=== PATIENT | male | born 1965 | race Caucasian/White ===

== ENCOUNTER 2021-03-13 | Inpatient (IN) | payer MEDICARE, OTHER | END 2021-03-13 17:34 | disposition left against medical advice (07) | DRG 280 | PROVIDERS: ADMIT Hospitalist | PROC: 5A09357 Assistance with Respiratory Ventilation, Less than 24 Consecutive Hours, Continuous Positive Airway Pressure (ICD-10-PCS; principal; 2021-03-13) | PROC: 5A0935A Assistance with Respiratory Ventilation, Less than 24 Consecutive Hours, High Flow/Velocity Cannula (ICD-10-PCS; 2021-03-13) | CPT/HCPCS: 36415; 71045; 80053; 82550; 82553; 83605; 83735; 83880; 84484; 85025; 85610; 85730; 93005; 93306; 94640; 94660; 94760; 99291 ==

== ENCOUNTER 2021-12-06 23:09 | Inpatient (IN) | payer MEDICARE, OTHER ==
[2021-12-06] MEDS ORDERED: ALBUTEROL NEBULIZED 2.5 MG/3 ML INHALATION STA (23:12)
[2021-12-06] MEDS ORDERED: IPRATROPIUM 0.5 MG/2.5 ML NEBU INHALATION STA (23:12)
--- NOTE | 2021-12-06 23:14 | ED ---
Recheck HPI - General Stated Complaint: SOB Time Seen by Provider: 12/06/21 23:10 Source: RN notes reviewed, old records reviewed Mode of arrival: EMS Limitations: no limitations - History of Present Illness Initial Comments: This is a 55-year-old male who presents via today. Patient presents today for evaluation of intubation. Patient was transfer from outside facility for ICU management of respiratory failure and hypercapnic respiratory failure and intubation. Hypoxia. Patient I will provide history history obtained from patient's prior chart transferring physician Complaint: other (Intubated for ICU placement) -: hour(s) Returns Today for: other (Patient has no change from initial evaluation outside facility) Context: planned re-check Associated Symptoms: none Treatments Prior to Arrival: other medications, urinary catheter in place, Given Antibiotics on, Given Pain Meds on - Related Data Home Medications Medication Instructions Recorded Confirmed Albuterol Inhaler [Ventolin Hfa 2 puff INHALATION RT-Q4H PRN 03/13/21 03/13/21 Inhaler] Buprenorphine HCl/Naloxone HCl 1 film SL DAILY 03/13/21 03/13/21 [Suboxone 8 mg-2 mg Sl Film] Cetirizine HCl [Zyrtec] 10 mg PO DAILY 03/13/21 03/13/21 Fluticasone Nasal [place] [Flonase 1 spr EA NOSTRIL DAILY 03/13/21 03/13/21 Nasal [place]] Gabapentin 600 mg PO TID 03/13/21 03/13/21 Ipratropium/Albuterol Sulfate 1 puff INHALATION RT-QID 03/13/21 03/13/21 [Combivent Respimat Inhaler] LORazepam [Ativan] 1 mg PO TID PRN 03/13/21 03/13/21 Lisdexamfetamine Dimesylate 60 mg PO DAILY 03/13/21 03/13/21 [Vyvanse] QUEtiapine [SEROquel] 200 mg PO HS 03/13/21 03/13/21 Tamsulosin [Flomax] 0.4 mg PO DAILY 03/13/21 03/13/21 Vilazodone HCl [Viibryd] 20 mg PO DAILY 03/13/21 03/13/21 cloNIDine HCL [Catapres] 0.1 mg PO TID 06/16/21 06/16/21 lisinopriL 40 mg PO DAILY 03/13/21 03/13/21 Allergies Allergy/AdvReac Type Severity Reaction Status Date / Time No Known Allergies Allergy Verified 12/06/21 23:21 Review of Systems ROS Statement: Those systems with pertinent positive or pertinent negative responses have been documented in the HPI. ROS Other: All systems not noted in ROS Statement are negative. Past Medical History Past Medical History: Coronary Artery Disease (CAD), COPD, Diabetes Mellitus, Hyperlipidemia, Hypertension History of Any Multi-Drug Resistant Organisms: None Reported Past Surgical History: Heart Catheterization With Stent Additional Past Surgical History / Comment(s): 2 BRAIN ANERYSM, SHOULDER Past Anesthesia/Blood Transfusion Reactions: No Reported Reaction Date of Last Stent Placement:: 2014 Past Psychological History: No Psychological Hx Reported Smoking Status: Current every day smoker Past Alcohol Use History: None Reported Past Drug Use History: None Reported - Past Family History Mother Family Medical History: Cancer Father Family Medical History: Diabetes Mellitus General Exam Limitations: physical limitation General appearance: alert, in no apparent distress, anxious, in distress Head exam: Present: atraumatic, normocephalic, normal inspection Eye exam: Present: normal appearance, PERRL, EOMI. Absent: scleral icterus, conjunctival injection, periorbital swelling ENT exam: Present: normal exam, mucous membranes moist Neck exam: Present: normal inspection. Absent: tenderness, meningismus, lymphadenopathy Respiratory exam: Present: normal lung sounds bilaterally. Absent: respiratory distress, wheezes, rales, rhonchi, stridor Cardiovascular Exam: Present: regular rate, normal rhythm, normal heart sounds. Absent: systolic murmur, diastolic murmur, rubs, gallop, clicks GI/Abdominal exam: Present: soft, normal bowel sounds. Absent: distended, ten derness, guarding, rebound, rigid Extremities exam: Present: normal inspection, full ROM, normal capillary refill. Absent: tenderness, pedal edema, joint swelling, calf tenderness Back exam: Present: normal inspection Neurological exam: Present: alert, oriented X3, CN II-XII intact Psychiatric exam: Present: normal affect, normal mood Skin exam: Present: warm, dry, intact, normal color. Absent: rash Course Vital Signs 12/06/21 12/06/21 12/06/21 23:16 23:24 23:31 Temperature 97.3 F L Pulse Rate 99 93 89 Respiratory 22 20 Rate Blood Pressure 167/117 163/93 O2 Sat by Pulse 99 95 Oximetry 12/06/21 12/06/21 23:43 23:46 Temperature Pulse Rate 87 91 Respiratory 22 Rate Blood Pressure 166/105 O2 Sat by Pulse 100 Oximetry - Reevaluation(s) Reevaluation #1: 12/07/21 01:04 Medical record is reviewed 12/07/21 01:04 Transferring paperwork is reviewed Reevaluation #2: 12/07/21 01:04 Patient in no acute distress here in the emergency department although intubated and sedated adequately - Consultations Consultation #1: Spoke with sound physicians who agree to admit the patient Consultation #2: Spoke with ICU attending who accepts patient for ICU admission Medical Decision Making - Medical Decision Making 35 male DF for evaluation presents in acute respiratory failure from outside facility. Patient be admitted to ICU for continued breathing treatment steroids cardiopulmonary support - Lab Data Lab Results 12/07/21 Range/Units 00:39 Sample Site rrad ABG pH 7.41 (7.35-7.45) ABG pCO2 63 H (35-45) mmHg ABG pO2 256 H (83-108) mmHg ABG HCO3 40 H* (21-25) mmol/L ABG Total CO2 42 H (19-24) mmol/L ABG O2 Saturation 100.0 H (94-97) % ABG Base Excess 15.7 mmol/L Justen Test Yes FiO2 100 % - Radiology Data Radiology results: report reviewed (Chest x-ray shows good ET tube placement), image reviewed Disposition Clinical Impression: Acute exacerbation of chronic obstructive pulmonary disease, Hypoxia, Acute respiratory failure Disposition: ADMITTED IP TO THIS [facility] Condition: Serious Is patient prescribed a controlled substance at d/c from ED?: No Referrals: None,Stated [Primary Care Provider] - 1-2 days
[2021-12-06] MEDS ORDERED: PROPOFOL 10 MG/ML 20 ML VIAL IV ONE (23:16)
[2021-12-06] MEDS ORDERED: MIDAZOLAM 1 MG/ML 5 ML VIAL IV STA (23:27)
--- NOTE | 2021-12-06 23:57 | XR ---
EXAMINATION TYPE: XR chest 1V portable DATE OF EXAM: 12/06/2021 COMPARISON: 03/13/2021 HISTORY: Short of breath. Respiratory failure. TECHNIQUE: FINDINGS: Endotracheal tube is approximately 4 cm from the vinita. There is nasogastric tube in the stomach. Th ere is no heart failure nor confluent pneumonic infiltrate. There is no pleural effusion. IMPRESSION: Tubing in good position. No heart failure or pulmonary consolidation.
[2021-12-07] MEDS ORDERED: MIDAZOLAM 1 MG/ML 5 ML VIAL IV STA (00:28)
[2021-12-07 00:40] LABS: ABG Base Excess 15.7 mmol/L; ABG PCO2 63 mmHg (35-45); ABG PH 7.41 (7.35-7.45); ABG PO2 256 mmHg (83-108); ABG TCO2 42 mmol/L (19-24); Allen Test Performed? Yes
[2021-12-07 00:55] LABS: ABG HCO3 40 mmol/L (21-25)
[2021-12-07] MEDS ORDERED: NALOXONE 0.4 MG/ML 1 ML VIAL IV PRN ×2 (01:00→09:15)
[2021-12-07] MEDS ORDERED: MORPHINE SULFATE 4 MG/ML SYRINGE IV PRN (01:00)
[2021-12-07] MEDS: MIDAZOLAM HCL 50 MG in SODIUM CHLORIDE 0.9% 40 ML IV SCH ×2 (01:41→08:48)
[2021-12-07 02:26] LABS: Glucose,Whole Blood 117 mg/dL (75-99)
--- NOTE | 2021-12-07 02:41 | P.HPIM ---
History of Present Illness H&P Date: 12/07/21 Patient is a 55-year-old male with a PMH of COPD and hypertension who was sent in from [facility] where the patient presented earlier today at 4 PM for shortness of breath. The patient was intubated at the time of evaluation and thereby history obtained from the chart. The patient reportedly had endorsed gradually worsening shortness of breath further 2 hours prior to presentation and [facility]. The patient was noted to have a mild fever of 100.6F on presentation with ABG showing significant hypercapnia with pCO2 101. The patient was initially placed on a nonrebreather mask without improvement and was subsequently intubated and was sent to the [facility] emergency room. Laboratory evaluation from [facility] was reviewed with influenza and COVID 19 testing negative, sodium 136, potassium 4.9, chloride 89, CO2 42, BUN 11.5, creatinine 0.65, troponin I 0.02, AST 38, ALT 28, alk phos 98, total bilirubin 1.4, lactate 1.35, WBC count 11.7, hemoglobin 15, and platelets 210. EKG revealed sinus tachycardia at 117 bpm. Review of systems: Unable to perform as patient was intubated Physical examination: General: non toxic, no distress, appears at stated age, obese Derm: no unusual rashes/lesions no unusual ecchymoses, warm, dry Head: atraumatic, normocephalic, symmetric Eyes: EOMI, no lid lag, anicteric sclera, pupils equal round reactive to light ENT: Nose and ears atraumatic Neck: No thyromegaly, no cervical lymphadenopathy, trachea midline, supple Mouth: no lip lesion Cardiovascular: S1S2 reg, no murmur, positive posterior tibial pulse bilateral, no edema, capillary refill less than 2 seconds Lungs: CTA bilateral, no rhonchi, no rales , no accessory muscle use Abdominal: soft, nontender to palpation, no guarding, no appreciable organomegaly, normal bowel sounds Ext: no gross muscle atrophy, no contractures, Neuro: Opens eyes to noxious stimuli Psych: Unable to assess, patient intubated Assessment/plan Acute hypoxic and hypercapnic respiratory failure in setting of COPD exacerbation -Continue Solu-Medrol -DuoNeb's -Pulmonary consult -Ventilator bundle Chronic conditions: Hypertension -Continue with home meds DVT prophylaxis -Lovenox The patient is admitted with an anticipated greater than 2 midnight stay for evaluation of COPD exacerbation CODE STATUS: Full Code Discussed with: Patient Anticipated discharge date: 12/[address]: Home Past Medical History Past Medical History: Coronary Artery Disease (CAD), COPD, Diabetes Mellitus, Hyperlipidemia, Hypertension History of Any Multi-Drug Resistant Organisms: None Reported Past Surgical History: Heart Catheterization With Stent Additional Past Surgical History / Comment(s): 2 BRAIN ANERYSM, SHOULDER Past Anesthesia/Blood Transfusion Reactions: No Reported Reaction Date of Last Stent Placement:: 2014 Past Psychological History: No Psychological Hx Reported Smoking Status: Current every day smoker Past Alcohol Use History: None Reported Past Drug Use History: None Reported - Past Family History Mother Family Medical History: Cancer Father Family Medical History: Diabetes Mellitus Medications and Allergies Home Medications Medication Instructions Recorded Confirmed Type Albuterol Inhaler [Ventolin Hfa 2 puff INHALATION RT-Q4H PRN 03/13/21 03/13/21 History Inhaler] Buprenorphine HCl/Naloxone HCl 1 film SL DAILY 03/13/21 03/13/21 History [Suboxone 8 mg-2 mg Sl Film] Cetirizine HCl [Zyrtec] 10 mg PO DAILY 03/13/21 03/13/21 History Fluticasone Nasal [place] [Flonase 1 spr EA NOSTRIL DAILY 03/13/21 03/13/21 History Nasal [place]] Gabapentin 600 mg PO TID 03/13/21 03/13/21 History Ipratropium/Albuterol Sulfate 1 puff INHALATION RT-QID 03/13/21 03/13/21 History [Combivent Respimat Inhaler] LORazepam [Ativan] 1 mg PO TID PRN 03/13/21 03/13/21 History Lisdexamfetamine Dimesylate 60 mg PO DAILY 03/13/21 03/13/21 History [Vyvanse] QUEtiapine [SEROquel] 200 mg PO HS 03/13/21 03/13/21 History Tamsulosin [Flomax] 0.4 mg PO DAILY 03/13/21 03/13/21 History Vilazodone HCl [Viibryd] 20 mg PO DAILY 03/13/21 03/13/21 History cloNIDine HCL [Catapres] 0.1 mg PO TID 03/13/21 03/13/21 History lisinopriL 40 mg PO DAILY 03/13/21 03/13/21 History Allergies Allergy/AdvReac Type Severity Reaction Status Date / Time No Known Allergies Allergy Verified 12/06/21 23:21 Physical Exam Vitals: Vital Signs Temp Pulse Resp BP Pulse Ox 12/07/21 01:49 98.6 F 103 H 22 182/110 91 L 12/07/21 00:30 108 H 26 H 186/118 92 L 12/06/21 23:46 91 12/06/21 23:43 87 22 166/105 100 12/06/21 23:31 89 12/06/21 23:24 93 20 163/93 95 12/06/21 23:16 97.3 F L 99 22 167/117 99 Intake and Output 12/06/21 12/06/21 12/07/21 14:59 22:59 06:59 Intake Total 72.580 Output Total 500 Balance -427.420 Intake: Intake, IV Titration 72.580 Amount propofoL 1,000 mg In 72.580 Empty Bag 1 bag @ Titrate IV .Q0M [facility] Rx#: [id number] Output: Gastric Drainage 200 Urine 300 Other: Voiding Method Indwelling Catheter Weight 114.3 kg Results Labs: Abnormal Lab Results - Last 24 Hours (Table) 12/07/21 12/07/21 Range/Units 00:39 02:22 ABG pCO2 63 H (35-45) mmHg ABG pO2 256 H (83-108) mmHg ABG HCO3 40 H* (21-25) mmol/L ABG Total CO2 42 H (19-24) mmol/L ABG O2 Saturation 100.0 H (94-97) % POC Glucose (mg/dL) 117 H (75-99) mg/dL
[2021-12-07 05:49] LABS: ABG Oxygen Saturation 94.8 % (94-97); ABG PCO2 49 mmHg (35-45); ABG PH 7.52 (7.35-7.45); ABG PO2 62 mmHg (83-108); ABG TCO2 41 mmol/L (19-24); Allen Test Performed? Yes
[2021-12-07 05:52] LABS: ABG HCO3 40 mmol/L (21-25)
[2021-12-07] MEDS: IPRATROPIUM-ALBUTEROL 3 ML NEB INHALATION SCH ×4 (07:49→20:09)
[2021-12-07 08:13] LABS: HCT 48.8 % (39.0-53.0); HGB 15.2 gm/dL (13.0-17.5); Hypochromasia Marked; MCV 96.6 fL (80.0-100.0); Mean Platelet Volume 8.8; Platelet Count 194 k/uL (150-450); Poikilocytosis Slight; RBC 5.06 m/uL (4.30-5.90); RDW 15.5 % (11.5-15.5); WBC 6.3 k/uL (3.8-10.6)
--- NOTE | 2021-12-07 08:15 | XR ---
EXAMINATION TYPE: XR chest 1V portable DATE OF EXAM: 12/07/2021 COMPARISON: 12/06/2021 HISTORY: Tube placement TECHNIQUE: Single frontal view of the chest is obtained. FINDINGS: There is an ET tube 9 cm above the vinita. There is an NG tube in stomach. There is moderate diffuse interstitial opacity possibly representing mild interstitial edema unchange d compared to previous. There is no pneumothorax or large pleural effusion. Heart size normal. The osseous structures are layla ssly intact. IMPRESSION: ET tube 9 cm above the vinita no change in the interstitial opacity possibly reflecting mild interstitial edema
[2021-12-07 08:21] LABS: African American GFR (CKD) >90 (>60 ml/min/1.73 sqM); Anion Gap 7 mmol/L; Blood Urea Nitrogen 17 mg/dL (9-20); Calcium 8.7 mg/dL (8.4-10.2); Carbon Dioxide 36 mmol/L (22-30); Chloride 92 mmol/L (98-107); Glucose 142 mg/dL (74-99); Non-African American GFR(CKD) >90 (>60 ml/min/1.73 sqM); Potassium 4.2 mmol/L (3.5-5.1); Sodium 135 mmol/L (137-145)
[2021-12-07 08:28] LABS: INR 1.4 (<1.2); Prothrombin Time 14.3 sec (9.0-12.0)
--- NOTE | 2021-12-07 10:43 | P.CNPUL ---
History of Present Illness Consult date: 12/07/21 Requesting physician: Marco Garcia Reason for consult: COPD, hypoxemia (Critical care/mechanical ventilator management) Chief complaint: Acute respiratory failure History of present illness: This is a 55-year-old male patient with a known history of coronary artery disease with previous stent placements, chronic and ongoing tobacco dependence, chronic obstructive pulmonary disease, hypertension, diabetes mellitus, brain aneurysm with repair, polysubstance abuse, chronic pain syndrome, anxiety. He was taken to [facility] for acute hypoxemic respiratory failure was intubated there and subsequently transferred here for further management. He is seen today in consultation in the intensive care unit. He was intubated yesterday 12/06/2021. He is currently on settings of assist control mode with a rate of 24, tidal volume 450, FiO2 50% and a PEEP of 5. Morning blood gases revealed a PaO2 of 62, pCO2 49, pH 7.52. He is sedated on propofol 50 mcg/kg/m. He is on Versed at 1 mg per hour. Normal saline at KVO. Chest x-ray reveals moderate diffuse interstitial opacity opacities recommending mild interstitial edema. No evidence of pneumothorax or large pleural effusions. Endotracheal tube 9 cm above the vinita that has been repositioned. Sputum culture pending. White count 6.3. Hemoglobin 15.2. Sodium 135. Potassium 4.2. Bicarb 36. BUN 1317. Creatinine 0.68. He's been initiated on DuoNeb inhalations, Pulmicort and Perforomist inhalations, IV Solu-Medrol. Review of Systems ROS unobtainable: due to endotracheal tube Past Medical History Past Medical History: Coronary Artery Disease (CAD), COPD, Diabetes Mellitus, Hyperlipidemia, Hypertension History of Any Multi-Drug Resistant Organisms: None Reported Past Surgical History: Heart Catheterization With Stent Additional Past Surgical History / Comment(s): 2 BRAIN ANERYSM, SHOULDER Past Anesthesia/Blood Transfusion Reactions: No Reported Reaction Date of Last Stent Placement:: 2014 Past Psychological History: No Psychological Hx Reported Smoking Status: Current every day smoker Past Alcohol Use History: None Reported Past Drug Use History: None Reported - Past Family History Mother Family Medical History: Cancer Father Family Medical History: Diabetes Mellitus Medications and Allergies Home Medications Medication Instructions Recorded Confirmed Type Albuterol Inhaler [Ventolin Hfa 2 puff INHALATION RT-Q4H PRN 03/13/21 03/13/21 History Inhaler] Buprenorphine HCl/Naloxone HCl 1 film SL DAILY 03/13/21 03/13/21 History [Suboxone 8 mg-2 mg Sl Film] Cetirizine HCl [Zyrtec] 10 mg PO DAILY 03/13/21 03/13/21 History Fluticasone Nasal [place] [Flonase 1 spr EA NOSTRIL DAILY 03/13/21 03/13/21 History Nasal [place]] Gabapentin 600 mg PO TID 03/13/21 03/13/21 History Ipratropium/Albuterol Sulfate 1 puff INHALATION RT-QID 03/13/21 03/13/21 History [Combivent Respimat Inhaler] LORazepam [Ativan] 1 mg PO TID PRN 03/13/21 03/13/21 History Lisdexamfetamine Dimesylate 60 mg PO DAILY 03/13/21 03/13/21 History [Vyvanse] QUEtiapine [SEROquel] 200 mg PO HS 03/13/21 03/13/21 History Tamsulosin [Flomax] 0.4 mg PO DAILY 03/13/21 03/13/21 History Vilazodone HCl [Viibryd] 20 mg PO DAILY 03/13/21 03/13/21 History cloNIDine HCL [Catapres] 0.1 mg PO TID 03/13/21 03/13/21 History lisinopriL 40 mg PO DAILY 03/13/21 03/13/21 History Allergies Allergy/AdvReac Type Severity Reaction Status Date / Time No Known Allergies Allergy Verified 12/06/21 23:21 Physical Exam Vitals: Vital Signs Temp Pulse Resp BP Pulse Ox 12/07/21 09:00 99 24 162/91 90 L 12/07/21 08:30 96 24 162/91 91 L 12/07/21 08:00 98.8 F 97 24 160/94 92 L 12/07/21 07:50 94 12/07/21 07:30 96 24 160/94 89 L 12/07/21 07:00 93 23 90 L 12/07/21 06:30 84 21 158/94 89 L 12/07/21 06:00 92 21 159/93 89 L 12/07/21 05:30 95 17 159/93 90 L 12/07/21 05:00 94 19 155/97 92 L 12/07/21 04:30 99.1 F 98 24 155/97 88 L 12/07/21 04:00 100 24 158/93 88 L 12/07/21 03:40 96 24 158/93 92 L 12/07/21 03:30 93 25 H 91 L 12/07/21 03:20 98 22 92 L 12/07/21 03:10 98 23 92 L 12/07/21 03:00 101 H 25 H 91 L 12/07/21 02:50 99 24 89 L 12/07/21 02:47 101 H 24 156/96 90 L 12/07/21 01:49 98.6 F 103 H 22 182/110 91 L 12/07/21 00:30 108 H 26 H 186/118 92 L 12/06/21 23:46 91 12/06/21 23:43 87 22 166/105 100 12/06/21 23:31 89 12/06/21 23:24 93 20 163/93 95 12/06/21 23:16 97.3 F L 99 22 167/117 99 Intake and Output 12/06/21 12/07/21 12/07/21 22:59 06:59 14:59 Intake Total 158.757 150.6 Output Total 680 130 Balance -521.243 20.6 Intake: IV 40 0.9 NACl 40 Intake, IV Titration 158.757 110.6 Amount Midazolam HCl 50 mg In 1.817 10.6 Sodium Chloride 0.9% 40 ml @ 1 MG/HR 1 mls/hr IV .Q24H [facility] Rx#:[id number] propofoL 1,000 mg In 84.36 100 Empty Bag 1 bag @ 5 MCG/ KG/MIN 3.33 mls/hr IV . Q24H [facility] Rx#:[id number] propofoL 1,000 mg In 72.580 Empty Bag 1 bag @ Titrate IV .Q0M [facility] Rx#: [id number] Output: Gastric Drainage 200 Urine 480 130 Other: Voiding Method Indwelling Catheter Weight 111 kg GENERAL EXAM: Intubated, sedated 55-year-old male patient, comfortable in no apparent distress. HEAD: Normocephalic. EYES: Normal reaction of pupils, equal size. NOSE: Clear with pink turbinates. THROAT: No erythema or exudates. NECK: No masses, no JVD. CHEST: No chest wall deformity. LUNGS: Equal air entry with bilateral wheeze. CVS: S1 and S2 normal with no audible murmur, regular rhythm. ABDOMEN: No hepatosplenomegaly, normal bowel sounds, no guarding or rigidity. SPINE: No scoliosis or deformity SKIN: No rashes CENTRAL NERVOUS SYSTEM: Sedated, tone is normal in all 4 extremities. EXTREMITIES: There is no peripheral edema. No clubbing, no cyanosis. Peripheral pulses are intact. Results - Laboratory Findings CBC and BMP: 12/07/21 07:45 12/07/21 07:45 ABG ABG pH 7.52 (7.35-7.45) H 12/07/21 05:47 ABG pCO2 49 mmHg (35-45) H 12/07/21 05:47 ABG pO2 62 mmHg (83-108) L 12/07/21 05:47 ABG O2 Saturation 94.8 % (94-97) 12/07/21 05:47 PT/INR, D-dimer PT 14.3 sec (9.0-12.0) H 12/07/21 07:45 INR 1.4 (<1.2) H 12/07/21 07:45 Abnormal lab findings: Abnormal Labs 12/07/21 12/07/21 12/07/21 00:39 02: 05:47 PT INR ABG pH 7.52 H ABG pCO2 63 H 49 H ABG pO2 256 H 62 L ABG HCO3 40 H* 40 H* ABG Total CO2 42 H 41 H ABG O2 Saturation 100.0 H Sodium Chloride Carbon Dioxide Glucose POC Glucose (mg/dL) 117 H 12/07/21 12/07/21 07:45 07:45 PT 14.3 H INR 1.4 H ABG pH ABG pCO2 ABG pO2 ABG HCO3 ABG Total CO2 ABG O2 Saturation Sodium 135 L Chloride 92 L Carbon Dioxide 36 H Glucose 142 H POC Glucose (mg/dL) - Diagnostic Findings Chest x-ray: image reviewed Assessment and Plan Assessment: 1 Acute hypoxemic respiratory failure secondary to an acute exacerbation of chronic obstructive pulmonary disease. Intubated at an outside hospital on 12/06/2021. 2 History of chronic obstructive pulmonary disease of greater than 45 year 3 History of chronic and ongoing tobacco dependence 4 Coronary artery disease with previous stent placements 5 Hypertension 6 Hyperlipidemia 7 History of polysubstance abuse 8 Chronic pain syndrome 9 Anxiety. Plan: The patient was seen and evaluated Chest x-ray, ABGs and labs reviewed Plan for daily interruption of sedation and spontaneous breathing trial Plan to extubate the patient later today if tolerated Continue DuoNeb inhalations, Pulmicort and Perforomist inhalations, IV Solu medrol Add NicoDerm patch Resume home medications once extubated We will continue to follow and make further recommendations based on his clinical status I have personally seen and examined the patient, performed the documentation and the assessment and plan as written. Number of minutes spent on the visit: 20.
[2021-12-07] MEDS: CHLORHEXIDINE GLUCONATE 15 ML CUP MUCOUS MEM SCH ×2 (10:48→20:29)
[2021-12-07] MEDS: ENOXAPARIN 40 MG/0.4 ML SYRINGE SQ SCH (10:48)
[2021-12-07 12:22] LABS: Appearance,Urine Clear (Clear); Bilirubin,Urine 1+ (Negative); Blood,Urine Negative (Negative); Color,Urine Yellow; Glucose,Urine (UA) Negative (Negative); Ketones,Urine 2+ (Negative); Leukocyte Esterase,Urine Negative (Negative); Nitrite,Urine Negative (Negative); PH, Urine 8.5 (5.0-8.0); Protein,Urine 1+ (Negative); RBC,Urine 3 /hpf (0-5); WBC,Urine 3 /hpf (0-5)
[2021-12-07] MEDS ORDERED: SODIUM CHLORIDE 0.9% 1,000 ML IV ONE (15:28)
[2021-12-07] MEDS ORDERED: ALBUTEROL NEBULIZED 2.5 MG/3 ML INHALATION PRN (15:44)
[2021-12-07] MEDS: cloNIDine HCL 0.1 MG TAB PO SCH ×2 (17:21→20:29)
[2021-12-07] MEDS: GABAPENTIN 300 MG CAP PO SCH ×2 (17:21→20:29)
[2021-12-07] MEDS: methylPREDNISolone SOD SUCCI 125 MG/2 ML VIAL IV SCH (17:21)
[2021-12-07] MEDS ORDERED: NON FORMULARY DRUG (Budesonide/Glycopyr/Formoterol [Breztri Aerosphere Inhaler] 10.7 GM Gm INHALATION SCH (20:00)
[2021-12-07] MEDS: FORMOTEROL FUMARATE 20 MCG/2 ML NEBU INHALATION SCH (20:09)
[2021-12-07] MEDS: BUDESONIDE 1 MG/2 ML NEBU INHALATION SCH (20:09)
[2021-12-07] MEDS: Buprenorphine Hcl/Naloxone Hcl [Suboxone 8 Mg-2 Mg Sl Film] 1 EACH Fil SUBLINGUAL SCH (20:28)
[2021-12-07] MEDS: QUEtiapine 200 MG TAB PO SCH (20:29)
[2021-12-08] MEDS: MIDAZOLAM HCL 50 MG in SODIUM CHLORIDE 0.9% 40 ML IV SCH (03:28)
[2021-12-08] MEDS: methylPREDNISolone SOD SUCCI 125 MG/2 ML VIAL IV SCH ×4 (03:32→23:45)
--- NOTE | 2021-12-08 06:43 | XR ---
EXAMINATION TYPE: XR chest 1V portable DATE OF EXAM: 12/08/2021 COMPARISON: 12/07/2021 HISTORY: Shortness of breath. TECHNIQUE: Single frontal view of the chest is obtained. FINDINGS: There has been interval removal of the ET tube and NG tube. There has been a significant r eduction in the pulmonary vascular congestion and interstitial edema. There is no pneumothorax or lar ge pleural effusion. The heart is slightly prominent in size. IMPRESSION: ET tube and NG tube removed. No pneumothorax. Interval decrease in the pulmonary vascula r congestion and interstitial edema.
[2021-12-08 06:44] LABS: ALT 19 U/L (4-49); AST 21 U/L (17-59); African American GFR (CKD) >90 (>60 ml/min/1.73 sqM); Albumin 3.2 g/dL (3.5-5.0); Alkaline Phosphatase 70 U/L (38-126); Anion Gap 1 mmol/L; Blood Urea Nitrogen 19 mg/dL (9-20); Calcium 8.5 mg/dL (8.4-10.2); Carbon Dioxide 37 mmol/L (22-30); Chloride 97 mmol/L (98-107); Glucose 167 mg/dL (74-99); Non-African American GFR(CKD) >90 (>60 ml/min/1.73 sqM); Phosphorus 3.3 mg/dL (2.5-4.5); Potassium 4.6 mmol/L (3.5-5.1); Sodium 135 mmol/L (137-145); Total Bilirubin 1.2 mg/dL (0.2-1.3)
[2021-12-08 06:45] LABS: Basophils % (A) 0 %; Eosinophils % (A) 0 %; HCT 49.3 % (39.0-53.0); HGB 14.6 gm/dL (13.0-17.5); Hypochromasia Marked; Lymphocytes # (A) 0.3 k/uL (1.0-4.8); Lymphocytes % (A) 5 %; MCH 28.6 pg (25.0-35.0); MCHC 29.7 g/dL (31.0-37.0); MCV 96.5 fL (80.0-100.0); Mean Platelet Volume 8.4; Monocytes # (A) 0.2 k/uL (0-1.0); Monocytes % (A) 3 %; Neutrophils # (A) 5.3 k/uL (1.3-7.7); Neutrophils % (A) 91 %; Platelet Count 198 k/uL (150-450); Poikilocytosis Slight; RBC 5.11 m/uL (4.30-5.90); RDW 15.7 % (11.5-15.5); WBC 5.8 k/uL (3.8-10.6)
[2021-12-08] MEDS: Buprenorphine Hcl/Naloxone Hcl [Suboxone 8 Mg-2 Mg Sl Film] 1 EACH Fil SUBLINGUAL SCH ×2 (07:38→22:05)
[2021-12-08] MEDS: BUDESONIDE 1 MG/2 ML NEBU INHALATION SCH ×2 (07:39→19:39)
[2021-12-08] MEDS: FORMOTEROL FUMARATE 20 MCG/2 ML NEBU INHALATION SCH ×2 (07:39→19:39)
[2021-12-08] MEDS: IPRATROPIUM-ALBUTEROL 3 ML NEB INHALATION SCH ×4 (07:39→19:39)
[2021-12-08] MEDS: GABAPENTIN 300 MG CAP PO SCH ×3 (08:14→21:04)
[2021-12-08] MEDS: ENOXAPARIN 40 MG/0.4 ML SYRINGE SQ SCH (08:14)
[2021-12-08] MEDS: lisinopriL 20 MG TAB PO SCH (08:14)
[2021-12-08] MEDS: cloNIDine HCL 0.1 MG TAB PO SCH ×3 (08:14→21:04)
[2021-12-08] MEDS: FUROSEMIDE 20 MG TAB PO SCH (08:14)
[2021-12-08] MEDS: TAMSULOSIN 0.4 MG CAP.ER.24H PO SCH (08:14)
[2021-12-08] MEDS: CHLORHEXIDINE GLUCONATE 15 ML CUP MUCOUS MEM SCH ×2 (08:15→21:04)
--- NOTE | 2021-12-08 09:26 | P.PN ---
Subjective Progress Note Date: 12/08/21 This is a 55-year-old male patient with a known history of coronary artery disease with previous stent placements, chronic and ongoing tobacco dependence, chronic obstructive pulmonary disease, hypertension, diabetes mellitus, brain aneurysm with repair, polysubstance abuse, chronic pain syndrome, anxiety. He was taken to [facility] for acute hypoxemic respiratory failure was intubated there and subsequently transferred here for further management. He is seen today in consultation in the intensive care unit. He was intubated yesterday 12/06/2021. He is currently on settings of assist control mode with a rate of 24, tidal volume 450, FiO2 50% and a PEEP of 5. Morning blood gases revealed a PaO2 of 62, pCO2 49, pH 7.52. He is sedated on propofol 50 mcg/kg/m. He is on Versed at 1 mg per hour. Normal saline at KVO. Chest x-ray reveals moderate diffuse interstitial opacity opacities recommending mild interstitial edema. No evidence of pneumothorax or large pleural effusions. Endotracheal tube 9 cm above the vinita that has been repositioned. Sputum culture pending. White count 6.3. Hemoglobin 15.2. Sodium 135. Potassium 4.2. Bicarb 36. BUN 1317. Creatinine 0.68. He's been initiated on DuoNeb inhalations, Pulmicort and Perforomist inhalations, IV Solu-Medrol. The patient is seen today 12/08/2021 in follow-up in the intensive care unit. He is successfully extubated yesterday. He is currently awake and alert in no acute distress. Maintaining good O2 saturations in the 90s on 5 L high flow nasal cannula. His normal saline and 20 ML's per hour. His x-ray shows decreased pulmonary vascular congestion and interstitial edema. No pneumothorax. Sputum culture pending. White count 5.8. Hemoglobin 14.6. Platelet count 198. Sodium 135. Potassium 4.6. Bicarb 37. BUN 19. Creatinine 0.73. He remains on DuoNeb inhalations, Pulmicort and Perforomist in halations, IV Solu-Medrol. Oral diuretics. Currently in a -197 ml balance. Objective - Vital Signs Vital signs: Vital Signs Temp 100 F H 12/08/21 08:00 Pulse 93 12/08/21 09:00 Resp 18 12/08/21 09:00 BP 144/85 12/08/21 09:00 Pulse Ox 92 L 12/08/21 09:00 Intake & Output 12/07/21 12/08/21 12/08/21 17:59 06:59 18:59 Intake Total 40 Output Total 170 Balance -130 Weight Intake: IV 40 0.9 NACl 40 NACL bolus Intake, IV Titration Amount Midazolam HCl 50 mg In Sodium Chloride 0.9% 40 ml @ 1 MG/HR 1 mls/hr IV .Q24H [facility] Rx#:[id number] propofoL 1,000 mg In Empty Bag 1 bag @ 5 MCG/ KG/MIN 3.33 mls/hr IV . Q24H [facility] Rx#:[id number] Output: Urine 170 Other: Voiding Method - Exam GENERAL EXAM: Alert, 55-year-old male patient, on 5 L nasal cannula, comfortable in no apparent distress. HEAD: Normocephalic. EYES: Normal reaction of pupils, equal size. NOSE: Clear with pink turbinates. THROAT: No erythema or exudates. NECK: No masses, no JVD. CHEST: No chest wall deformity. LUNGS: Equal air entry with no crackles, wheeze, rhonchi or dullness. CVS: S1 and S2 normal with no audible murmur, regular rhythm. ABDOMEN: No hepatosplenomegaly, normal bowel sounds, no guarding or rigidity. SPINE: No scoliosis or deformity SKIN: No rashes CENTRAL NERVOUS SYSTEM: No focal deficits, tone is normal in all 4 extremities. EXTREMITIES: There is no peripheral edema. No clubbing, no cyanosis. Peripheral pulses are intact. - Labs CBC & Chem 7: 12/08/21 05:57 12/08/21 05:57 Labs: Abnormal Lab Results - Last 24 Hours (Table) 12/07/21 12/07/21 12/07/21 Range/Units 07:45 07:45 11:30 MCHC (31.0-37.0) g/dL RDW (11.5-15.5) % Lymphocytes # (1.0-4.8) k/uL PT 14.3 H (9.0-12.0) sec INR 1.4 H (<1.2) Sodium 135 L (137-145) mmol/L Chloride 92 L (98-107) mmol/L Carbon Dioxide 36 H (22-30) mmol/L Glucose 142 H (74-99) mg/dL Total Protein (6.3-8.2) g/dL Albumin (3.5-5.0) g/dL Urine pH 8.5 H (5.0-8.0) Urine Protein 1+ H (Negative) Urine Ketones 2+ H (Negative) Urine Bilirubin 1+ H (Negative) 12/08/21 12/08/21 Range/Units 05:57 05:57 MCHC 29.7 L (31.0-37.0) g/dL RDW 15.7 H (11.5-15.5) % Lymphocytes # 0.3 L (1.0-4.8) k/uL PT (9.0-12.0) sec INR (<1.2) Sodium 135 L (137-145) mmol/L Chloride 97 L (98-107) mmol/L Carbon Dioxide 37 H (22-30) mmol/L Glucose 167 H (74-99) mg/dL Total Protein 6.0 L (6.3-8.2) g/dL Albumin 3.2 L (3.5-5.0) g/dL Urine pH (5.0-8.0) Urine Protein (Negative) Urine Ketones (Negative) Urine Bilirubin (Negative) Microbiology - Last 24 Hours (Table) 12/06/21 23:49 Gram Stain - Preliminary Sputum Sputum Culture - Preliminary Assessment and Plan Assessment: 1 Acute hypoxemic respiratory failure secondary to an acute exacerbation of chronic obstructive pulmonary disease. Intubated at an outside hospital on 12/06/2021. Extubated 12/07/2021. On 5 L nasal cannula. 2 History of chronic obstructive pulmonary disease of greater than 45 year 3 History of chronic and ongoing tobacco dependence 4 Coronary artery disease with previous stent placements 5 Hypertension 6 Hyperlipidemia 7 History of polysubstance abuse 8 Chronic pain syndrome 9 Anxiety Plan: The patient was seen and evaluated Chest x-ray, labs reviewed Current plan 5 L nasal cannula Continue DuoNeb inhalations, Pulmicort and Perforomist inhalations, IV Solu medrol Add NicoDerm patch Transfer out of the ICU today We will continue to follow I have personally seen and examined the patient, performed the documentation and the assessment and plan as written. Number of minutes spent on the visit: 10.
[2021-12-08] MEDS: NICOTINE 14MG/24HR PATCH TRANSDERM SCH (10:20)
[2021-12-08] MEDS: NALOXONE HCL SUBLINGUAL SCH (12:24)
[2021-12-08] MEDS: BUPRENORPHINE HCL SUBLINGUAL SCH (12:24)
--- NOTE | 2021-12-08 14:58 | P.PN ---
Subjective Progress Note Date: 12/08/21 This is a 55-year-old male patient with a known history of coronary artery disease with previous stent placements, chronic and ongoing tobacco dependence, chronic obstructive pulmonary disease, hypertension, diabetes mellitus, brain aneurysm with repair, polysubstance abuse, chronic pain syndrome, anxiety. He was taken to [facility] for acute hypoxemic respiratory failure was intubated there and subsequently transferred here for further management. He is seen today in consultation in the intensive care unit. He was intubated yesterday 12/06/2021. He is currently on settings of assist control mode with a rate of 24, tidal volume 450, FiO2 50% and a PEEP of 5. Morning blood gases revealed a PaO2 of 62, pCO2 49, pH 7.52. He is sedated on propofol 50 mcg/kg/m. He is on Versed at 1 mg per hour. Normal saline at KVO. Chest x-ray reveals moderate diffuse interstitial opacity opacities recommending mild interstitial edema. No evidence of pneumothorax or large pleural effusions. Endotracheal tube 9 cm above the vinita that has been repositioned. Sputum culture pending. White count 6.3. Hemoglobin 15.2. Sodium 135. Potassium 4.2. Bicarb 36. BUN 1317. Creatinine 0.68. He's been initiated on DuoNeb inhalations, Pulmicort and Perforomist inhalations, IV Solu-Medrol. Interval history: 12/08 patient was examined at the bedside. He was extubated yesterday. He was transferred out of the ICU this morning. Patient reporting chest pain when taking a deep breath when he was asked about the duration of his chest he said he had a year and half. Otherwise no acute reported changes overnight Objective - Vital Signs Vital signs: Vital Signs Temp 98.2 F 12/08/21 12:32 Pulse 74 12/08/21 12:32 Resp 24 12/08/21 11:00 BP 125/46 12/08/21 12:32 Pulse Ox 87 L 12/08/21 12:32 Intake & Output 12/07/21 12/08/21 12/08/21 17:59 06:59 18:59 Intake Total 40 Output Total 570 Balance -530 Weight Intake: IV 40 0.9 NACl 40 NACL bolus Intake, IV Titration Amount Midazolam HCl 50 mg In Sodium Chloride 0.9% 40 ml @ 1 MG/HR 1 mls/hr IV .Q24H [facility] Rx#:[id number] propofoL 1,000 mg In Empty Bag 1 bag @ 5 MCG/ KG/MIN 3.33 mls/hr IV . Q24H [facility] Rx#:[id number] Output: Urine 570 Other: Voiding Method Indwelling Catheter - Exam GENERAL EXAM: comfortable in no apparent distress. HEAD: Normocephalic. EYES: Normal reaction of pupils, equal size. NOSE: Clear with pink turbinates. THROAT: No erythema or exudates. NECK: No masses, no JVD. CHEST: No chest wall deformity. LUNGS: Bilateral wheezes with diminished air entry bilaterally CVS: S1 and S2 normal with no audible murmur, regular rhythm. ABDOMEN: No hepatosplenomegaly, normal bowel sounds, no guarding or rigidity. SPINE: No scoliosis or deformity SKIN: No rashes CENTRAL NERVOUS SYSTEM: No focal deficits, tone is normal in all 4 extremities. EXTREMITIES: There is no peripheral edema. No clubbing, no cyanosis. Peripheral pulses are intact. - Labs CBC & Chem 7: 12/08/21 05:57 12/08/21 05:57 Labs: Abnormal Lab Results - Last 24 Hours (Table) 12/08/21 12/08/21 Range/Units 05:57 05:57 MCHC 29.7 L (31.0-37.0) g/dL RDW 15.7 H (11.5-15.5) % Lymphocytes # 0.3 L (1.0-4.8) k/uL Sodium 135 L (137-145) mmol/L Chloride 97 L (98-107) mmol/L Carbon Dioxide 37 H (22-30) mmol/L Glucose 167 H (74-99) mg/dL Total Protein 6.0 L (6.3-8.2) g/dL Albumin 3.2 L (3.5-5.0) g/dL Microbiology - Last 24 Hours (Table) 12/06/21 23:49 Gram Stain - Preliminary Sputum Sputum Culture - Preliminary Assessment and Plan Assessment: Assessment and plan: #Acute hypoxemic respiratory failure -secondary to an acute exacerbation of chronic obstructive pulmonary disease. -Intubated at an outside hospital on 12/06/2021. Extubated 12/07/2021. -On 5 L nasal cannula. -Continue DuoNeb inhalations, Pulmicort and Perforomist inhalations, IV Solu medrol #Ongoing tobacco abuse -patient was counseled regarding smoking cessation -Nicotine patch #Acute CHF exacerbation -Unknown ejection fraction -Check 2-D echo -Resume diuresis with Lasix -Start small dose beta blockers since patient is still wheezing -Resume FLORENTIN inhibitor #Coronary artery disease with previous stent placements -Patient complaining of pleuritic-type chest pain, CTA with a chest ordered -2-D echo ordered since patient having pulmonary venous condition chest x-ray -Trend troponin -Start beta jose, aspirin and high-dose statins -Cardiology consulted #Hypertension -Resume clonidine -Resume FLORENTIN inhibitor #Hyperlipidemia #History of polysubstance abuse #Chronic pain syndrome -On Suboxone -Resume gabapentin #Bipolar disorder -Resume all medications #BPH -Resume Flomax #DVT prophylaxis with Lovenox
[2021-12-08] MEDS: ASPIRIN 81 MG PO SCH (15:55)
[2021-12-08] MEDS: ATORVASTATIN 40 MG TAB PO SCH ×2 (15:55→15:57)
[2021-12-08 17:34] LABS: T4, Free (Free Thyroxine) 1.19 ng/dL (0.78-2.19)
[2021-12-08] MEDS ORDERED: HEPARIN SODIUM 1,000 UN/ML (10ML VL) IV ONE (18:10)
[2021-12-08] MEDS ORDERED: HEPARIN SODIUM 1,000 UN/ML (10ML VL) IV PRN (18:10)
[2021-12-08 18:39] LABS: Basophils % (A) 0 %; Eosinophils % (A) 0 %; HGB 14.4 gm/dL (13.0-17.5); Hypochromasia Marked; Lymphocytes # (A) 0.2 k/uL (1.0-4.8); Lymphocytes % (A) 5 %; MCH 30.4 pg (25.0-35.0); MCHC 31.3 g/dL (31.0-37.0); MCV 97.3 fL (80.0-100.0); Monocytes # (A) 0.3 k/uL (0-1.0); Monocytes % (A) 5 %; Neutrophils # (A) 4.4 k/uL (1.3-7.7); Neutrophils % (A) 89 %; Platelet Count 195 k/uL (150-450); Poikilocytosis Slight; RBC 4.74 m/uL (4.30-5.90); RDW 15.6 % (11.5-15.5)
[2021-12-08 18:50] LABS: INR 1.1 (<1.2); Partial Thromboplastin Time 25.3 sec (22.0-30.0); Prothrombin Time 11.9 sec (9.0-12.0)
--- NOTE | 2021-12-08 20:00 | CONS ---
CONSULTATION HISTORY OF PRESENT ILLNESS: This is a 55-year-old gentleman with history of COPD, coronary artery disease, status post prior angioplasty, who presented to hospital complaining of progressively worsening shortness of breath about 2 hours duration. He also had mild fever. His EKG did not reveal acute ischemic changes and cardiac enzymes were negative. The patient complained of an episode of chest discomfort for which Cardiology has been consulted. His chest discomfort is sharp, precordial, mild intensity, and atypical. PAST MEDICAL HISTORY: Significant for COPD, and hypertension. MEDICATIONS: At home are as charted and include: Catapres 0.1 t.i.d., lisinopril 40 daily, Lasix 20 daily. ALLERGIES: No known drug allergies. FAMILY HISTORY: Negative for premature coronary artery disease. SOCIAL HISTORY: Significant for smoking. No history of EtOH abuse or drug abuse. REVIEW OF SYSTEMS: review of systems has been performed. Pertinent as documented. PHYSICAL EXAMINATION: On exam comfortable at rest. Vital signs are stable. CHEST exam reveals diminished air entry at the bases. I do not hear any crackles or rhonchi. HEART exam reveals first and second heart sounds. No gallop. No murmur. ABDOMEN is soft. Exam of EXTREMITIES did not reveal any edema. Peripheral pulses are felt. LAB: Show a hemoglobin of 14.6, platelet count is 198, potassium is 4.6, creatinine is 0.7. ASSESSMENT: 1. Atypical chest pain. 2. Chronic obstructive pulmonary disease exacerbation. 3. History of coronary artery disease status post angioplasty. PLAN: I will obtain troponins to rule out myocardial infarction. Treat the patient with aspirin, Zestril, Lopressor. Obtain a 2D echo tomorrow morning. MMODL / IJN: [id number] /
[2021-12-08] MEDS: HEPARIN SOD,PORK IN 0.45% NACL 25,000 UNIT in 0.45% NACL 1 250ML.BAG IV SCH (20:46)
[2021-12-08] MEDS: QUEtiapine 200 MG TAB PO SCH (21:03)
[2021-12-08] MEDS: METOPROLOL TARTRATE 12.5 MG TAB PO SCH (21:04)
[2021-12-08 22:45] LABS: Chol/HDL Ratio 6.28 Ratio; LDL Cholesterol,Calculated 103.2 mg/dL (0.0-131.0)
[2021-12-09 03:45] LABS: Basophils % (A) 0 %; Eosinophils % (A) 1 %; HCT 47.1 % (39.0-53.0); HGB 14.3 gm/dL (13.0-17.5); Hypochromasia Marked; Lymphocytes # (A) 0.3 k/uL (1.0-4.8); Lymphocytes % (A) 7 %; MCH 29.2 pg (25.0-35.0); MCHC 30.3 g/dL (31.0-37.0); MCV 96.1 fL (80.0-100.0); Mean Platelet Volume 8.3; Monocytes # (A) 0.2 k/uL (0-1.0); Monocytes % (A) 5 %; Neutrophils # (A) 3.8 k/uL (1.3-7.7); Neutrophils % (A) 86 %; Platelet Count 162 k/uL (150-450); Poikilocytosis Slight; RDW 15.3 % (11.5-15.5); WBC 4.4 k/uL (3.8-10.6)
[2021-12-09 03:56] LABS: African American GFR (CKD) >90 (>60 ml/min/1.73 sqM); Anion Gap 3 mmol/L; Blood Urea Nitrogen 20 mg/dL (9-20); Calcium 8.5 mg/dL (8.4-10.2); Carbon Dioxide 34 mmol/L (22-30); Chloride 98 mmol/L (98-107); Glucose 161 mg/dL (74-99); Non-African American GFR(CKD) >90 (>60 ml/min/1.73 sqM); Potassium 4.4 mmol/L (3.5-5.1); Sodium 135 mmol/L (137-145)
[2021-12-09 04:15] LABS: INR 1.1 (<1.2); Partial Thromboplastin Time 25.5 sec (22.0-30.0); Prothrombin Time 11.9 sec (9.0-12.0)
[2021-12-09] MEDS: methylPREDNISolone SOD SUCCI 125 MG/2 ML VIAL IV SCH ×2 (08:31→16:30)
[2021-12-09] MEDS: NICOTINE 14MG/24HR PATCH TRANSDERM SCH (08:31)
[2021-12-09] MEDS: lisinopriL 20 MG TAB PO SCH (08:32)
[2021-12-09] MEDS: ATORVASTATIN 40 MG TAB PO SCH (08:32)
[2021-12-09] MEDS: ASPIRIN 81 MG PO SCH (08:32)
[2021-12-09] MEDS: METOPROLOL TARTRATE 12.5 MG TAB PO SCH ×2 (08:32→21:28)
[2021-12-09] MEDS: FUROSEMIDE 20 MG TAB PO SCH (08:32)
[2021-12-09] MEDS: cloNIDine HCL 0.1 MG TAB PO SCH ×3 (08:32→21:28)
[2021-12-09] MEDS: GABAPENTIN 300 MG CAP PO SCH ×3 (08:32→21:28)
[2021-12-09] MEDS: TAMSULOSIN 0.4 MG CAP.ER.24H PO SCH (08:32)
[2021-12-09] MEDS: CHLORHEXIDINE GLUCONATE 15 ML CUP MUCOUS MEM SCH ×3 (08:33→21:28)
--- NOTE | 2021-12-09 09:08 | P.PN ---
Subjective Progress Note Date: 12/09/21 Principal diagnosis: The patient is a pleasant 55-year-old gentleman with a smoking and COPD as well as CAD and prior stenting who presented to the hospital with shortness of breath and was consulted to see the patient for chest discomfort. The patient was seen this morning. He remains slightly symptomatic in terms of shortness of breath as well as chest discomfort. Luis Alberto enzymes came in to be elevated. The EKG showed T-wave inversion in V1/V2/V3 concerning for anterior i schemia/LAD disease. 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 I am concerned about severe CAD I advised the patient to undergo coronary angiogram this morning. Objective - Vital Signs Vital signs: Vital Signs Temp 97.5 F L 12/09/21 08:00 Pulse 71 12/09/21 08:00 Resp 16 12/09/21 08:00 BP 135/81 12/09/21 08:00 Pulse Ox 86 L 12/09/21 08:00 Intake & Output 12/08/21 12/09/21 12/09/21 18:59 06:59 18:59 Intake Total 40 335.833 Output Total 570 Balance -530 335.833 Intake: IV 40 20 0.9 NACl 40 Invasive Line 1 10 Invasive Line 2 10 Intake, IV Titration 75.833 Amount Heparin Sod,Pork in 0.45% 75.833 NaCl 25,000 unit In 0.45 % NaCl 1 250ml.bag @ 9.05 UNITS/KG/HR 10 mls/hr IV .Q24H [facility] Rx#:[id number] Oral 240 Output: Urine 570 Other: Voiding Method Indwelling Catheter Toilet Urinal # Voids 1 1 - Constitutional General appearance: Present: no acute distress - Respiratory Respiratory: bilateral: CTA - Cardiovascular Rhythm: regular Heart sounds: normal: S1, S2 - Labs CBC & Chem 7: 12/09/21 03:22 12/09/21 03:22 Labs: Abnormal Lab Results - Last 24 Hours (Table) 12/08/21 12/08/21 12/08/21 Range/Units 15:30 15:30 15:30 MCHC (31.0-37.0) g/dL RDW (11.5-15.5) % Lymphocytes # (1.0-4.8) k/uL Sodium (137-145) mmol/L Carbon Dioxide (22-30) mmol/L Glucose (74-99) mg/dL Troponin I 0.095 H* (0.000-0.034) ng/mL HDL Cholesterol 25.00 L (40.00-60.00) mg/dL TSH 0.178 L (0.465-4.680) mIU/L 12/08/21 12/08/21 12/09/21 Range/Units 18:29 21:15 03:22 MCHC 30.3 L (31.0-37.0) g/dL RDW 15.6 H (11.5-15.5) % Lymphocytes # 0.2 L 0.3 L (1.0-4.8) k/uL Sodium (137-145) mmol/L Carbon Dioxide (22-30) mmol/L Glucose (74-99) mg/dL Troponin I 0.078 H* (0.000-0.034) ng/mL HDL Cholesterol (40.00-60.00) mg/dL TSH (0.465-4.680) mIU/L 12/09/21 Range/Units 03:22 MCHC (31.0-37.0) g/dL RDW (11.5-15.5) % Lymphocytes # (1.0-4.8) k/uL Sodium 135 L (137-145) mmol/L Carbon Dioxide 34 H (22-30) mmol/L Glucose 161 H (74-99) mg/dL Troponin I (0.000-0.034) ng/mL HDL Cholesterol (40.00-60.00) mg/dL TSH (0.465-4.680) mIU/L Microbiology - Last 24 Hours (Table) 12/06/21 23:49 Gram Stain - Preliminary Sputum Sputum Culture - Preliminary Assessment and Plan Assessment: Assessment #1 acute coronary syndrome/acute non-ST deviation myocardial infarction #2 coronary artery disease and prior revascularization #3 COPD #4 multiple comorbid conditions Plan #1 proceed with coronary angiogram #2 follow-up on the echo. The patient does have pansystolic murmur at the left upper sternal border #3 follow-up with the patient
[2021-12-09] MEDS ORDERED: LIDOCAINE 1% INJ 10MG/ML (20 ML MDV) ONE (10:13)
[2021-12-09] MEDS ORDERED: VERAPAMIL 2.5 MG/ML 2 ML AMP ONE (10:13)
[2021-12-09] MEDS ORDERED: fentaNYL (PF) 50 MCG/ML 2 ML AMP ONE (10:40)
[2021-12-09] MEDS ORDERED: HEPARIN SODIUM 1,000 UN/ML (10ML VL) ONE (10:40)
[2021-12-09] MEDS ORDERED: MIDAZOLAM 2 MG/2 ML VIAL IV ONE (10:42)
[2021-12-09] MEDS ORDERED: fentaNYL (PF) 50 MCG/ML 2 ML AMP IV ONE (10:42)
[2021-12-09] MEDS ORDERED: LIDOCAINE 1% INJ 10MG/ML (20 ML MDV) SQ ONE (10:45)
[2021-12-09] MEDS ORDERED: IV FLUID CONTINUATION 950 ML IV ONE (10:47)
[2021-12-09] MEDS ORDERED: VERAPAMIL SYRINGE (5 MG/10 ML) INTRAARTER ONE (10:48)
[2021-12-09] MEDS ORDERED: HEPARIN SODIUM 1,000 UN/ML (10ML VL) IV ONE (10:51)
[2021-12-09] MEDS: IPRATROPIUM-ALBUTEROL 3 ML NEB INHALATION SCH ×4 (10:53→20:34)
[2021-12-09] MEDS: FORMOTEROL FUMARATE 20 MCG/2 ML NEBU INHALATION SCH ×2 (10:53→20:34)
[2021-12-09] MEDS: BUDESONIDE 1 MG/2 ML NEBU INHALATION SCH ×2 (10:53→20:34)
[2021-12-09] MEDS ORDERED: IOPAMIDOL-370 125ML BTL INJ ONE (11:05)
--- NOTE | 2021-12-09 11:18 | P.CARDCATH ---
Date of Procedure: 12/09/21 Preoperative Diagnosis: Chest pain, positive troponin, history of coronary stent placement Postoperative Diagnosis: Stable coronary artery disease with critical lesion involving the ostium of the diagonal Procedure(s) Performed: Left heart catheterization without left ventriculography Description of Procedure: HISTORY: This is a 55-year-old gentleman with history of ischemic heart disease with previous stent placement done in the city of [place], comes here with complaints of chest pain and shortness of breath. His troponins are borderline elevated. Patient is advised to have a cardiac catheterization for definitive diagnosis. Patient was evaluated by Dr. Stern and also by Dr. Koroma who requested cardiac cath. CONSENT:I have discussed the risks, benefits and alternative therapies for the above-mentioned procedure and for both sedation/analgesia as well as necessary blood product administration, if indicated, as they pertain to this patient. The patient has indicated understanding and acceptance of the risks and procedures discussed. PROCEDURE: Patient was brought to the lab in a fasting state. Patient was given some IV sedation. The right wrist is infiltrated with lidocaine and right radial artery was entered using Seldinger technique. A 6-Divehi catheter was left in place and selective coronary arteriography was performed. Patient tolerated the procedure well. TR band was applied for hemostasis. No immediate complications were noted and patient was transferred to [facility] in a stable condition Conscious Sedation: Versed 2mg Fentanyl 50 g Duration 15minutes HEMODYNAMICS: The aortic pressure is about 130/70. Left ventricular end- diastolic pressure is 15-20. There was no gradient across the aortic valve SELECTIVE CORONARY ARTERIOGRAPHY: LEFT MAIN: Normal length and free of occlusive disease THE LEFT ANTERIOR DESCENDING CORONARY ARTERY:. This is a good caliber vessel giving rise to small to moderate caliber first diagonal branch and a small second diagonal branch. Patent stent in the LAD. The ostium of the second diagonal branch has a critical 90 to 95% stenosis THE LEFT CIRCUMFLEX AND IS CORONARY ARTERY: This is a fair caliber vessel giving rise good-sized OM branch. The circumflex, artery has mild diffuse disease without any critical focal lesions THE RIGHT CORONARY ARTERY:. This is a fair caliber vessel. Given a to small PDA and PLV branches. There are stents in the proximal and midportion with mild diffuse disease without any critical lesions LEFT VENTRICULOGRAPHY: Not performed FINAL IMPRESSION:. Patent stents in the LAD and the right coronary artery. Mild diffuse disease involving all 3 vessels without any critical lesions except ostium of the second diagonal, which has about 90% stenosis PLAN:. Films reviewed with intervention is, Dr. Koroma recommended maximum medical therapy. Because of the location of the lesion and size of the diagonal PROGNOSIS: Fair
[2021-12-09 12:08] LABS: Glucose,Whole Blood 143 mg/dL (75-99)
[2021-12-09] MEDS: Buprenorphine Hcl/Naloxone Hcl [Suboxone 8 Mg-2 Mg Sl Film] 1 EACH Fil SUBLINGUAL SCH ×2 (13:34→21:14)
[2021-12-09] MEDS: BUPRENORPHINE HCL SUBLINGUAL SCH (13:35)
[2021-12-09] MEDS: NALOXONE HCL SUBLINGUAL SCH (13:35)
--- NOTE | 2021-12-09 15:26 | P.PN ---
Subjective Progress Note Date: 12/09/21 This is a 55-year-old male patient with a known history of coronary artery disease with previous stent placements, chronic and ongoing tobacco dependence, chronic obstructive pulmonary disease, hypertension, diabetes mellitus, brain aneurysm with repair, polysubstance abuse, chronic pain syndrome, anxiety. He was taken to [facility] for acute hypoxemic respiratory failure was intubated there and subsequently transferred here for further management. He is seen today in consultation in the intensive care unit. He was intubated yesterday 12/06/2021. He is currently on settings of assist control mode with a rate of 24, tidal volume 450, FiO2 50% and a PEEP of 5. Morning blood gases revealed a PaO2 of 62, pCO2 49, pH 7.52. He is sedated on propofol 50 mcg/kg/m. He is on Versed at 1 mg per hour. Normal saline at KVO. Chest x-ray reveals moderate diffuse interstitial opacity opacities recommending mild interstitial edema. No evidence of pneumothorax or large pleural effusions. Endotracheal tube 9 cm above the [place] that has been repositioned. Sputum culture pending. White count 6.3. Hemoglobin 15.2. Sodium 135. Potassium 4.2. Bicarb 36. BUN 1317. Creatinine 0.68. He's been initiated on DuoNeb inhalations, Pulmicort and Perforomist inhalations, IV Solu-Medrol. The patient is seen today 12/08/2021 in follow-up in the intensive care unit. He is successfully extubated yesterday. He is currently awake and alert in no acute distress. Maintaining good O2 saturations in the 90s on 5 L high flow nasal cannula. His normal saline and 20 ML's per hour. His x-ray shows decreased pulmonary vascular congestion and interstitial edema. No pneumothorax. Sputum culture pending. White count 5.8. Hemoglobin 14.6. Platelet count 198. Sodium 135. Potassium 4.6. Bicarb 37. BUN 19. Creatinine 0.73. He remains on DuoNeb inhalations, Pulmicort and Perforomist i nhalations, IV Solu-Medrol. Oral diuretics. Currently in a -197 ml balance. On 12/09/2021, the patient is still having some shortness of breath and chest discomfort. The patient has recovered some acute COPD exacerbation respiratory failure the patient was extubated and the patient is being considered for cardiac catheterization. The patient is known to have CAD and previous history of coronary stenting and EKG showed abnormalities with T-wave inversion along the anterior leads concerning of an anterior wall ischemia. Based on that, cardiac wind turbine sheet metal worker advised cardiac catheterization. Noted the patient had a white cell count of 4.4 with hemoglobin 14.3 and a platelet of 162. BUN with a 20 with a creatinine of 0.6. The cardiac catheterization was completed and the patient was found to have a patent stent in the LAD and RCA. There was mild diffuse disease involving 3 vessels without any critical lesions except ostium of the second diagonal which involved a 90% stenosis. This was reviewed by interventional radiology and the recommendation was maximal medical treatment. For now, the patient remains on DuoNeb nebulized treatments around the clock. The patient is also receiving Pulmicort Respules and he remains on IV Solu Medrol 60 mg every 8 hours. He is on a nicotine patch. Lasix and a dose of 20 mg by mouth once a day. He is on oral aspirin 81 mg by mouth daily. He is on IV heparin per protocol. He is also on metoprolol 12.5 mg by mouth twice a day. Objective - Vital Signs Vital signs: Vital Signs Temp 97.5 F L 12/09/21 08:00 Pulse 71 12/09/21 08:00 Resp 16 12/09/21 08:00 BP 135/81 12/09/21 08:00 Pulse Ox 86 L 12/09/21 08:00 Intake & Output 12/08/21 12/09/21 12/09/21 18:59 06:59 18:59 Intake Total 40 335.833 50 Output Total 570 Balance -530 335.833 50 Intake: IV 40 20 50 0.9 NACl 40 Invasive Line 1 10 Invasive Line 2 10 Intake, IV Titration 75.833 Amount Heparin Sod,Pork in 0.45% 75.833 NaCl 25,000 unit In 0.45 % NaCl 1 250ml.bag @ 9.05 UNITS/KG/HR 10 mls/hr IV .Q24H [facility] Rx#:[id number] Oral 240 Output: Urine 570 Other: Voiding Method Indwelling Catheter Toilet Toilet Urinal Urinal # Voids 1 1 - Exam GENERAL EXAM: Alert, 55-year-old male patient, on 5 L nasal cannula, comfortable in no apparent distress. HEAD: Normocephalic. EYES: Normal reaction of pupils, equal size. NOSE: Clear with pink turbinates. THROAT: No erythema or exudates. NECK: No masses, no JVD. CHEST: No chest wall deformity. LUNGS: Equal air entry with no crackles, wheeze, rhonchi or dullness. CVS: S1 and S2 normal with no audible murmur, regular rhythm. ABDOMEN: No hepatosplenomegaly, normal bowel sounds, no guarding or rigidity. SPINE: No scoliosis or deformity SKIN: No rashes CENTRAL NERVOUS SYSTEM: No focal deficits, tone is normal in all 4 extremities. EXTREMITIES: There is no peripheral edema. No clubbing, no cyanosis. Peripheral pulses are intact. - Labs CBC & Chem 7: 12/09/21 03:12/09/21 03: Labs: Abnormal Lab Results - Last 24 Hours (Table) 12/08/21 12/08/21 12/08/21 Range/Units 15:30 15:30 15:30 MCHC (31.0-37.0) g/dL RDW (11.5-15.5) % Lymphocytes # (1.0-4.8) k/uL Sodium (137-145) mmol/L Carbon Dioxide (22-30) mmol/L Glucose (74-99) mg/dL Troponin I 0.095 H* (0.000-0.034) ng/mL HDL Cholesterol 25.00 L (40.00-60.00) mg/dL TSH 0.178 L (0.465-4.680) mIU/L 12/08/21 12/08/21 12/09/21 Range/Units 18:29 21:15 03:22 MCHC 30.3 L (31.0-37.0) g/dL RDW 15.6 H (11.5-15.5) % Lymphocytes # 0.2 L 0.3 L (1.0-4.8) k/uL Sodium (137-145) mmol/L Carbon Dioxide (22-30) mmol/L Glucose (74-99) mg/dL Troponin I 0.078 H* (0.000-0.034) ng/mL HDL Cholesterol (40.00-60.00) mg/dL TSH (0.465-4.680) mIU/L 12/09/21 Range/Units 03:22 MCHC (31.0-37.0) g/dL RDW (11.5-15.5) % Lymphocytes # (1.0-4.8) k/uL Sodium 135 L (137-145) mmol/L Carbon Dioxide 34 H (22-30) mmol/L Glucose 161 H (74-99) mg/dL Troponin I (0.000-0.034) ng/mL HDL Cholesterol (40.00-60.00) mg/dL TSH (0.465-4.680) mIU/L Microbiology - Last 24 Hours (Table) 12/06/21 23:49 Gram Stain - Final Sputum Sputum Culture - Final Assessment and Plan Plan: 1 Acute hypoxemic respiratory failure secondary to an acute exacerbation of chronic obstructive pulmonary disease. Intubated at an outside hospital on 12/06/2021. The patient is currently extubated the patient is currently between 5 and 6 L about 2 by nasal cannula being treated for an acute COPD exacerbation. 2 History of chronic obstructive pulmonary disease of greater than 45 year 3 History of chronic and ongoing tobacco dependence 4 Coronary artery disease with previous stent placements the patient underwent a cardiac catheterization the patient was found to have patent stent with a LAD and RCA and the patient had some mild diffuse disease and a 90% diagonal lesion that was not amenable for any intervention 5 Hypertension 6 Hyperlipidemia 7 History of polysubstance abuse 8 Chronic pain syndrome 9 Anxiety. Plan: We'll continue bronchodilators Continue steroids and to start tapering as of tomorrow Wean down FiO2 to maintain saturation above 90% Cardiac medication per cardiology Nicotine patch We'll continue to follow
--- NOTE | 2021-12-09 16:20 | P.PN ---
Subjective Progress Note Date: 12/09/21 This is a 55-year-old male patient with a known history of coronary artery disease with previous stent placements, chronic and ongoing tobacco dependence, chronic obstructive pulmonary disease, hypertension, diabetes mellitus, brain aneurysm with repair, polysubstance abuse, chronic pain syndrome, anxiety. He was taken to [facility] for acute hypoxemic respiratory failure was intubated there and subsequently transferred here for further management. He is seen today in consultation in the intensive care unit. He was intubated yesterday 12/06/2021. He is currently on settings of assist control mode with a rate of 24, tidal volume 450, FiO2 50% and a PEEP of 5. Morning blood gases revealed a PaO2 of 62, pCO2 49, pH 7.52. He is sedated on propofol 50 mcg/kg/m. He is on Versed at 1 mg per hour. Normal saline at KVO. Chest x-ray reveals moderate diffuse interstitial opacity opacities recommending mild interstitial edema. No evidence of pneumothorax or large pleural effusions. Endotracheal tube 9 cm above the [place] that has been repositioned. Sputum culture pending. White count 6.3. Hemoglobin 15.2. Sodium 135. Potassium 4.2. Bicarb 36. BUN 1317. Creatinine 0.68. He's been initiated on DuoNeb inhalations, Pulmicort and Perforomist inhalations, IV Solu-Medrol. Interval history: 12/08 patient was examined at the bedside. He was extubated yesterday. He was transferred out of the ICU this morning. Patient reporting chest pain when taking a deep breath when he was asked about the duration of his chest he said he had a year and half. Otherwise no acute reported changes overnight 12/09 patient was seen and examined at the bedside. His troponin was positive yesterday cardiology decided to take the patient to the lab scientist. Status post left heart cath which showed stents in the LAD and the right coronary artery. Mild diffuse disease involving all 3 vessels without any critical lesions except ostium of the second diagonal, which has about 90% stenosis. Cardiology recommended medical therapy Objective - Vital Signs Vital signs: Vital Signs Temp 97.5 F L 12/09/21 08:00 Pulse 68 12/09/21 15:30 Resp 16 12/09/21 14:00 BP 140/64 12/09/21 14:45 Pulse Ox 92 L 12/09/21 15:24 Intake & Output 12/08/21 12/09/21 12/09/21 18:59 06:59 18:59 Intake Total 40 335.833 850 Output Total 570 Balance -530 335.833 850 Intake: IV 40 20 850 0.9 NACl 40 800 Invasive Line 1 10 Invasive Line 2 10 Intake, IV Titration 75.833 Amount Heparin Sod,Pork in 0.45% 75.833 NaCl 25,000 unit In 0.45 % NaCl 1 250ml.bag @ 9.05 UNITS/KG/HR 10 mls/hr IV .Q24H [facility] Rx#:[id number] Oral 240 Output: Urine 570 Other: Voiding Method Indwelling Catheter Toilet Toilet Urinal Urinal # Voids 1 1 - Exam GENERAL EXAM: comfortable in no apparent distress. HEAD: Normocephalic. EYES: Normal reaction of pupils, equal size. NOSE: Clear with pink turbinates. THROAT: No erythema or exudates. NECK: No masses, no JVD. CHEST: No chest wall deformity. LUNGS: Bilateral wheezes with diminished air entry bilaterally CVS: S1 and S2 normal with no audible murmur, regular rhythm. ABDOMEN: No hepatosplenomegaly, normal bowel sounds, no guarding or rigidity. SPINE: No scoliosis or deformity SKIN: No rashes CENTRAL NERVOUS SYSTEM: No focal deficits, tone is normal in all 4 extremities. EXTREMITIES: There is no peripheral edema. No clubbing, no cyanosis. Peripheral pulses are intact. - Labs CBC & Chem 7: 12/09/21 03:22 12/09/21 03:22 Labs: Abnormal Lab Results - Last 24 Hours (Table) 12/08/21 12/08/21 12/08/21 Range/Units 15:30 15:30 15:30 MCHC (31.0-37.0) g/dL RDW (11.5-15.5) % Lymphocytes # (1.0-4.8) k/uL Sodium (137-145) mmol/L Carbon Dioxide (22-30) mmol/L Glucose (74-99) mg/dL POC Glucose (mg/dL) (75-99) mg/dL Troponin I 0.095 H* (0.000-0.034) ng/mL HDL Cholesterol 25.00 L (40.00-60.00) mg/dL TSH 0.178 L (0.465-4.680) mIU/L 12/08/21 12/08/21 12/09/21 Range/Units 18:29 21:15 03:22 MCHC 30.3 L (31.0-37.0) g/dL RDW 15.6 H (11.5-15.5) % Lymphocytes # 0.2 L 0.3 L (1.0-4.8) k/uL Sodium (137-145) mmol/L Carbon Dioxide (22-30) mmol/L Glucose (74-99) mg/dL POC Glucose (mg/dL) (75-99) mg/dL Troponin I 0.078 H* (0.000-0.034) ng/mL HDL Cholesterol (40.00-60.00) mg/dL TSH (0.465-4.680) mIU/L 12/09/21 12/09/21 Range/Units 03:22 12:06 MCHC (31.0-37.0) g/dL RDW (11.5-15.5) % Lymphocytes # (1.0-4.8) k/uL Sodium 135 L (137-145) mmol/L Carbon Dioxide 34 H (22-30) mmol/L Glucose 161 H (74-99) mg/dL POC Glucose (mg/dL) 143 H (75-99) mg/dL Troponin I (0.000-0.034) ng/mL HDL Cholesterol (40.00-60.00) mg/dL TSH (0.465-4.680) mIU/L Microbiology - Last 24 Hours (Table) 12/06/21 23:49 Gram Stain - Final Sputum Sputum Culture - Final Assessment and Plan Assessment: Assessment and plan: #Acute hypoxemic respiratory failure -secondary to an acute exacerbation of chronic obstructive pulmonary disease. -Intubated at an outside hospital on 12/06/2021. -Extubated 12/07/2021. -On 6 L nasal cannula. -Continue DuoNeb inhalations, Pulmicort and Perforomist inhalations, IV Solu medrol #Ongoing tobacco abuse -patient was counseled regarding smoking cessation -Nicotine patch #Acute CHF exacerbation -Unknown ejection fraction -Check 2-D echo -Resume diuresis with Lasix -Start small dose beta blockers since patient is still wheezing -Resume FLORENTIN inhibitor #Coronary artery disease with previous stent placements -Status post left heart cath : Patent stents in the LAD and the right coronary artery. Mild diffuse disease involving all 3 vessels without any critical lesions except ostium of the second diagonal, which has about 90% stenosis -Cardiology recommended to maximize his medical therapy -2-D echo ordered since patient having pulmonary venous condition chest x-ray -Resume beta jose, aspirin and high-dose statins -Cardiology consulted #Hypertension -Resume clonidine -Resume FLORENTIN inhibitor #Hyperlipidemia. #History of polysubstance abuse #Chronic pain syndrome. -On Suboxone -Resume gabapentin #Bipolar disorder -Resume all medications #BPH -Resume Flomax #DVT prophylaxis with Lovenox
[2021-12-09 17:16] LABS: Glucose,Whole Blood 152 mg/dL (75-99)
[2021-12-09] MEDS: HEPARIN SOD,PORK IN 0.45% NACL 25,000 UNIT in 0.45% NACL 1 250ML.BAG IV SCH (19:33)
[2021-12-09 20:07] LABS: Glucose,Whole Blood 199 mg/dL (75-99)
[2021-12-09] MEDS: QUEtiapine 200 MG TAB PO SCH (21:28)
[2021-12-09] MEDS: INSULIN ASPART (NovoLOG) 100 UNIT/ML VIAL SQ SCH (21:29)
[2021-12-10 06:06] LABS: Glucose,Whole Blood 135 mg/dL (75-99)
[2021-12-10] MEDS: INSULIN ASPART (NovoLOG) 100 UNIT/ML VIAL SQ SCH ×4 (06:32→20:13)
[2021-12-10] MEDS: FORMOTEROL FUMARATE 20 MCG/2 ML NEBU INHALATION SCH ×2 (08:57→20:42)
[2021-12-10] MEDS: BUDESONIDE 1 MG/2 ML NEBU INHALATION SCH ×2 (08:57→20:42)
[2021-12-10] MEDS: IPRATROPIUM-ALBUTEROL 3 ML NEB INHALATION SCH ×4 (08:57→20:42)
[2021-12-10] MEDS: Buprenorphine Hcl/Naloxone Hcl [Suboxone 8 Mg-2 Mg Sl Film] 1 EACH Fil SUBLINGUAL SCH ×2 (10:03→20:13)
[2021-12-10] MEDS: cloNIDine HCL 0.1 MG TAB PO SCH ×3 (10:10→21:13)
[2021-12-10] MEDS: methylPREDNISolone SOD SUCCI 125 MG/2 ML VIAL IV SCH ×3 (10:11→16:41)
[2021-12-10] MEDS: TAMSULOSIN 0.4 MG CAP.ER.24H PO SCH (10:11)
[2021-12-10] MEDS: GABAPENTIN 300 MG CAP PO SCH ×3 (10:11→21:13)
[2021-12-10] MEDS: FUROSEMIDE 20 MG TAB PO SCH (10:11)
[2021-12-10] MEDS: lisinopriL 20 MG TAB PO SCH (10:11)
[2021-12-10] MEDS: METOPROLOL TARTRATE 12.5 MG TAB PO SCH ×2 (10:11→21:13)
[2021-12-10] MEDS: ATORVASTATIN 40 MG TAB PO SCH (10:11)
[2021-12-10] MEDS: ASPIRIN 81 MG PO SCH (10:11)
[2021-12-10] MEDS: CHLORHEXIDINE GLUCONATE 15 ML CUP MUCOUS MEM SCH ×2 (10:12→20:13)
[2021-12-10] MEDS: NICOTINE 14MG/24HR PATCH TRANSDERM SCH (10:19)
[2021-12-10 11:30] LABS: African American GFR (CKD) >90 (>60 ml/min/1.73 sqM); Anion Gap 5 mmol/L; Blood Urea Nitrogen 27 mg/dL (9-20); Calcium 8.4 mg/dL (8.4-10.2); Carbon Dioxide 34 mmol/L (22-30); Chloride 99 mmol/L (98-107); Glucose 201 mg/dL (74-99); Non-African American GFR(CKD) >90 (>60 ml/min/1.73 sqM); Potassium 4.5 mmol/L (3.5-5.1); Sodium 138 mmol/L (137-145)
[2021-12-10 11:43] LABS: Glucose,Whole Blood 154 mg/dL (75-99)
[2021-12-10] MEDS: FUROSEMIDE 10 MG/ML 4 ML VIAL IV SCH (12:15)
[2021-12-10] MEDS: ISOSORBIDE MONONITRATE ER 30 MG TAB.ER.24H PO SCH (12:15)
--- NOTE | 2021-12-10 13:32 | P.PN ---
Subjective Progress Note Date: 12/10/21 This is a 55-year-old male patient with a known history of coronary artery disease with previous stent placements, chronic and ongoing tobacco dependence, chronic obstructive pulmonary disease, hypertension, diabetes mellitus, brain aneurysm with repair, polysubstance abuse, chronic pain syndrome, anxiety. He was taken to [facility] for acute hypoxemic respiratory failure was intubated there and subsequently transferred here for further management. He is seen today in consultation in the intensive care unit. He was intubated yesterday 12/06/2021. He is currently on settings of assist control mode with a rate of 24, tidal volume 450, FiO2 50% and a PEEP of 5. Morning blood gases revealed a PaO2 of 62, pCO2 49, pH 7.52. He is sedated on propofol 50 mcg/kg/m. He is on Versed at 1 mg per hour. Normal saline at KVO. Chest x-ray reveals moderate diffuse interstitial opacity opacities recommending mild interstitial edema. No evidence of pneumothorax or large pleural effusions. Endotracheal tube 9 cm above the [place] that has been repositioned. Sputum culture pending. White count 6.3. Hemoglobin 15.2. Sodium 135. Potassium 4.2. Bicarb 36. BUN 1317. Creatinine 0.68. He's been initiated on DuoNeb inhalations, Pulmicort and Perforomist inhalations, IV Solu-Medrol. The patient is seen today 12/08/2021 in follow-up in the intensive care unit. He is successfully extubated yesterday. He is currently awake and alert in no acute distress. Maintaining good O2 saturations in the 90s on 5 L high flow nasal cannula. His normal saline and 20 ML's per hour. His x-ray shows decreased pulmonary vascular congestion and interstitial edema. No pneumothorax. Sputum culture pending. White count 5.8. Hemoglobin 14.6. Platelet count 198. Sodium 135. Potassium 4.6. Bicarb 37. BUN 19. Creatinine 0.73. He remains on DuoNeb inhalations, Pulmicort and Perforomist i nhalations, IV Solu-Medrol. Oral diuretics. Currently in a -197 ml balance. On 12/09/2021, the patient is still having some shortness of breath and chest discomfort. The patient has recovered some acute COPD exacerbation respiratory failure the patient was extubated and the patient is being considered for cardiac catheterization. The patient is known to have CAD and previous history of coronary stenting and EKG showed abnormalities with T-wave inversion along the anterior leads concerning of an anterior wall ischemia. Based on that, cardiac saddle and harness maker advised cardiac catheterization. Noted the patient had a white cell count of 4.4 with hemoglobin 14.3 and a platelet of 162. BUN with a 20 with a creatinine of 0.6. The cardiac catheterization was completed and the patient was found to have a patent stent in the LAD and RCA. There was mild diffuse disease involving 3 vessels without any critical lesions except ostium of the second diagonal which involved a 90% stenosis. This was reviewed by interventional radiology and the recommendation was maximal medical treatment. For now, the patient remains on DuoNeb nebulized treatments around the clock. The patient is also receiving Pulmicort Respules and he remains on IV Solu Medrol 60 mg every 8 hours. He is on a nicotine patch. Lasix and a dose of 20 mg by mouth once a day. He is on oral aspirin 81 mg by mouth daily. He is on IV heparin per protocol. He is also on metoprolol 12.5 mg by mouth twice a day. 12/10/2021, I'm seeing the patient for a follow-up. The patient has no chest pain. The patient is still bronchus spastic and wheezy regarding his underlying COPD exacerbation. He remains on IV Solu-Medrol. He is also receiving DuoNeb nebulized treatments around the clock. Nopalpitations. No cardiac a rrhythmias.no other complaints otherwise for now.other new complaints otherwise for now. The renal function is stable at creatinine of 0.7. Patient's sodium level is at 138 with a potassium level of 4.5. Cardiac catheterization was completed yesterday and the results were noted. Objective - Vital Signs Vital signs: Vital Signs Temp 97.9 F 12/10/21 04:00 Pulse 63 12/10/21 12:12 Resp 18 12/10/21 12:12 BP 160/87 12/10/21 12:12 Pulse Ox 96 12/10/21 12:12 Intake & Output 12/09/21 12/10/21 12/10/21 18:59 06:59 18:59 Intake Total 850 20 10 Balance 850 20 10 Intake: IV 850 20 10 0.9 NACl 800 Invasive Line 2 20 10 Other: Voiding Method Toilet Toilet Toilet Urinal Urinal Urinal # Voids 1 - Exam GENERAL EXAM: Alert, 55-year-old male patient, on 5 L nasal cannula, comfortable in no apparent distress. HEAD: Normocephalic. EYES: Normal reaction of pupils, equal size. NOSE: Clear with pink turbinates. THROAT: No erythema or exudates. NECK: No masses, no JVD. CHEST: No chest wall deformity. LUNGS: Equal air entry with no crackles, wheeze, rhonchi or dullness. CVS: S1 and S2 normal with no audible murmur, regular rhythm. ABDOMEN: No hepatosplenomegaly, normal bowel sounds, no guarding or rigidity. SPINE: No scoliosis or deformity SKIN: No rashes CENTRAL NERVOUS SYSTEM: No focal deficits, tone is normal in all 4 extremities. EXTREMITIES: There is no peripheral edema. No clubbing, no cyanosis. Peripheral pulses are intact. - Labs CBC & Chem 7: 12/09/21 03:12/10/21 11:01 Labs: Abnormal Lab Results - Last 24 Hours (Table) 12/09/21 12/09/21 12/10/21 Range/Units 17:06 20:05 06:05 Carbon Dioxide (22-30) mmol/L BUN (9-20) mg/dL Glucose (74-99) mg/dL POC Glucose (mg/dL) 152 H 199 H 135 H (75-99) mg/dL 12/10/21 12/10/21 Range/Units 11:01 11:42 Carbon Dioxide 34 H (22-30) mmol/L BUN 27 H (9-20) mg/dL Glucose 201 H (74-99) mg/dL POC Glucose (mg/dL) 154 H (75-99) mg/dL Microbiology - Last 24 Hours (Table) 12/06/21 23:49 Gram Stain - Final Sputum Sputum Culture - Final Assessment and Plan Plan: 1 Acute hypoxemic respiratory failure secondary to an acute exacerbation of chronic obstructive pulmonary disease. Intubated at an outside hospital on 12/06/2021. The patient is currently extubated the patient remains on oxygen at 5 L O2 nasal cannula. Remains bronchospastic and wheezy despite some limited improvement over the past 24-48 hours. Cardiac catheterization was completed, it showed nonocclusive disease. 2 History of chronic obstructive pulmonary disease of greater than 45 year 3 History of chronic and ongoing tobacco dependence 4 Coronary artery disease with previous stent placements the patient underwent a cardiac catheterization the patient was found to have patent stent with a LAD and RCA and the patient had some mild diffuse disease and a 90% diagonal lesion that was not amenable for any intervention 5 Hypertension 6 Hyperlipidemia 7 History of polysubstance abuse 8 Chronic pain syndrome 9 Anxiety. Plan: We'll continue bronchodilators Continue steroids andwe'll keep the patient IV Solu Medrol for another 24 hours Wean down FiO2 to maintain saturation above 90% Cardiac medication per cardiology Nicotine patch We'll continue to follow
--- NOTE | 2021-12-10 14:31 | P.PN ---
Subjective This is a pleasant 55-year-old male past medical history significant for coronary artery disease s/p prior PIC LAD and RCA, COPD, diabetes mellitus, hypertension, dyslipidemia, history of brain aneurysm and chronic nicotine dependence. He follows in the office with Dr. Sheikh. Patient presents to the hospital shortness of breath and cardiology was consulted for chest discomfort. Patient underwent cardiac catheterization with Dr. hSeikh on 12/09/2021 which revealed patent stents in the LAD and the right coronary artery. Mild diffuse disease involving all 3 vessels without any critical lesions except ostium of the second diagonal, which has about 90% stenosis. Films reviewed with intervention is, Dr. Koroma recommended maximum medical therapy. Patient seen and examined at bedside, no acute distress. He denies any further chest discomfort. He denies any shortness of breath. Patient is hemodynamically stable. Bilateral lower extremity edema present. GENERAL: Well-appearing, well-nourished and in no acute distress. NECK: Supple without JVD or thyromegaly. LUNGS: Breath sounds bilateral wheezing mild noted to auscultation bilaterally. Respiration equal and unlabored. No wheezes, rales or rhonchi. HEART: Regular rate and rhythm without murmurs, rubs or gallops. S1 and S2 heard. EXTREMITIES: Normal range of motion, 1+ bilateral lower extremity edema. No clubbing or cyanosis. Peripheral pulses intact. SKIN right radial cath site clean dry intact 2+ pulses no hematoma ASSESSMENT Acute coronary syndrome/acute non-ST deviation myocardial infarction s/p cardiac cath 12/09/2021 Coronary artery disease s/p prior PIC LAD and RCA COPD Type 2 diabetes mellitus Hypertension Dyslipidemia History of brain aneurysm Chronic nicotine dependence PLAN 2D echo pending Add Imdur Start IV Lasix 40 mg daily Continue lisinopril and beta jose Continue aspirin, statin, clonidine Monitor I/Os, renal function and electrolytes Hopefully discharge in 24 hours Further recommendations based on clinical course Nurse Practitioner note has been reviewed, I agree with a documented findings and plan of care. Patient was seen and examined. Objective - Vital Signs Vital signs: Vital Signs Temp 97.9 F 12/10/21 04:00 Pulse 63 12/10/21 12:12 Resp 18 12/10/21 12:12 BP 160/87 12/10/21 12:12 Pulse Ox 96 12/10/21 12:12 Intake & Output 12/09/21 12/10/21 12/10/21 18:59 06:59 18:59 Intake Total 850 20 10 Balance 850 20 10 Intake: IV 850 20 10 0.9 NACl 800 Invasive Line 2 20 10 Other: Voiding Method Toilet Toilet Toilet Urinal Urinal Urinal # Voids 1 - Labs CBC & Chem 7: 12/09/21 03:22 12/10/21 11:01 Labs: Abnormal Lab Results - Last 24 Hours (Table) 12/09/21 12/09/21 12/10/21 Range/Units 17:06 20:05 06:05 Carbon Dioxide (22-30) mmol/L BUN (9-20) mg/dL Glucose (74-99) mg/dL POC Glucose (mg/dL) 152 H 199 H 135 H (75-99) mg/dL 12/10/21 12/10/21 Range/Units 11:01 11:42 Carbon Dioxide 34 H (22-30) mmol/L BUN 27 H (9-20) mg/dL Glucose 201 H (74-99) mg/dL POC Glucose (mg/dL) 154 H (75-99) mg/dL
[2021-12-10] MEDS: NALOXONE HCL SUBLINGUAL SCH (15:34)
[2021-12-10] MEDS: BUPRENORPHINE HCL SUBLINGUAL SCH (15:34)
[2021-12-10] MEDS: LORazepam 1 MG TAB PO PRN (16:40)
--- NOTE | 2021-12-10 16:46 | P.PN ---
Subjective Progress Note Date: 12/10/21 Pt doing better today, down to 4L O2. Says exercise tolerance has improved as well. Able to ambulate to the window at the end of hallway and back Gen: awake, alert HEENT: normocephalic, atraumatic, good hearing acuity, moist mucous membranes Resp: good air exchange, breathing comfortably with no accessory muscle use CVS: good distal perfusion x 4, GI: soft, NTTP, ND : no SPT, no CVAT, terrell catheter not present MSK: no pitting edema, no clubbing Neuro: non-focal, moving all extremities Psych: cooperative, euthymic mood Assessment/plan: #Acute hypoxemic respiratory failure #Acute exacerbation of chronic obstructive pulmonary disease. -Intubated at an outside hospital on 12/06/2021. -Extubated 12/07/2021. -On 4 L nasal cannula. -Continue DuoNeb inhalations, Pulmicort and Perforomist inhalations, IV Solu medrol #Ongoing tobacco abuse -patient was counseled regarding smoking cessation -Nicotine patch #Acute CHF exacerbation -Unknown ejection fraction -Check 2-D echo, pending read -Resume diuresis with Lasix -Start small dose beta blockers since patient is still wheezing -Resume FLORENTIN inhibitor #Coronary artery disease with previous stent placements #NSTEMI -Status post left heart cath : Patent stents in the LAD and the right coronary artery. Mild diffuse disease involving all 3 vessels without any critical lesions except ostium of the second diagonal, which has about 90% stenosis -Cardiology recommended to maximize his medical therapy -2-D echo ordered since patient having pulmonary venous condition chest x-ray -Resume beta jose, aspirin and high-dose statins -Cardiology consulted #Hypertension -Resume clonidine -Resume FLORENTIN inhibitor #Hyperlipidemia. -statin #History of polysubstance abuse #Chronic pain syndrome. -On Suboxone -Resume gabapentin #Bipolar disorder -Resume all medications #BPH -Resume Flomax #DVT prophylaxis with Lovenox Objective - Vital Signs Vital signs: Vital Signs Temp 97.9 F 12/10/21 04:00 Pulse 67 12/10/21 16:38 Resp 18 12/10/21 16:38 BP 143/70 12/10/21 16:38 Pulse Ox 98 12/10/21 16:38 Intake & Output 0312/10/21 12/10/21 18:59 06:59 18:59 Intake Total 850 20 430 Balance 850 20 430 Intake: IV 850 20 10 0.9 NACl 800 Invasive Line 2 20 10 Oral 420 Other: Voiding Method Toilet Toilet Toilet Urinal Urinal Urinal # Voids 1 - Labs CBC & Chem 7: 12/09/21 03:22 12/10/21 11:01 Labs: Abnormal Lab Results - Last 24 Hours (Table) 12/09/21 12/09/21 12/10/21 Range/Units 17:06 20:05 06:05 Carbon Dioxide (22-30) mmol/L BUN (9-20) mg/dL Glucose (74-99) mg/dL POC Glucose (mg/dL) 152 H 199 H 135 H (75-99) mg/dL 12/10/21 12/10/21 Range/Units 11:01 11:42 Carbon Dioxide 34 H (22-30) mmol/L BUN 27 H (9-20) mg/dL Glucose 201 H (74-99) mg/dL POC Glucose (mg/dL) 154 H (75-99) mg/dL
[2021-12-10 16:49] LABS: Glucose,Whole Blood 180 mg/dL (75-99)
[2021-12-10 20:07] LABS: Glucose,Whole Blood 98 mg/dL (75-99)
[2021-12-10] MEDS: QUEtiapine 200 MG TAB PO SCH (21:13)
[2021-12-11] MEDS: methylPREDNISolone SOD SUCCI 125 MG/2 ML VIAL IV SCH ×2 (01:19→08:52)
[2021-12-11 06:09] LABS: Glucose,Whole Blood 127 mg/dL (75-99)
[2021-12-11] MEDS: INSULIN ASPART (NovoLOG) 100 UNIT/ML VIAL SQ SCH ×2 (06:37→12:37)
[2021-12-11] MEDS: LORazepam 1 MG TAB PO PRN ×2 (06:38→13:10)
[2021-12-11 07:09] VITALS: RESP 18
[2021-12-11 08:21] LABS: African American GFR (CKD) >90 (>60 ml/min/1.73 sqM); Anion Gap 3 mmol/L; Blood Urea Nitrogen 26 mg/dL (9-20); Calcium 8.2 mg/dL (8.4-10.2); Carbon Dioxide 36 mmol/L (22-30); Chloride 96 mmol/L (98-107); Glucose 128 mg/dL (74-99); Non-African American GFR(CKD) >90 (>60 ml/min/1.73 sqM); Potassium 4.3 mmol/L (3.5-5.1); Sodium 135 mmol/L (137-145)
--- NOTE | 2021-12-11 08:22 | ECHOF ---
Referral Reason:CHF MEASUREMENTS -------- HEIGHT: 182.9 cm WEIGHT: 110.2 kg BP: IVSd: 1.4 cm (0.6 - 1.1) LVIDd: 4.4 cm (3.9 - 5.3) LVPWd: 1.5 cm (0.6 - 1.1) EDV(Teich): 86 ml IVSs: 2.3 cm LVIDs: 1.4 cm LVPWs: 2.0 cm %IVS Thck: 66 % ESV(Teich): 5 ml EF(Teich): 95 % %FS: 69 % SV(Teich): 81 ml RVIDd: 4.1 cm (< 3.3) Ao Diam: 3.2 cm (2.0 - 3.7) LA Diam: 4.3 cm (2.7 - 3.8) AV Cusp: 2.1 cm (1.5 - 2.6) EPSS: 1.0 cm MV E Noel: 1.07 m/s MV DecT: 205 ms MV Dec [place]: 5.2 m/s MV A Noel: 1.00 m/s MV E/A Ratio: 1.07 MV PHT: 59 ms MR Vmax: 1.29 m/s MR maxP.68 mmHg LVOT Vmax: 1.17 m/s LVOT maxP.45 mmHg AV Vmax: 1.56 m/s AV maxP.73 mmHg TR Vmax: 1.58 m/s TR maxP.95 mmHg RAP: 5.00 mmHg RVSP: 14.95 mmHg MV EF SLOPE: 155.52 mm/s (70 - 150) MV EXCURSION: 14.32 mm (> 18.000) FINDINGS -------- This was a technically difficult study with suboptimal views. The left ventricular size is normal. There is moderate concentric left ventricular hypertrophy. O verall left ventricular systolic function is normal with, an EF between 55 - 60 %. The right ventricle is severely enlarged. The left atrial size is normal. The right atrium was not well visualized. Lumason used The aortic valve was not well visualized. The mitral valve leaflets are mildly thickened. Mild mitral regurgitation is present. The tricuspid valve appears structurally normal. Mild tricuspid regurgitation present. Right vent ricular systolic pressure is normal at < 35 mmHg. The pulmonic valve was not well visualized. The aortic root size is normal. IVC Not well visulized. There is no pericardial effusion. CONCLUSIONS -------- 1. The left ventricular size is normal. 2. There is moderate concentric left ventricular hypertrophy. 3. Overall left ventricular systolic function is normal with, an EF between 55 - 60 %. 4. The right ventricle is severely enlarged. 5. The mitral valve leaflets are mildly thickened. 6. Mild mitral regurgitation is present. 7. Mild tricuspid regurgitation present. 8. There is no pericardial effusion. SPOT CHECKER: Lourdes Mao RDCS
[2021-12-11] MEDS: FORMOTEROL FUMARATE 20 MCG/2 ML NEBU INHALATION SCH (08:36)
[2021-12-11] MEDS: BUDESONIDE 1 MG/2 ML NEBU INHALATION SCH (08:37)
[2021-12-11] MEDS: IPRATROPIUM-ALBUTEROL 3 ML NEB INHALATION SCH ×3 (08:37→16:27)
[2021-12-11] MEDS: ASPIRIN 81 MG PO SCH (08:54)
[2021-12-11] MEDS: ATORVASTATIN 40 MG TAB PO SCH (08:54)
[2021-12-11] MEDS: FUROSEMIDE 10 MG/ML 4 ML VIAL IV SCH (08:55)
[2021-12-11] MEDS: cloNIDine HCL 0.1 MG TAB PO SCH (08:55)
[2021-12-11] MEDS: ISOSORBIDE MONONITRATE ER 30 MG TAB.ER.24H PO SCH (08:56)
[2021-12-11] MEDS: lisinopriL 20 MG TAB PO SCH (08:56)
[2021-12-11] MEDS: METOPROLOL TARTRATE 12.5 MG TAB PO SCH (08:56)
[2021-12-11] MEDS: NICOTINE 14MG/24HR PATCH TRANSDERM SCH (08:56)
[2021-12-11] MEDS: GABAPENTIN 300 MG CAP PO SCH (08:56)
[2021-12-11] MEDS: TAMSULOSIN 0.4 MG CAP.ER.24H PO SCH (08:57)
[2021-12-11] MEDS: Buprenorphine Hcl/Naloxone Hcl [Suboxone 8 Mg-2 Mg Sl Film] 1 EACH Fil SUBLINGUAL SCH (10:35)
[2021-12-11] MEDS: CHLORHEXIDINE GLUCONATE 15 ML CUP MUCOUS MEM SCH (10:35)
[2021-12-11 11:09] VITALS: BP 123/72; PULSE 66; TEMP 97.7
[2021-12-11 11:38] LABS: Glucose,Whole Blood 125 mg/dL (75-99)
--- NOTE | 2021-12-11 11:47 | P.PN ---
Subjective Progress Note Date: 12/11/21 This is a 55-year-old male patient with a known history of coronary artery disease with previous stent placements, chronic and ongoing tobacco dependence, chronic obstructive pulmonary disease, hypertension, diabetes mellitus, brain aneurysm with repair, polysubstance abuse, chronic pain syndrome, anxiety. He was taken to [facility] for acute hypoxemic respiratory failure was intubated there and subsequently transferred here for further management. He is seen today in consultation in the intensive care unit. He was intubated yesterday 12/06/2021. He is currently on settings of assist control mode with a rate of 24, tidal volume 450, FiO2 50% and a PEEP of 5. Morning blood gases revealed a PaO2 of 62, pCO2 49, pH 7.52. He is sedated on propofol 50 mcg/kg/m. He is on Versed at 1 mg per hour. Normal saline at KVO. Chest x-ray reveals moderate diffuse interstitial opacity opacities recommending mild interstitial edema. No evidence of pneumothorax or large pleural effusions. Endotracheal tube 9 cm above the vinit[place] that has been repositioned. Sputum culture pending. White count 6.3. Hemoglobin 15.2. Sodium 135. Potassium 4.2. Bicarb 36. BUN 1317. Creatinine 0.68. He's been initiated on DuoNeb inhalations, Pulmicort and Perforomist inhalations, IV Solu-Medrol. The patient is seen today 12/08/2021 in follow-up in the intensive care unit. He is successfully extubated yesterday. He is currently awake and alert in no acute distress. Maintaining good O2 saturations in the 90s on 5 L high flow nasal cannula. His normal saline and 20 ML's per hour. His x-ray shows decreased pulmonary vascular congestion and interstitial edema. No pneumothorax. Sputum culture pending. White count 5.8. Hemoglobin 14.6. Platelet count 198. Sodium 135. Potassium 4.6. Bicarb 37. BUN 19. Creatinine 0.73. He remains on DuoNeb inhalations, Pulmicort and Perforomist inhalations, IV Solu-Medrol. Oral diuretics. Currently in a -197 ml balance. On 12/09/2021, the patient is still having some shortness of breath and chest discomfort. The patient has recovered some acute COPD exacerbation respiratory failure the patient was extubated and the patient is being considered for cardiac catheterization. The patient is known to have CAD and previous history of coronary stenting and EKG showed abnormalities with T-wave inversion along the anterior leads concerning of an anterior wall ischemia. Based on that, cardiac milling planer operator advised cardiac catheterization. Noted the patient had a white cell count of 4.4 with hemoglobin 14.3 and a platelet of 162. BUN with a 20 with a creatinine of 0.6. The cardiac catheterization was completed and the patient was found to have a patent stent in the LAD and RCA. There was mild diffuse disease involving 3 vessels without any critical lesions except ostium of the second diagonal which involved a 90% stenosis. This was reviewed by interventional radiology and the recommendation was maximal medical treatment. For now, the patient remains on DuoNeb nebulized treatments around the clock. The patient is also receiving Pulmicort Respules and he remains on IV Solu Medrol 60 mg every 8 hours. He is on a nicotine patch. Lasix and a dose of 20 mg by mouth once a day. He is on oral aspirin 81 mg by mouth daily. He is on IV heparin per protocol. He is also on metoprolol 12.5 mg by mouth twice a day. 12/10/2021, I'm seeing the patient for a follow-up. The patient has no chest pain. The patient is still bronchus spastic and wheezy regarding his underlying COPD exacerbation. He remains on IV Solu-Medrol. He is also receiving DuoNeb nebulized treatments around the clock. Nopalpitations. No cardiac arr hythmias.no other complaints otherwise for now.other new complaints otherwise for now. The renal function is stable at creatinine of 0.7. Patient's sodium level is at 138 with a potassium level of 4.5. Cardiac catheterization was completed yesterday and the results were noted. On 12/11/2021 patient seen in follow-up on selective care unit, he continues to improve, no worsening dyspnea, no wheezing, no cough, vital signs are stable, room air pulse ox is 92 percent, hemodynamically stable, no fever or chills, no acute events overnight. Patient already has home oxygen at home. he does not h ave nebulized treatments at home and this will be arranged today before he goes home. Patient has not had any chest pain episodes. Objective - Vital Signs Vital signs: Vital Signs Temp 97.7 F 12/11/21 11:07 Pulse 66 12/11/21 11:07 Resp 18 12/11/21 11:07 BP 123/72 12/11/21 11:07 Pulse Ox 92 L 12/11/21 11:07 Intake & Output 12/10/21 12/11/21 12/11/21 18:59 06:59 18:59 Intake Total 620 20 750 Balance 620 20 750 Intake: IV 20 20 Invasive Line 1 10 Invasive Line 2 20 10 Oral 600 750 Other: Voiding Method Toilet Toilet Urinal Urinal # Voids 2 - Exam GENERAL EXAM: Alert, very pleasant, 65-year-old white male, intubated of oxygen with pulse ox of 92%, sitting up in the recliner, comfortable in no apparent distress. HEAD: Normocephalic/atraumatic. EYES: Normal reaction of pupils, equal size. Conjunctiva pink, sclera white. NOSE: Clear with pink turbinates. THROAT: No erythema or exudates. NECK: No masses, no JVD, no thyroid enlargement, no adenopathy. CHEST: No chest wall deformity. Symmetrical expansion. LUNGS: Equal air entry with no crackles, wheeze, rhonchi or dullness. CVS: Regular rate and rhythm, normal S1 and S2, no gallops, no murmurs, no rubs ABDOMEN: Soft, nontender. No hepatosplenomegaly, normal bowel sounds, no guarding or rigidity. EXTREMITIES: No clubbing, no edema, no cyanosis, 2+ pulses and upper and lower extremities. MUSCULOSKELETAL: Muscle strength and tone normal. SPINE: No scoliosis or deformity SKIN: No rashes CENTRAL NERVOUS SYSTEM: Alert and oriented -3. No focal deficits, tone is normal in all 4 extremities. PSYCHIATRIC: Alert and oriented -3. Appropriate affect. Intact judgment and insight. - Labs CBC & Chem 7: 12/09/21 03:22 12/11/21 07:09 Labs: Abnormal Lab Results - Last 24 Hours (Table) 12/10/21 12/10/21 12/11/21 Range/Units 11:42 16:48 06:06 Sodium (137-145) mmol/L Chloride (98-107) mmol/L Carbon Dioxide (22-30) mmol/L BUN (9-20) mg/dL Glucose (74-99) mg/dL POC Glucose (mg/dL) 154 H 180 H 127 H (75-99) mg/dL Calcium (8.4-10.2) mg/dL 12/11/21 Range/Units 07:09 Sodium 135 L (137-145) mmol/L Chloride 96 L (98-107) mmol/L Carbon Dioxide 36 H (22-30) mmol/L BUN 26 H (9-20) mg/dL Glucose 128 H (74-99) mg/dL POC Glucose (mg/dL) (75-99) mg/dL Calcium 8.2 L (8.4-10.2) mg/dL Assessment and Plan Plan: Assessment: #1. Acute hypoxic respiratory failure secondary to acute exacerbation of COPD, requiring intubation and mechanical support. Patient was intubated at an outside hospital on 12/06/2021, successfully weaned and extubated, and tolerating extubation quite well so far. #2. Chronic hypoxic respiratory failure related to chronic obstructive pulmonary disease, wears 2 L of oxygen on a regular basis #3. Nicotine dependence, chronic and ongoing, carries [id number] smoking history #4. Coronary artery disease with previous stent placement, patient underwent a cardiac catheterization and patient was found to have a patent stent to the LAD and RCA, and patient had some mild diffuse disease and a 90% diagonal lesion that was not amenable for any intervention #5. Hypertension #6. Hyperlipidemia #7. History of polysubstance abuse #8. Chronic pain syndrome #9. Anxiety Plan: Acute events overnight Continues to improve No worsening dyspnea, wheezing or congestion Vital signs have been stable Currently down to 2 L Normally wears 2 L of oxygen at home on a regular basis Patient is stable for discharge home from pulmonary perspective to complete prednisone taper He can resume Breztri inhaler, Recommend nebulized albuterol 4 times daily and as needed for shortness of breath Prescription was given to discharge planning and prescription for albuterol has been sent to patient's pharmacy Cardiac meds per cardiology Smoking cessation was strongly recommended Outpatient follow-up with Dr. Thomson in the office in one week I have personally seen and examined the patient, performed the documentation and the assessment and plan as written. Number of minutes spent on the visit: [10] Time with Patient: Less than 30 (I have personally seen and examined the patient and reviewed the documentation. I performed a joint evaluation with the nurse practitioner in this evaluation was done more than 20 minutes. I fully agree with the documentation above and the plan of care.)
--- NOTE | 2021-12-11 12:43 | P.PN ---
Subjective This is a pleasant 55-year-old male past medical history significant for coronary artery disease s/p prior PIC LAD and RCA, COPD, diabetes mellitus, hypertension, dyslipidemia, history of brain aneurysm and chronic nicotine dependence. He follows in the office with Dr. Sheikh. Patient presents to the hospital shortness of breath and cardiology was consulted for chest discomfort. Patient underwent cardiac catheterization with Dr. Sheikh on 12/09/2021 which revealed patent stents in the LAD and the right coronary artery. Mild diffuse disease involving all 3 vessels without any critical lesions except ostium of the second diagonal, which has about 90% stenosis. Films reviewed with intervention is, Dr. Leon recommended maximum medical therapy. Patient seen and examined at bedside, no acute distress. He denies any further chest discomfort. He denies any shortness of breath. Patient is hemodynamically stable. Echocardiogram pending EF 5560 percent, mild mitral regurgitation, mild tricuspid regurgitation. GENERAL: Well-appearing, well-nourished and in no acute distress. NECK: Supple without JVD or thyromegaly. LUNGS: Breath sounds bilateral wheezing mild noted to auscultation bilaterally. Respiration equal and unlabored. No wheezes, rales or rhonchi. HEART: Regular rate and rhythm without murmurs, rubs or gallops. S1 and S2 heard. EXTREMITIES: Normal range of motion, 1+ bilateral lower extremity edema. No clubbing or cyanosis. Peripheral pulses intact. SKIN right radial cath site clean dry intact 2+ pulses no hematoma ASSESSMENT Acute coronary syndrome/acute non-ST deviation myocardial infarction s/p cardiac cath 12/09/2021 Coronary artery disease s/p prior PIC LAD and RCA COPD Type 2 diabetes mellitus Hypertension Dyslipidemia History of brain aneurysm Chronic nicotine dependence PLAN Transition to PO lasix 40mg daily Continue Imdur Continue lisinopril and beta jose Continue aspirin, statin, clonidine From cardiology perspective, patient stable to be discharged home. Follow-up with Dr. Sheikh in the office in one week. Nurse Practitioner note has been reviewed, I agree with a documented findings and plan of care. Patient was seen and examined. Objective - Vital Signs Vital signs: Vital Signs Temp 97.7 F 12/11/21 11:07 Pulse 66 12/11/21 11:07 Resp 18 12/11/21 11:07 BP 123/72 12/11/21 11:07 Pulse Ox 92 L 12/11/21 11:07 Intake & Output 12/10/21 12/11/21 12/11/21 18:59 06:59 18:59 Intake Total 620 20 750 Balance 620 20 750 Intake: IV 20 20 Invasive Line 1 10 Invasive Line 2 20 10 Oral 600 750 Other: Voiding Method Toilet Toilet Toilet Urinal Urinal # Voids 2 - Labs CBC & Chem 7: 12/09/21 03:22 12/11/21 07:09 Labs: Abnormal Lab Results - Last 24 Hours (Table) 12/10/21 12/11/21 12/11/21 Range/Units 16:48 06:06 07:09 Sodium 135 L (137-145) mmol/L Chloride 96 L (98-107) mmol/L Carbon Dioxide 36 H (22-30) mmol/L BUN 26 H (9-20) mg/dL Glucose 128 H (74-99) mg/dL POC Glucose (mg/dL) 180 H 127 H (75-99) mg/dL Calcium 8.2 L (8.4-10.2) mg/dL 12/11/21 Range/Units 11:37 Sodium (137-145) mmol/L Chloride (98-107) mmol/L Carbon Dioxide (22-30) mmol/L BUN (9-20) mg/dL Glucose (74-99) mg/dL POC Glucose (mg/dL) 125 H (75-99) mg/dL Calcium (8.4-10.2) mg/dL
--- NOTE | 2021-12-11 14:26 | P.DS ---
Providers Date of admission: 12/07/21 01:00 Expected date of discharge: 12/11/21 Attending physician: Marco Garcia MD Consults: 12/07/21 01:00 Consult Physician Routine Consulting Provider: Jasmeet Thomson Consult Reason/Comments: icu Do you want consulting provider notified?: Yes 12/08/21 14:46 Consult Physician Routine Consulting Provider: Chinmay Stern Consult Reason/Comments: CHF/chest pain Do you want consulting provider notified?: Yes Primary care physician: Stated None Hospital Course: Patient is a 55-year-old male with a PMH of COPD and hypertension who was sent in from [facility] where the patient presented earlier today at 4 PM for shortness of breath. The patient was intubated at the time of evaluation and thereby history obtained from the chart. TThe patient was noted to have a mild fever of 100.6F on presentation with ABG showing significant hypercapnia with pCO2 101. The patient was initially placed on a nonrebreather mask without im provement and was subsequently intubated and was sent to the [facility] emergency room. Laboratory evaluation from [facility] was reviewed with influenza and COVID 19 testing negative, sodium 136, potassium 4.9, chloride 89, CO2 42, BUN 11.5, creatinine 0.65, troponin I 0.02, AST 38, ALT 28, alk phos 98, total bilirubin 1.4, lactate 1.35, WBC count 11.7, hemoglobin 15, and platelets 210. EKG revealed sinus tachycardia at 117 bpm. He was successfully extubated on 12/07 to 6L NC. Pt noted to have hx of CAD and elevated troponin, and was taken to the labels molder on 12/09, which demonstrated patent stents, and mild diffuse disease in all 3 vessels, as well as 90% stenosis of the second diagonal. For his COPD exacerbation, patient was treated with nebulizers, steroids, but if discharged improved back to his home oxygen requirement of 2 L. He was able to ambulate without dyspnea on exertion. Patient was discharged home with new prescription for nebulizer machine. #Acute hypoxemic respiratory failure #Acute exacerbation of chronic obstructive pulmonary disease. -Nebulizer machine prescribed on discharge -Nebulized albuterol prescribed on discharge -Continued patient's home Breztri -Prednisone 40 mg prescribed for an additional 5 days #Ongoing tobacco abuse -patient was counseled extensively regarding smoking cessation #Acute diastolic CHF exacerbation -Check 2-D echo, EF is 55-60%, severe right ventricular enlargement, no wall motion abnormality -Increased home dose Lasix from 20 mg daily to 40 mg daily -Resumed FLORENTIN inhibitor at home dose #Coronary artery disease with previous stent placements #NSTEMI -Started on aspirin, Imdur, statin, metoprolol #Hypertension -Resumed home clonidine -Resume home FLORENTIN inhibitor -Addition of Imdur and metoprolol as above #Hyperlipidemia. -statin started #History of polysubstance abuse #Chronic pain syndrome. #Bipolar disorder #BPH -No changes made to home medication I spent 40 minutes coordinating this patient's complex discharge Gen: awake, alert HEENT: normocephalic, atraumatic, good hearing acuity, moist mucous membranes Resp: good air exchange, breathing comfortably with no accessory muscle use CVS: good distal perfusion x 4, GI: soft, NTTP, ND : no SPT, no CVAT, terrell catheter not present MSK: no pitting edema, no clubbing Neuro: non-focal, moving all extremities Psych: cooperative, euthymic mood Patient Condition at Discharge: Good Plan - Discharge Summary Discharge Rx Participant: Yes New Discharge Prescriptions: New Aspirin 81 mg PO DAILY #30 tab predniSONE [Deltasone] 40 mg PO DAILY 5 Days #10 tab Isosorbide Mononitrate ER [Imdur] 30 mg PO DAILY #30 tablet Atorvastatin [Lipitor] 40 mg PO DAILY #30 tab Metoprolol Tartrate [Lopressor] 12.5 mg PO BID #60 tab Albuterol Nebulized [Ventolin Nebulized] 2.5 mg INHALATION Q6H 30 Days #6 pack Continue Tamsulosin [Flomax] 0.4 mg PO DAILY Buprenorphine HCl/Naloxone HCl [Suboxone 4 mg-1 mg Sl Film] 1 film SL DAILY@1400 Vilazodone HCl [Viibryd] 20 mg PO DAILY Lisdexamfetamine Dimesylate [Vyvanse] 60 mg PO DAILY lisinopriL 40 mg PO DAILY cloNIDine HCL [Catapres] 0.1 mg PO TID QUEtiapine [SEROquel] 200 mg PO HS LORazepam [Ativan] 1 mg PO TID PRN PRN Reason: Anxiety Buprenorphine HCl/Naloxone HCl [Suboxone 8 mg-2 mg Sl Film] 1 film SL BID@799,1999 Albuterol Inhaler [Ventolin Hfa Inhaler] 2 puff INHALATION RT-Q4H PRN PRN Reason: Shortness Of Breath Budesonide/Glycopyr/Formoterol [Breztri Aerosphere Inhaler] 2 puff INHALATION RT-BID Gabapentin [Neurontin] 300 mg PO TID Changed Furosemide [Lasix] 40 mg PO DAILY #60 tab Discharge Medication List Albuterol Inhaler [Ventolin Hfa Inhaler] 2 puff INHALATION RT-Q4H PRN 03/13/21 [History] Buprenorphine HCl/Naloxone HCl [Suboxone 8 mg-2 mg Sl Film] 1 film SL BID@0800,199903/13/21 [History] LORazepam [Ativan] 1 mg PO TID PRN 03/13/21 [History] Lisdexamfetamine Dimesylate [Vyvanse] 60 mg PO DAILY 03/13/21 [History] QUEtiapine [SEROquel] 200 mg PO HS 03/13/21 [History] Tamsulosin [Flomax] 0.4 mg PO DAILY 03/13/21 [History] Vilazodone HCl [Viibryd] 20 mg PO DAILY 03/13/21 [History] cloNIDine HCL [Catapres] 0.1 mg PO TID 03/13/21 [History] lisinopriL 40 mg PO DAILY 03/13/21 [History] Budesonide/Glycopyr/Formoterol [Breztri Aerosphere Inhaler] 2 puff INHALATION RT-BID 12/07/21 [History] Buprenorphine HCl/Naloxone HCl [Suboxone 4 mg-1 mg Sl Film] 1 film SL DAILY@1400 12/07/21 [History] Gabapentin [Neurontin] 300 mg PO TID 12/07/21 [History] Albuterol Nebulized [Ventolin Nebulized] 2.5 mg INHALATION Q6H 30 Days #6 pack 12/11/21 [Rx] Aspirin 81 mg PO DAILY #30 tab 12/11/21 [Rx] Atorvastatin [Lipitor] 40 mg PO DAILY #30 tab 12/11/21 [Rx] Furosemide [Lasix] 40 mg PO DAILY #60 tab 12/11/21 [Rx] Isosorbide Mononitrate ER [Imdur] 30 mg PO DAILY #30 tablet 12/11/21 [Rx] Metoprolol Tartrate [Lopressor] 12.5 mg PO BID #60 tab 12/11/21 [Rx] predniSONE [Deltasone] 40 mg PO DAILY 5 Days #10 tab 12/11/21 [Rx] Follow up Appointment(s)/Referral(s): [facility] [NON-STAFF] - None,Stated [Primary Care Provider] - 1-2 days Laura Sheikh MD [STAFF PHYSICIAN] - 12/16/21 3:15 pm ([address] [place]. In front of [place]. ) Jasmeet Thomson MD [STAFF PHYSICIAN] - 1 Week Patient Instructions/Handouts: COPD (Chronic Obstructive Pulmonary Disease) (DC), After Radial Heart Catheterization (GEN) Activity/Diet/Wound Care/Special Instructions: Patient needs nebulizer at time of discharge to manage COPD Discharge Disposition: HOME SELF-CARE
[2021-12-11] MEDS ORDERED: methylPREDNISolone SOD SUCCI 125 MG/2 ML VIAL IV SCH (16:00)
[2021-12-12] MEDS ORDERED: FUROSEMIDE 40 MG TAB PO SCH (09:00)
--- NOTE | 2021-12-12 11:34 | CDI ---
Documentation Clarification Form Date: 12/12/2021 11:24:32 AM From: Gautam Garcia Admit Date: 12/07/2021 01:00:00 AM Patient Name: Andre Garcia Visit Number: [id number] Discharge Date: 12/11/2021 04:35:00 PM ATTENTION: The Clinical Documentation Specialists (CDI) and [facility] Coding Staff appreciate your assistance in clarifying documentation. Please respond to the clarification below the line at the bottom and electronically sign. The CDI & [facility] Coding staff will review the response and follow-up if needed. Please note: Queries are made part of the Legal Health Record. If you have any questions, please contact the author of this message via ITS. Dr. Lauro Norman NSTEMI is documented in progress note . For each diagnosis, documentation must be clear to determine if the condition was present at the time of the patients inpatient admission or developed during the hospital stay. Additional clarification regarding the NSTEMI is requested. Admitted 12/07/21. Chest pain reported 12/08/21. History/Risk Factors: CAD, COPD exacerbation, acute respiratory failure Clinical Indicators: chest pain per progress note 12/08/21. Troponins: 12/07-.02, 12/09-.095. Treatment: L heart cath, IV steroids Definition of Present on Admission (POA): A diagnosis present at the time the order for admission to inpatient status was written. Please clarify if the NSTEMI was POA [x] Y = Yes, the condition was present at the time of the order for inpatient admission. [ ] N = No, the condition was not present at the time of the order for inpatient admission. [ ] W = Clinically undetermined if the condition was present at the time of the order for inpatient admission. MTDD
== END 2021-12-11 16:35 | disposition home or self-care (01) | DRG 280 ==
LOC: EC 23:09 → 2SICU 12-07 01:00 → 4SSUR 12-08 12:06 → 3SCARD 12-08 18:35
PROVIDERS: ADMIT Internal Medicine; ATTEND Internal Medicine
PROC: 5A1935Z Respiratory Ventilation, Less than 24 Consecutive Hours (ICD-10-PCS; 2021-12-07)
PROC: 5A0945A Assistance with Respiratory Ventilation, 24-96 Consecutive Hours, High Flow/Velocity Cannula (ICD-10-PCS; 2021-12-08)
PROC: B2111ZZ Fluoroscopy of Multiple Coronary Arteries using Low Osmolar Contrast (ICD-10-PCS; 2021-12-09)
PROC: 4A023N7 Measurement of Cardiac Sampling and Pressure, Left Heart, Percutaneous Approach (ICD-10-PCS; principal; 2021-12-09 15:00)
DX: I21.4 Non-ST elevation (NSTEMI) myocardial infarction (principal); I50.33 Acute on chronic diastolic (congestive) heart failure; J96.01 Acute respiratory failure with hypoxia; J44.1 Chronic obstructive pulmonary disease with (acute) exacerbation; I11.0 Hypertensive heart disease with heart failure; E11.9 Type 2 diabetes mellitus without complications; E78.5 Hyperlipidemia, unspecified; F17.200 Nicotine dependence, unspecified, uncomplicated; F31.9 Bipolar disorder, unspecified; F41.9 Anxiety disorder, unspecified; G89.4 Chronic pain syndrome; I25.10 Atherosclerotic heart disease of native coronary artery without angina pectoris; I25.2 Old myocardial infarction; F19.10 Other psychoactive substance abuse, uncomplicated; N40.0 Benign prostatic hyperplasia without lower urinary tract symptoms; Z20.822 Contact with and (suspected) exposure to COVID-19; Z79.82 Long term (current) use of aspirin; Z79.899 Other long term (current) drug therapy; Z83.3 Family history of diabetes mellitus; Z95.5 Presence of coronary angioplasty implant and graft
CPT/HCPCS: 31500; 36600; 71045; 80048; 80053; 80061; 81001; 82805; 83036; 83605; 83735; 83880; 84100; 84439; 84443; 84484; 85025; 85027; 85610; 85730; 87070; 87205; 93005; 93306; 93458; 94002; 94003; 94640; 94760; 99285

== ENCOUNTER 2023-02-01 12:41 | Inpatient (IN) | payer MEDICARE, OTHER ==
[2023-02-01] MEDS ORDERED: HEPARIN SODIUM 1,000 UN/ML (10ML VL) IV ONE (12:57)
[2023-02-01] MEDS ORDERED: HEPARIN SODIUM 1,000 UN/ML (10ML VL) IV PRN (12:57)
[2023-02-01] MEDS ORDERED: LORazepam 2 MG/ML INJ IV STA (12:57)
[2023-02-01 13:07] LABS: VBG PH 7.31 (7.31-7.41)
[2023-02-01 13:08] LABS: Basophils % (A) 0 %; Eosinophils # (A) 0.1 k/uL (0-0.7); Eosinophils % (A) 1 %; HCT 46.4 % (39.0-53.0); HGB 13.7 gm/dL (13.0-17.5); Hypochromasia Marked; Lymphocytes # (A) 0.3 k/uL (1.0-4.8); Lymphocytes % (A) 3 %; MCH 30.1 pg (25.0-35.0); MCHC 29.5 g/dL (31.0-37.0); Macrocytosis Slight; Mean Platelet Volume 8.3; Monocytes # (A) 0.1 k/uL (0-1.0); Monocytes % (A) 1 %; Neutrophils # (A) 9.9 k/uL (1.3-7.7); Neutrophils % (A) 95 %; Platelet Count 202 k/uL (150-450); RBC 4.55 m/uL (4.30-5.90); RDW 14.5 % (11.5-15.5); WBC 10.5 k/uL (3.8-10.6)
[2023-02-01] MEDS: methylPREDNISolone SOD SUCCI 125 MG/2 ML VIAL IV SCH (13:09)
[2023-02-01] MEDS: DILTIAZEM 125 MG in SODIUM CHLORIDE 0.9% 100 ML IV SCH ×2 (13:09→23:00)
--- NOTE | 2023-02-01 13:09 | ED ---
General Adult HPI - General Chief complaint: Shortness of Breath Stated complaint: SOB Time Seen by Provider: 02/01/23 12:46 Source: patient, EMS, RN notes reviewed, old records reviewed Mode of arrival: EMS Limitations: no limitations - History of Present Illness Initial comments: 57-year-old male presenting from outside hospital with respiratory failure and new onset atrial flutter. Patient had been seen and was hypoxic and hypercapnic. He has a history of oxygen dependent COPD. He was seen at outside hospital 5 days ago and had left AGAINST MEDICAL ADVICE. He returned today with worsening dyspnea and hypoxia. Patient was placed on BiPAP, have full laboratory testing and chest CT as well as multiple medications including antibiotics and AV node blockers for his new diagnosis of atrial flutter. He was sent to this institution for further evaluation and treatment. Patient denies fever. He denies central chest pain. Denies lower extremity pain or swelling. - Related Data Home Medications Medication Instructions Recorded Confirmed Albuterol Inhaler [Ventolin Hfa 2 puff INHALATION RT-Q4H PRN 03/13/21 12/07/21 Inhaler] Buprenorphine HCl/Naloxone HCl 1 film SL BID@0800,2000 03/13/21 12/07/21 [Suboxone 8 mg-2 mg Sl Film] LORazepam [Ativan] 1 mg PO TID PRN 03/13/21 12/07/21 Lisdexamfetamine Dimesylate 60 mg PO DAILY 03/13/21 12/07/21 [Vyvanse] QUEtiapine [SEROquel] 200 mg PO HS 03/13/21 12/07/21 Tamsulosin [Flomax] 0.4 mg PO DAILY 03/13/21 12/07/21 Vilazodone HCl [Viibryd] 20 mg PO DAILY 03/13/21 12/07/21 cloNIDine HCL [Catapres] 0.1 mg PO TID 03/13/21 12/07/21 lisinopriL 40 mg PO DAILY 03/13/21 12/07/21 Budesonide/Glycopyr/Formoterol 2 puff INHALATION RT-BID 12/07/21 12/07/21 [Breztri Aerosphere Inhaler] Buprenorphine HCl/Naloxone HCl 1 film SL DAILY@1400 12/07/21 12/07/21 [Suboxone 4 mg-1 mg Sl Film] Gabapentin [Neurontin] 300 mg PO TID 12/07/21 12/07/21 Previous Rx's Medication Instructions Recorded Albuterol Nebulized [Ventolin 2.5 mg INHALATION Q6H 30 Days #6 12/11/21 Nebulized] pack Aspirin 81 mg PO DAILY #30 tab 12/11/21 Atorvastatin [Lipitor] 40 mg PO DAILY #30 tab 12/11/21 Furosemide [Lasix] 40 mg PO DAILY #60 tab 12/11/21 Isosorbide Mononitrate ER [Imdur] 30 mg PO DAILY #30 tablet 12/11/21 Metoprolol Tartrate [Lopressor] 12.5 mg PO BID #60 tab 12/11/21 predniSONE [Deltasone] 40 mg PO DAILY 5 Days #10 tab 12/11/21 Allergies Allergy/AdvReac Type Severity Reaction Status Date / Time No Known Allergies Allergy Verified 12/06/21 23:21 Review of Systems ROS Statement: Those systems with pertinent positive or pertinent negative responses have been documented in the HPI. ROS Other: All systems not noted in ROS Statement are negative. Past Medical History Past Medical History: Coronary Artery Disease (CAD), COPD, Diabetes Mellitus, Hyperlipidemia, Hypertension History of Any Multi-Drug Resistant Organisms: None Reported Past Surgical History: Heart Catheterization With Stent Additional Past Surgical History / Comment(s): 2 BRAIN ANERYSM, SHOULDER Past Anesthesia/Blood Transfusion Reactions: No Reported Reaction Date of Last Stent Placement:: 2014 Past Psychological History: No Psychological Hx Reported Smoking Status: Current every day smoker Past Alcohol Use History: None Reported Past Drug Use History: None Reported - Past Family History Mother Family Medical History: Cancer Father Family Medical History: Diabetes Mellitus General Exam Limitations: no limitations Course Vital Signs 02/01/23 02/01/23 02/01/23 12:42 12:50 12:52 Pulse Rate 151 H Respiratory 22 24 Rate Blood Pressure 115/94 O2 Sat by Pulse 95 Oximetry Fraction of 50 Inspired Oxygen (FIO2) 02/01/23 02/01/23 12:53 13:30 Pulse Rate 126 H Respiratory 22 Rate Blood Pressure 118/73 O2 Sat by Pulse 92 L Oximetry Fraction of 50 Inspired Oxygen (FIO2) - Reevaluation(s) Reevaluation #1: 02/01/23 13:07 Patient had a white blood cell count of 11.5, hemoglobin of 13.3, normal sodium, normal potassium. Elevated CO2 on BMP of 46 and an elevated CO2 on gas of 107. His d-dimer was 0.56. His BNP was 1600. He had a negative troponin, negative covert test and a CT which is negative for focal pneumonia or acute findings. This was performed without contrast. A sick laboratory tests and venous gas will be repeated at this time, results pending EKG Findings - EKG Comments: EKG Findings:: EKG: Atrial flutter with variable AV block rate of 134, QRS duration 70, QTC 374, no ST segment elevation Medical Decision Making - Medical Decision Making Was pt. sent in by a medical professional or institution (, PA, FLIGHT COORDINATOR, urgent care, hospital, or assisted...) When possible be specific @ transferred from [facility] Did you speak to anyone other than the patient for history (EMS, parent, family, police, friend...)? What history was obtained from this source @ -[No] Did you review nursing and triage notes (agree or disagree)? Why? @ -[I reviewed and agree with nursing and triage notes] Were old charts reviewed (outside hosp., previous admission, EMS record, old EKG, old radiological studies, urgent care reports/EKG's, assisted records)? Report findings @ -Previous admission notes Differential Diagnosis (chest pain, altered mental status, abdominal pain women, abdominal pain men, vaginal bleeding, weakness, fever, dyspnea, syncope, headache, dizziness, GI bleed, back pain, seizure, CVA, palpatations, mental health, musculoskeletal)? Differential Dyspnea: Coronary syndrome, arrhythmia, tamponade, asthma, COPD, pulmonary embolism, pneumonia, pneumothorax, pulmonary effusion, anaphylaxis, diabetic ketoacidosis, flailed chest, pulmonary contusion, diaphragmatic rupture, anemia, neuromuscular, this is not meant to be an all-inclusive list. EKG interpreted by me (3pts min.). @ -[As above] X-rays interpreted by me (1pt min.). @ -[None done] CT interpreted by me (1pt min.). @ -[None done] U/S interpreted by me (1pt. min.). @ -[None done] What testing was considered but not performed or refused? (CT, X-rays, U/S, labs)? Why? @ -[None] What meds were considered but not given or refused? Why? @ -[None] Did you discuss the management of the patient with other professionals (professionals i.e. , PA, FLIGHT COORDINATOR, lab, RT, psych nurse, psychiatric social worker supervisor, beauty artist, teacher, natural resource officer, showcase maker)? Give summary @Dr. Castaneda, [facility] Was smoking cessation discussed for >3mins.? @ -[No] Was critical care preformed (if so, how long)? @ yes Were there social determinants of health that impacted care today? How? (Homelessness, low income, unemployed, alcoholism, drug addiction, transportation, low edu. Level, literacy, decrease access to med. care, skilled nursing, rehab)? @ -[No] Was there de-escalation of care discussed even if they declined (Discuss DNR or withdrawal of care, Hospice)? DNR status @ -[No] What co-morbidities impacted this encounter? (DM, HTN, Smoking, COPD, CAD, Cancer, CVA, ARF, Chemo, Hep., AIDS, mental health diagnosis, sleep apnea, morbid obesity)? @CAD, COPD hypertension Was patient admitted / discharged? Hospital course, mention meds given and route, prescriptions, significant lab abnormalities, going to OR and other pertinent info. @57-year-old male who presents as transfer from outside hospital with hypoxic hypercapnic respiratory failure and new onset atrial flutter with rapid ventri cular response. Patient is initiated on heparin as well as continued on Cardizem with improvement and control emergency department. He'll be continued on BiPAP and treated for COPD exacerbation with respiratory failure. I discussed case with the admitting physician Dr. Elias and with the hoop maker Dr. Castaneda. He will be admitted to this institution for further management of his respiratory failure. Undiagnosed new problem with uncertain prognosis? @ -[No] Drug Therapy requiring intensive monitoring for toxicity (Heparin, Nitro, Insu robson, Cardizem)? @ -[No] Were any procedures done? @ -[No] Diagnosis/symptom? @Hypoxic hypercapnic respiratory failure, new onset atrial flutter Acute, or Chronic, or Acute on Chronic? @Acute on chronic Uncomplicated (without systemic symptoms) or Complicated (systemic symptoms)? @ -Complicated Side effects of treatment? @ -[No] Exacerbation, Progression, or Severe Exacerbation? @ -[No] Poses a threat to life or bodily function? How? (Chest pain, [place], [place], pneumonia, PE, COPD, DKA, ARF, appy, cholecystitis, CVA, Diverticulitis, Homicidal, Suicidal, threat to staff... and all critical care pts) @ Yes - Lab Data Result diagrams: 02/01/23 12:56 02/01/23 12:56 Lab Results 02/01/23 02/01/23 02/01/23 Range/Units 12:56 12:56 12:56 WBC 10.5 (3.8-10.6) k/uL RBC 4.55 (4.30-5.90) m/uL Hgb 13.7 (13.0-17.5) gm/dL Hct 46.4 (39.0-53.0) % MCV 102.0 H (80.0-100.0) fL MCH 30.1 (25.0-35.0) pg MCHC 29.5 L (31.0-37.0) g/dL RDW 14.5 (11.5-15.5) % Plt Count 202 (150-450) k/uL MPV 8.3 Neutrophils % 95 % Lymphocytes % 3 % Monocytes % 1 % Eosinophils % 1 % Basophils % 0 % Neutrophils # 9.9 H (1.3-7.7) k/uL Lymphocytes # 0.3 L (1.0-4.8) k/uL Monocytes # 0.1 (0-1.0) k/uL Eosinophils # 0.1 (0-0.7) k/uL Basophils # 0.0 (0-0.2) k/uL Hypochromasia Marked Macrocytosis Slight PT 11.9 (9.0-12.0) sec INR 1.1 (<1.2) APTT 22.7 (22.0-30.0) sec VBG pH (7.31-7.41) VBG pCO2 (37-51) mmHg VBG HCO3 (24-28) mmol/L Sodium 138 (137-145) mmol/L Potassium 4.7 (3.5-5.1) mmol/L Chloride 85 L (98-107) mmol/L Carbon Dioxide 46 H* (22-30) mmol/L Anion Gap 7 mmol/L BUN 20 (9-20) mg/dL Creatinine 0.77 (0.66-1.25) mg/dL Est GFR (CKD-EPI)AfAm >90 (>60 ml/min/1.73 sqM) Est GFR (CKD-EPI)NonAf >90 (>60 ml/min/1.73 sqM) Glucose 156 H (74-99) mg/dL Calcium 7.8 L (8.4-10.2) mg/dL Total Bilirubin 0.8 (0.2-1.3) mg/dL AST 32 (17-59) U/L ALT 54 H (4-49) U/L Alkaline Phosphatase 67 (38-126) U/L Total Protein 6.8 (6.3-8.2) g/dL Albumin 4.0 (3.5-5.0) g/dL 02/01/23 Range/Units 12:56 WBC (3.8-10.6) k/uL RBC (4.30-5.90) m/uL Hgb (13.0-17.5) gm/dL Hct (39.0-53.0) % MCV (80.0-100.0) fL MCH (25.0-35.0) pg MCHC (31.0-37.0) g/dL RDW (11.5-15.5) % Plt Count (150-450) k/uL MPV Neutrophils % % Lymphocytes % % Monocytes % % Eosinophils % % Basophils % % Neutrophils # (1.3-7.7) k/uL Lymphocytes # (1.0-4.8) k/uL Monocytes # (0-1.0) k/uL Eosinophils # (0-0.7) k/uL Basophils # (0-0.2) k/uL Hypochromasia Macrocytosis PT (9.0-12.0) sec INR (<1.2) APTT (22.0-30.0) sec VBG pH 7.31 (7.31-7.41) VBG pCO2 103 H* (37-51) mmHg VBG HCO3 50 H (24-28) mmol/L Sodium (137-145) mmol/L Potassium (3.5-5.1) mmol/L Chloride (98-107) mmol/L Carbon Dioxide (22-30) mmol/L Anion Gap mmol/L BUN (9-20) mg/dL Creatinine (0.66-1.25) mg/dL Est GFR (CKD-EPI)AfAm (>60 ml/min/1.73 sqM) Est GFR (CKD-EPI)NonAf (>60 ml/min/1.73 sqM) Glucose (74-99) mg/dL Calcium (8.4-10.2) mg/dL Total Bilirubin (0.2-1.3) mg/dL AST (17-59) U/L ALT (4-49) U/L Alkaline Phosphatase (38-126) U/L Total Protein (6.3-8.2) g/dL Albumin (3.5-5.0) g/dL Critical Care Time Critical Care Time: Yes Total Critical Care Time: 35 Disposition Clinical Impression: Acute exacerbation of chronic obstructive pulmonary disease, Acute respiratory failure, Atrial flutter with rapid ventricular response Disposition: ADMITTED IP TO THIS [facility] Condition: Serious Is patient prescribed a controlled substance at d/c from ED?: No Referrals: Marty Richard MD [Primary Care Provider] - 1-2 days Time of Disposition: 13:08
[2023-02-01] MEDS: HEPARIN SOD,PORK IN 0.45% NACL 25,000 UNIT in 0.45% NACL 1 250ML.BAG IV SCH (13:14)
[2023-02-01 13:15] LABS: ALT 54 U/L (4-49); AST 32 U/L (17-59); African American GFR (CKD) >90 (>60 ml/min/1.73 sqM); Alkaline Phosphatase 67 U/L (38-126); Blood Urea Nitrogen 20 mg/dL (9-20); Calcium 7.8 mg/dL (8.4-10.2); Chloride 85 mmol/L (98-107); Glucose 156 mg/dL (74-99); Non-African American GFR(CKD) >90 (>60 ml/min/1.73 sqM); Potassium 4.7 mmol/L (3.5-5.1); Sodium 138 mmol/L (137-145); Total Bilirubin 0.8 mg/dL (0.2-1.3); Total Protein 6.8 g/dL (6.3-8.2)
[2023-02-01 13:21] LABS: Anion Gap 7 mmol/L
[2023-02-01 13:22] LABS: Carbon Dioxide 46 mmol/L (22-30)
[2023-02-01 13:26] LABS: INR 1.1 (<1.2); Partial Thromboplastin Time 22.7 sec (22.0-30.0); Prothrombin Time 11.9 sec (9.0-12.0)
[2023-02-01] MEDS ORDERED: NALOXONE 0.4 MG/ML 1 ML VIAL IV PRN (14:08)
[2023-02-01] MEDS ORDERED: ACETAMINOPHEN TAB 325 MG TAB PO PRN (14:08)
[2023-02-01] MEDS: SODIUM CHLORIDE 0.9% 1,000 ML IV SCH (14:44)
[2023-02-01 15:02] LABS: Glucose,Whole Blood 189 mg/dL (70-110)
[2023-02-01] MEDS: IPRATROPIUM-ALBUTEROL 3 ML NEB INHALATION SCH ×3 (15:08→23:25)
[2023-02-01] MEDS ORDERED: FORMOTEROL FUMARATE 20 MCG/2 ML NEBU INHALATION SCH (16:00)
[2023-02-01] MEDS ORDERED: BUDESONIDE 1 MG/2 ML NEBU INHALATION SCH (16:00)
--- NOTE | 2023-02-01 16:05 | XR ---
EXAMINATION TYPE: XR chest 1V portable DATE OF EXAM: 02/01/2023 3:59 PM COMPARISON: Chest radiographs from 02/01/2023, CT chest 02/01/2023 TECHNIQUE: XR chest 1V portable Portable AP radiograph of the chest. CLINICAL INDICATION:Male, 57 years old with history of copd; FINDINGS: Lungs/Pleura: There is no evidence of pleural effusion, focal consolidation, or pneumothorax. Chronic senescent parenchymal change. Mild hyperinflation. Pulmonary vascularity: Unremarkable. Heart/mediastinum: Cardiomediastinal silhouette is enlarged and stable. Musculoskeletal: No acute osseous pathology. IMPRESSION: 1. No acute cardiopulmonary disease/process. 2. Cardiomegaly and mild COPD changes.
[2023-02-01] MEDS ORDERED: DEXTROSE 50% SYRINGE 50 ML IVP PRN ×2 (16:06)
[2023-02-01] MEDS ORDERED: DILTIAZEM DRIP BOLUS FROM BAG 1 MG SOLN IV ONE (16:10)
[2023-02-01 16:19] LABS: Glucose,Whole Blood 185 mg/dL (70-110)
[2023-02-01] MEDS: PIPERACILLIN-TAZOBACTAM 3.375 GM in SODIUM CHLORIDE 0.9% 100 ML IVPB SCH (16:31)
[2023-02-01] MEDS: INSULIN ASPART (NovoLOG) 100 UNIT/ML VIAL SQ SCH ×2 (16:31→20:45)
[2023-02-01] MEDS: PANTOPRAZOLE 40 MG/10 ML VIAL IVP SCH (16:31)
[2023-02-01] MEDS: LORazepam 1 MG TAB PO PRN (18:05)
[2023-02-01] MEDS: BUDESONIDE 1 MG/2 ML NEBU INHALATION SCH (20:14)
[2023-02-01] MEDS: FORMOTEROL FUMARATE 20 MCG/2 ML NEBU INHALATION SCH (20:14)
--- NOTE | 2023-02-01 20:29 | P.CONS ---
History of Present Illness - Reason for Consult Consult date: 02/01/23 Pneumonia Requesting physician: Danielle Dorman - Chief Complaint Shortness of breath x few days - History of Present Illness Patient is a 57-year-old male with a past medical history significant for COPD apparently the patient was recently admitted to the [facility] about 5 days ago and the patient left AGAINST MEDICAL ADVICE patient subsequently presenting back to the hospital with worsening shortness of breath and hypoxemia patient was noted to be in new onset atrial flutter and apparently has been tried on multiple medication without any improvement in heart rate patient was complaining of shortness of breath and has been put on the BiPAP patient did have a CT angiogram of the chest unfortunately report has not been sent with the patient this was sent patient was admitted to ICU with concern for possible pneumonia patient was started on Zosyn infectious he was consulted for further management of antibiotic therapy patient is currently on a BiPAP and elevated good historian so most information has been extracted from review the chart and talking nursing staff patient on presentation to the hospital was afebrile and no fever have been called subsequently patient is currently on repeat positive prior to sitting around 93% patient did have a normal white count kidney function has been normal and within the normal influenza RSV and COVID testing was negative patient did have a chest x-ray that was reported no acute cardiopulmonary process cardiomegaly and mild COPD changes Review of Systems Positive points has been mentioned in HPI complete review could not be obtained because of his underlying mental status Past Medical History Past Medical History: Coronary Artery Disease (CAD), COPD, Diabetes Mellitus, Hyperlipidemia, Hypertension History of Any Multi-Drug Resistant Organisms: None Reported Past Surgical History: Heart Catheterization With Stent Additional Past Surgical History / Comment(s): 2 BRAIN ANERYSM, SHOULDER Past Anesthesia/Blood Transfusion Reactions: No Reported Reaction Date of Last Stent Placement:: 2014 Past Psychological History: No Psychological Hx Reported Smoking Status: Current every day smoker Past Alcohol Use History: None Reported Past Drug Use History: None Reported - Past Family History Mother Family Medical History: Cancer Father Family Medical History: Diabetes Mellitus Medications and Allergies Home Medications Medication Instructions Recorded Confirmed Type Albuterol Inhaler [Ventolin Hfa 2 puff INHALATION RT-Q4H PRN 03/13/21 02/02/23 History Inhaler] LORazepam [Ativan] 1 mg PO TID PRN 03/13/21 02/02/23 History Tamsulosin [Flomax] 0.4 mg PO DAILY 03/13/21 02/02/23 History Vilazodone HCl [Viibryd] 20 mg PO DAILY 03/13/21 02/02/23 History Budesonide/Glycopyr/Formoterol 2 puff INHALATION RT-BID 12/07/21 02/02/23 History [Breztri Aerosphere Inhaler] Buprenorphine HCl/Naloxone HCl 1 film SL DAILY@1400 12/07/21 02/02/23 History [Suboxone 4 mg-1 mg Sl Film] Gabapentin [Neurontin] 300 mg PO TID 12/07/21 02/02/23 History Albuterol Nebulized [Ventolin 2.5 mg INHALATION Q6H 30 Days #6 12/11/21 02/02/23 Rx Nebulized] pack Aspirin 81 mg PO DAILY #30 tab 12/11/21 02/02/23 Rx Atorvastatin [Lipitor] 40 mg PO DAILY #30 tab 12/11/21 02/02/23 Rx Furosemide [Lasix] 40 mg PO DAILY #60 tab 12/11/21 02/02/23 Rx Dextroamphetamine/Amphetamine 30 mg PO BID 02/02/23 02/02/23 History [Adderall Xr 30 mg Capsule] Ipratropium/Albuter 20-100Mcg 1 - 2 puff INHALATION RT-Q4H PRN 02/02/23 02/02/23 History [Combivent Respimat 20-100Mcg Inhaler] Acetaminophen Tab [Tylenol] 650 mg PO Q6HR PRN tab 02/07/23 Rx Amiodarone [Cordarone] 200 mg PO DIRECTED #60 tab 02/07/23 Rx Apixaban [Eliquis] 5 mg PO BID #60 tab 02/07/23 Rx Metoprolol Tartrate [Lopressor] 25 mg PO BID #60 tab 02/07/23 Rx Nicotine 21Mg/24Hr Patch [Habitrol] 1 patch TRANSDERM DAILY #14 patch 02/07/23 Rx QUEtiapine [SEROquel] 100 mg PO HS #30 tab 02/07/23 Rx lisinopriL 20 mg PO HS #0 02/07/23 02/02/23 Rx predniSONE 10 mg PO DAILY #30 tab 02/07/23 Rx Allergies Allergy/AdvReac Type Severity Reaction Status Date / Time ketorolac [From Toradol] Allergy Unknown Verified 02/01/23 15:10 Physical Exam Vitals: Vital Signs Temp Pulse Resp BP Pulse Ox FiO2 02/01/23 15:24 122 H 02/01/23 15:11 108 H 50 02/01/23 15:00 97.7 F 111 H 26 H 125/99 94 L 50 02/01/23 14:56 50 02/01/23 14:00 124 H 22 118/73 96 50 02/01/23 13:30 118 H 24 115/94 91 L 50 02/01/23 13:18 156 H 22 115/94 91 L 50 02/01/23 12:53 50 02/01/23 12:52 50 02/01/23 12:50 24 02/01/23 12:42 151 H 22 115/94 95 Intake and Output 02/01/23 02/01/23 02/01/23 06:59 14:59 22:59 Intake Total 180.333 Output Total 600 Balance -419.667 Intake: IV 150 Sodium Chloride 0.9% 1, 150 000 ml @ 75 mls/hr IV . [id number] [facility] Rx#:[id number] Intake, IV Titration 30.333 Amount Diltiazem 125 mg In 30.333 Sodium Chloride 0.9% 100 ml @ 10 MG/HR 10 mls/hr IV .[id number] [facility] Rx#: [id number] Output: Urine 600 Other: # Voids 1 Weight 113.398 kg GENERAL DESCRIPTION: Middle-aged male lying in bed, no distress. No tachypnea or accessory muscle of respiration use. HEENT: Shows Pallor , no scleral icterus. Oral mucous membrane is dry. NECK: Trachea central, no thyromegaly. LUNGS: Unlabored breathing. Decreased intensity of breath sounds HEART: S1, S2, regular rate and rhythm. No loud murmur ABDOMEN: Soft, no tenderness , guarding or rigidity, no organomegaly EXTREMITIES: No edema of feet. SKIN: No rash, no masses palpable. NEUROLOGICAL: The patient is lethargic orientation could not be determined Results CBC & Chem 7: 02/06/23 03:15 02/06/23 03:15 Labs: Abnormal Lab Results - Last 24 Hours (Table) 02/01/23 02/01/23 02/01/23 Range/Units 12:56 12:56 12:56 MCV 102.0 H (80.0-100.0) fL MCHC 29.5 L (31.0-37.0) g/dL Neutrophils # 9.9 H (1.3-7.7) k/uL Lymphocytes # 0.3 L (1.0-4.8) k/uL VBG pCO2 103 H* (37-51) mmHg VBG HCO3 50 H (24-28) mmol/L Chloride 85 L (98-107) mmol/L Carbon Dioxide 46 H* (22-30) mmol/L Glucose 156 H (74-99) mg/dL POC Glucose (mg/dL) (70-110) mg/dL Calcium 7.8 L (8.4-10.2) mg/dL ALT 54 H (4-49) U/L 02/01/23 02/01/23 Range/Units 15:00 16:18 MCV (80.0-100.0) fL MCHC (31.0-37.0) g/dL Neutrophils # (1.3-7.7) k/uL Lymphocytes # (1.0-4.8) k/uL VBG pCO2 (37-51) mmHg VBG HCO3 (24-28) mmol/L Chloride (98-107) mmol/L Carbon Dioxide (22-30) mmol/L Glucose (74-99) mg/dL POC Glucose (mg/dL) 189 H 185 H (70-110) mg/dL Calcium (8.4-10.2) mg/dL ALT (4-49) U/L Assessment and Plan (1) Pneumonia Status: Acute Code(s): J18.9 - PNEUMONIA, UNSPECIFIED ORGANISM SNOMED Code(s): 582834328 (2) Hypoxia Status: Acute Code(s): R09.02 - HYPOXEMIA SNOMED Code(s): 547145325 Plan: 1patient presented to hospital with increasing shortness of breath which is likely multifactorial in this patient with a COPD exacerbation with a tracheobronchitis and concern for possible worsening with atrial flutter and rapid ventricular response, clinically not behaving as pneumonia as the patient did not have any fever White count has been normal chest x-ray Mediport including infiltrate 2-we will try to obtain CT angiogram report from the transferring facility this was discussed with the RN to get the report 3-we will check CRP procalcitonin and sputum culture 4-May continue Zosyn while waiting for the work-up to be completed We will follow on clinical condition and cultures to further adjust medication if needed Thank you for this consultation we will follow the patient along with you Time with Patient: Greater than 30
[2023-02-01 20:41] LABS: Glucose,Whole Blood 139 mg/dL (70-110)
[2023-02-02] MEDS: PIPERACILLIN-TAZOBACTAM 3.375 GM in SODIUM CHLORIDE 0.9% 100 ML IVPB SCH ×4 (00:12→23:14)
[2023-02-02] MEDS: methylPREDNISolone SOD SUCCI 125 MG/2 ML VIAL IV SCH ×5 (00:12→23:14)
[2023-02-02] MEDS ORDERED: IPRATROPIUM-ALBUTEROL 3 ML NEB INHALATION PRN (01:14)
[2023-02-02] MEDS: LORazepam 1 MG TAB PO PRN ×3 (01:15→16:49)
--- NOTE | 2023-02-02 01:47 | P.CNPUL ---
History of Present Illness Consult date: 02/02/23 Requesting physician: Shlomo Dykes Reason for consult: COPD, other (ICU management) Chief complaint: Shortness of breath and chest palpitations History of present illness: I am seeing this patient today 02/02/2023 in new consultation in regard to ICU management for acute hypoxic and hypercapnic respiratory failure related to COPD exacerbation and new onset atrial flutter. Patient is a 57-year-old white male with past medical history significant for severe COPD with an FEV1 39% of pr edicted, chronic oxygen dependence normally maintained on 3 L nasal cannula, current 1-1/2 pack per day smoker, previous respiratory failure and mechanical ventilator dependence, coronary artery disease with previous stents to the LAD and RCA, polysubstance abuse, chronic back pain, and previous brain aneurysms. Patient was transferred from [facility] yesterday afternoon for worsening dyspnea and hypoxia. He was reportedly previously seen at the outside facility 5 days prior, and left AGAINST MEDICAL ADVICE, because he wanted to attend his brother's . He did return to [facility] for dyspnea and chest palpitations. He was found to be in atrial flutter. Initial workup at outside facility included a nonenhanced chest CT which showed no acute cardiopulmonary process. Patient was placed on the BiPAP and transferred to [facility]. On arrival, VBG showed a pCO2 of 103, pH of 7.31. Chest x-ray showed cardiomegaly without any significant cardiopulmonary disease/process. He denies any fever, chills, cough, chest pain. Denies sick contacts. He also denies any weight gain, lower extremity swelling, orthopnea, lightheadedness, syncope. Patient is currently resting in bed, on BiPAP with settings 12/6 and FiO2 50%. He is calm and tolerating the BiPAP. His tidal volumes are only 200-250 ML's, respiratory rate 20 breaths per minute, and IPAP was increased to 14. Patient currently has Cardizem infusing at 15 mg per hour and low intensity heparin infusion per protocol. Heart rhythm is atrial flutter. His heart rate was as high as 150 bpm on arrival, and currently more controlled, with a rate of 100- 115 bpm. He is negative for influenza, RSV, COVID-19. CBC on arrival was unremarkable. Empirically covered on Zosyn. Blood cultures are pending. He remains afebrile. BMP shows sodium 138, potassium 4.7, chloride 85, serum CO2 46, BUN 20, creatinine 0.77, glucose 139. Normal saline infusing at 75 mL per hour. D-dimer was 0.41. NT proBNP was elevated at 1410. Currently receiving a combination of budesonide inhalation, formoterol inhalation, DuoNeb's, and IV Solu-Medrol. Vital signs are stable. Review of Systems REVIEW OF SYSTEMS: CONSTITUTIONAL: Denies any recent significant weight loss or weight gain. EYES: Denies change in vision. EARS, NOSE, MOUTH, THROAT: Denies headaches, denies sore throat. CARDIOVASCULAR: See HPI RESPIRATORY: See HPI GASTROINTESTINAL: Denies change in appetite, abdominal pain, nausea and vomiting, or diarrhea GENITOURINARY: Denies hematuria, denies infections. MUSKULOSKELETAL: Denies pain, denies swelling. INTEGUMENTARY: Denies rash, denies eczema. NEUROLOGICAL: Denies recent memory loss, no recent seizure activity. PSYCHIATRIC: Denies anxiety, denies depression. HEMATOLOGIC/LYMPHATIC: Denies anemia, denies enlarged lymph node Past Medical History Past Medical History: Coronary Artery Disease (CAD), COPD, Diabetes Mellitus, Hyperlipidemia, Hypertension Last Myocardial Infarction Date:: 2014 History of Any Multi-Drug Resistant Organisms: None Reported Past Surgical History: Heart Catheterization With Stent Additional Past Surgical History / Comment(s): 2 BRAIN ANERYSM, SHOULDER Past Anesthesia/Blood Transfusion Reactions: No Reported Reaction Date of Last Stent Placement:: 2014 Past Psychological History: No Psychological Hx Reported Smoking Status: Current every day smoker Past Alcohol Use History: None Reported Past Drug Use History: None Reported - Past Family History Mother Family Medical History: Cancer Father Family Medical History: Diabetes Mellitus Medications and Allergies Home Medications Medication Instructions Recorded Confirmed Type Albuterol Inhaler [Ventolin Hfa 2 puff INHALATION RT-Q4H PRN 03/13/21 12/07/21 History Inhaler] Buprenorphine HCl/Naloxone HCl 1 film SL BID@0800,199903/13/21 12/07/21 History [Suboxone 8 mg-2 mg Sl Film] LORazepam [Ativan] 1 mg PO TID PRN 03/13/21 12/07/21 History Lisdexamfetamine Dimesylate 60 mg PO DAILY 03/13/21 12/07/21 History [Vyvanse] QUEtiapine [SEROquel] 200 mg PO HS 03/13/21 12/07/21 History Tamsulosin [Flomax] 0.4 mg PO DAILY 03/13/21 12/07/21 History Vilazodone HCl [Viibryd] 20 mg PO DAILY 03/13/21 12/07/21 History cloNIDine HCL [Catapres] 0.1 mg PO TID 03/13/21 12/07/21 History lisinopriL 40 mg PO DAILY 03/13/21 12/07/21 History Budesonide/Glycopyr/Formoterol 2 puff INHALATION RT-BID 12/07/21 12/07/21 History [Breztri Aerosphere Inhaler] Buprenorphine HCl/Naloxone HCl 1 film SL DAILY@1400 12/07/21 12/07/21 History [Suboxone 4 mg-1 mg Sl Film] Gabapentin [Neurontin] 300 mg PO TID 12/07/21 12/07/21 History Albuterol Nebulized [Ventolin 2.5 mg INHALATION Q6H 30 Days #6 12/11/21 Rx Nebulized] pack Aspirin 81 mg PO DAILY #30 tab 12/11/21 Rx Atorvastatin [Lipitor] 40 mg PO DAILY #30 tab 12/11/21 Rx Furosemide [Lasix] 40 mg PO DAILY #60 tab 12/11/21 Rx Isosorbide Mononitrate ER [Imdur] 30 mg PO DAILY #30 tablet 12/11/21 Rx Metoprolol Tartrate [Lopressor] 12.5 mg PO BID #60 tab 12/11/21 Rx predniSONE [Deltasone] 40 mg PO DAILY 5 Days #10 tab 12/11/21 Rx Allergies Allergy/AdvReac Type Severity Reaction Status Date / Time ketorolac [From Toradol] Allergy Unknown Verified 02/01/23 15:10 Physical Exam Vitals: Vital Signs Temp Pulse Resp BP Pulse Ox FiO2 02/02/23 00:00 98.2 F 134 H 11 L 116/69 94 L 50 02/01/23 23:38 103 H 02/01/23 23:30 92 12 106/79 95 02/01/23 23:25 97 50 02/01/23 23:00 103 H 10 L 116/77 95 02/01/23 22:30 104 H 10 L 106/65 96 02/01/23 22:00 103 H 18 104/70 96 02/01/23 21:30 107 H 17 112/68 02/01/23 21:00 112 H 22 120/65 95 02/01/23 20:34 110 H 02/01/23 20:30 107 H 12 112/76 96 02/01/23 20:21 96 02/01/23 20:20 100 02/01/23 20:14 104 H 50 02/01/23 20:00 98.1 F 112 H 14 106/78 93 L 50 02/01/23 19:30 120 H 8 L 131/80 94 L 02/01/23 19:00 109 H 23 123/86 93 L 02/01/23 18:30 108 H 13 119/87 92 L 02/01/23 18:00 128 H 28 H 113/76 93 L 02/01/23 17:30 110 H 26 H 122/81 88 L 02/01/23 17:00 89 23 127/80 90 L 02/01/23 16:30 108 H 24 129/97 95 02/01/23 16:00 97.1 F L 84 15 135/81 96 50 02/01/23 15:30 97 23 125/99 94 L 02/01/23 15:24 122 H 02/01/23 15:11 108 H 50 02/01/23 15:00 97.7 F 111 H 26 H 125/99 94 L 50 02/01/23 14:56 50 02/01/23 14:00 124 H 22 118/73 96 50 02/01/23 13:30 118 H 24 115/94 91 L 50 02/01/23 13:18 156 H 22 115/94 91 L 50 02/01/23 12:53 50 02/01/23 12:52 50 02/01/23 12:50 24 02/01/23 12:42 151 H 22 115/94 95 Intake and Output 02/01/23 02/01/23 02/02/23 14:59 22:59 06:59 Intake Total 797.348 150 Output Total 1150 0 Balance -352.652 150 Intake: IV 600 150 Sodium Chloride 0.9% 1, 600 150 000 ml @ 75 mls/hr IV . [id number] [facility] Rx#:[id number] Intake, IV Titration 197.348 Amount Diltiazem 125 mg In 125.000 Sodium Chloride 0.9% 100 ml @ 10 MG/HR 10 mls/hr IV .[id number] [facility] Rx#: [id number] Heparin Sod,Pork in 0.45% 72.348 NaCl 25,000 unit In 0.45 % NaCl 1 250ml.bag @ 8.82 UNITS/KG/HR 10.002 mls/ hr IV .Q24H [facility] Rx#: [id number] Output: Urine 1150 0 Other: Voiding Method Urinal Urinal # Voids 1 Weight 113.398 kg 121.5 kg GENERAL EXAM: Alert, 57-year-old white male, on the BiPAP and comfortable in no apparent distress. HEAD: Normocephalic and atraumatic EYES: Normal reaction of pupils, equal size. NOSE: Clear with pink turbinates. THROAT: No erythema or exudates. NECK: No masses, no JVD. CHEST: No chest wall deformity. LUNGS: Equal air entry with expiratory wheezes throughout. no crackles, rhonchi or focal dullness. On BiPAP with settings 12/6 and FiO2 of 50%. No conversational dyspnea or accessory muscle use.. CVS: S1 and S2 normal with no audible murmur, irregular rhythm. No extra heart sounds ABDOMEN: Obese abdomen. No hepatosplenomegaly, active bowel sounds, no guarding or rigidity. SPINE: No scoliosis or deformity SKIN: No rashes CENTRAL NERVOUS SYSTEM: No focal deficits, tone is normal in all 4 extremities. EXTREMITIES: There is no peripheral edema, clubbing, or cyanosis. Peripheral pulses are intact. Results - Laboratory Findings CBC and BMP: 02/02/23 03:05 02/02/23 03:05 PT/INR, D-dimer PT 11.9 sec (9.0-12.0) 02/01/23 12:56 INR 1.1 (<1.2) 02/01/23 12:56 D-Dimer 0.41 mg/L FEU (<0.60) 02/01/23 23:44 Abnormal lab findings: Abnormal Labs 02/01/23 02/01/23 02/01/23 12:56 12:56 12:56 MCV 102.0 H MCHC 29.5 L Neutrophils # 9.9 H Lymphocytes # 0.3 L APTT VBG pCO2 103 H* VBG HCO3 50 H Chloride 85 L Carbon Dioxide 46 H* Glucose 156 H POC Glucose (mg/dL) Calcium 7.8 L ALT 54 H 02/01/23 02/01/23 02/01/23 15:00 16:18 19:25 MCV MCHC Neutrophils # Lymphocytes # APTT 30.3 H VBG pCO2 VBG HCO3 Chloride Carbon Dioxide Glucose POC Glucose (mg/dL) 189 H 185 H Calcium ALT 02/01/23 20:39 MCV MCHC Neutrophils # Lymphocytes # APTT VBG pCO2 VBG HCO3 Chloride Carbon Dioxide Glucose POC Glucose (mg/dL) 139 H Calcium ALT - Diagnostic Findings Chest x-ray: image reviewed CT scan - chest: report reviewed Assessment and Plan Assessment: New-onset atrial flutter Acute COPD exacerbation. Chest x-ray showed no obvious focal consolidation or pneumonia. Negative for COVID-19, influenza, RSV. Acute on chronic hypoxemic and hypercapnic respiratory failure secondary to above. Currently on BiPAP with settings of 12/6 and FiO2 50%. He is normally chronically oxygen dependent on 3 L nasal cannula at home. History of previous respiratory failure and ventilator dependence related to COPD exacerbation Coronary artery disease with previous stents to the LAD and RCA Hypertension Hyperlipidemia Morbid Obesity with a BMI of 41 History of polysubstance abuse, on Suboxone outpatient Chronic back pain Chronic nicotine dependence, Current 1-1/2 pack per day smoker History of brain aneurysm Plan: Patient's medications, labs, chest x-ray, outside reports reviewed Continue BiPAP, increase IPAP to 14, and wean FiO2 as tolerated Continue budesonide, formoterol, DuoNeb inhalations Continue IV Solu-Medrol Check procalcitonin level and manage empiric antibiotics accordingly Blood cultures are pending and sputum culture was ordered Smoking cessation education performed, and nicotine replacement offered Continue Cardizem infusion Continue low intensity heparin infusion per protocol Cardiology was consulted Check TSH/reflux free T4 Prognosis is guarded, and the patient will continue to be monitored in the intensive care unit I have personally seen and examined the patient, performed the documentation and the assessment and plan as written. Number of minutes spent on the visit:20 This is a joint evaluation is being done along with a nurse practitioner. The patient is being seen in the intensive care unit for acute hypoxic respiratory failure and atrial fibrillation with rapid ventricular response. At this point in time, the patient is on a BiPAP at pressure 14/6 cm of water with FiO2 of 50%. Seems to be quite comfortable, with a respiratory rate of 23 and a tidal volume of around 300 while being on a BiPAP. He remains in atrial fibrillation with rapid ventricular response. He is on a Cardizem drip at 50 mg an hour. He is on IV heparin drip. He is awake and alert and communicating. Echocardiogram is in progress. Chest x-ray shows no acute abnormalities. Does have some underlying cardiomegaly. Note that the patient has underlying coronary artery disease and during a recent admission to the hospital back in November 2021, the patient underwent a cardiac catheterization and he was found to have patent stents to the LAD and RCA. He did have some mild diffuse disease involving 90% diagonal lesion. He is known to have oxygen dependent COPD. Is a chronic smoker. D-dimer was low. Covid 19 was negative. He did have a Covid 19 infection approximately a year ago. 1 and apparently, he stabilized and he is maintaining his own blood pressure. She is on a combination of DuoNeb about treatments [id number], Pulmicort Respules, IV Solu-Medrol, Cardizem drip, on February was covered also with broad-spectrum antibiotics with IV Zosyn. We'll continue current treatment. Condition is critical. Echocardiogram is in progress. The patient be kept in the intensive care unit for now. This evaluation was done in more than 30 minutes. Time with Patient: Greater than 30
--- NOTE | 2023-02-02 02:48 | HP ---
HISTORY AND PHYSICAL CHIEF COMPLAINT: Shortness of breath. HISTORY OF PRESENT ILLNESS: This is a 57-year-old gentleman with a past medical history of COPD, CAD, diabetes mellitus type 2, was recently admitted to [facility] for a few days, but apparently 5 days ago, the patient left the hospital against medical advice. He presented to [facility] again with shortness of breath. The patient underwent a CT scan and chest x-ray and subsequently referred to [facility]. The patient was found to have COPD acute exacerbation with acute respiratory failure. The patient was started on BiPAP and transferred the patient to ICU. The patient also had atrial flutter with fast ventricular rate, started on IV heparin also at this time. There is no history of any fever, rigors, or chills. PAST MEDICAL HISTORY: Reviewed, include CAD, COPD. The rest of the history and rest of the chart is also reviewed. HOME MEDICATIONS: Reviewed include prednisone. Rest of the dose and rest of the medications reviewed, they are not confirmed yet. ALLERGIES: Toradol. FAMILY HISTORY: History of cancer in the family. SOCIAL HISTORY: Continued ongoing smoking. No history of alcohol intake. REVIEW OF SYSTEMS: A 14-point review is negative except as mentioned earlier. PHYSICAL EXAMINATION: VITAL SIGNS: Pulse is 111, irregular. Blood pressure 125/99, respirations 26. HEENT: Conjunctivae normal. NECK: No JVD. CARDIOVASCULAR: S1, S2, tachycardic. RESPIRATIONS: Bilateral scattered rhonchi and crackles. Expiratory wheezing also present. ABDOMEN: Soft, obese, nontender. EXTREMITIES: No edema. No cyanosis. Diffusely weak. SKIN: No ulcer, rash, or bleeding. JOINTS: No active deforming arthropathy. LABORATORY DATA: Reviewed. ASSESSMENT: 1. Chronic obstructive pulmonary disease acute exacerbation with possible acute bilateral pneumonia with acute hypoxic respiratory failure. 2. Atrial flutter with fast ventricular rate. 3. History of coronary artery disease. 4. Diabetes mellitus, type 2. 5. Hypertension. 6. History of coronary artery disease stent. 7. History of brain aneurysm. 8. Multiple medical issues. RECOMMENDATIONS AND DISCUSSION: This is a 57-year-old gentleman, who presented with multiple complex medical issues, we will monitor the patient closely. Recommend the patient to be admitted to ICU and intensive bronchodilator treatment. I would also recommend empiric antibiotics and obtain cultures. The patient recently signed out against medical advice from the hospital. We will obtain Pulmonary and Infectious Disease evaluations. Otherwise, obtain the cultures as mentioned earlier. DVT prophylaxis. Home medications will be initiated once they are confirmed. Once again, prognosis guarded. Further recommendations to follow. See orders for further details. MMODL / IJN: [id number] /
[2023-02-02] MEDS: SODIUM CHLORIDE 0.9% 1,000 ML IV SCH ×2 (04:00→19:06)
[2023-02-02 04:03] LABS: Basophils % (A) 0 %; Eosinophils % (A) 0 %; HGB 12.8 gm/dL (13.0-17.5); Hypochromasia Moderate; Lymphocytes # (A) 0.3 k/uL (1.0-4.8); Lymphocytes % (A) 5 %; MCH 30.9 pg (25.0-35.0); MCHC 31.2 g/dL (31.0-37.0); MCV 99.1 fL (80.0-100.0); Macrocytosis Slight; Mean Platelet Volume 8.9; Monocytes # (A) 0.2 k/uL (0-1.0); Monocytes % (A) 4 %; Neutrophils # (A) 5.2 k/uL (1.3-7.7); Neutrophils % (A) 90 %; Platelet Count 164 k/uL (150-450); RBC 4.13 m/uL (4.30-5.90); RDW 14.8 % (11.5-15.5); WBC 5.8 k/uL (3.8-10.6)
[2023-02-02 04:14] LABS: African American GFR (CKD) >90 (>60 ml/min/1.73 sqM); Blood Urea Nitrogen 20 mg/dL (9-20); Calcium 7.6 mg/dL (8.4-10.2); Chloride 87 mmol/L (98-107); Glucose 141 mg/dL (74-99); Non-African American GFR(CKD) >90 (>60 ml/min/1.73 sqM); Potassium 4.5 mmol/L (3.5-5.1); Sodium 136 mmol/L (137-145)
[2023-02-02 04:20] LABS: Anion Gap 8 mmol/L
[2023-02-02 04:22] LABS: Carbon Dioxide 41 mmol/L (22-30); INR 1.2 (<1.2); Prothrombin Time 11.9 sec (9.0-12.0)
[2023-02-02 05:31] LABS: T4, Free (Free Thyroxine) 0.92 ng/dL (0.78-2.19)
[2023-02-02] MEDS: DILTIAZEM 125 MG in SODIUM CHLORIDE 0.9% 100 ML IV SCH ×3 (06:21→23:13)
[2023-02-02 06:27] LABS: Glucose,Whole Blood 175 mg/dL (70-110)
[2023-02-02] MEDS: INSULIN ASPART (NovoLOG) 100 UNIT/ML VIAL SQ SCH ×4 (06:48→20:52)
--- NOTE | 2023-02-02 07:11 | XR ---
EXAMINATION TYPE: XR chest 1V DATE OF EXAM: 02/02/2023 COMPARISON: 02/01/2023 HISTORY: 57 year-old male shortness of breath, dyspnea TECHNIQUE: Single frontal view of the chest is obtained. FINDINGS: Heart remains borderline enlarged. Interstitial prominence persists. Hyperinflation. Left thoracic wall deformity is unchanged with associated underlying subpleural density. Difficult to excl ude increasing subpleural density here on the left. IMPRESSION: COPD and borderline heart size both unchanged. Chronic left-sided thoracic wall deformit y. Associated subpleural density on the left redemonstrated. Slight interval increase in density diff icult to exclude. Correlate to exclude any developing infiltrate.
[2023-02-02] MEDS: HEPARIN SOD,PORK IN 0.45% NACL 25,000 UNIT in 0.45% NACL 1 250ML.BAG IV SCH ×2 (07:36→23:11)
[2023-02-02] MEDS: PANTOPRAZOLE 40 MG/10 ML VIAL IVP SCH (08:36)
[2023-02-02] MEDS ORDERED: METOPROLOL TARTRATE 12.5 MG TAB PO SCH (09:00)
[2023-02-02] MEDS ORDERED: ISOSORBIDE MONONITRATE ER 30 MG TAB.ER.24H PO SCH (09:00)
[2023-02-02] MEDS ORDERED: lisinopriL 20 MG TAB PO SCH (09:00)
[2023-02-02] MEDS: BUDESONIDE 1 MG/2 ML NEBU INHALATION SCH ×3 (09:06→21:21)
[2023-02-02] MEDS: FORMOTEROL FUMARATE 20 MCG/2 ML NEBU INHALATION SCH ×3 (09:06→21:21)
[2023-02-02] MEDS: IPRATROPIUM-ALBUTEROL 3 ML NEB INHALATION SCH ×5 (09:06→21:22)
[2023-02-02] MEDS: NICOTINE 21MG/24HR PATCH TRANSDERM SCH (09:17)
[2023-02-02] MEDS: TAMSULOSIN 0.4 MG CAP.ER.24H PO SCH (09:21)
[2023-02-02] MEDS: GABAPENTIN 300 MG CAP PO SCH ×3 (09:21→20:53)
[2023-02-02] MEDS: ATORVASTATIN 40 MG TAB PO SCH (09:21)
[2023-02-02] MEDS: ASPIRIN 81 MG PO SCH (09:23)
--- NOTE | 2023-02-02 09:24 | CA ---
Transthoracic Echo Report Name: Andre Garcia Age: 57 Gender: M : 1965 Exam Date: 02/02/2023 07:43 Exam Location: [facility] Ht (in): 68 Wt (lb): 264 Ordering Physician: Danielle Dorman MD Attending/Referring Phys: Rn Endocrinology Valorie Limon RDCS Procedure CPT: Indications: chf, cardiomegaly Cardiac Hx: stents Technical Quality: Technically difficult study Contrast 1: Total Dose (mL): Contrast 2: Total Dose (mL): MEASUREMENTS (Male / Female) Normal Values 2D ECHO LV Diastolic Diameter PLAX 4.9 cm 4.2 - 5.9 / 3.9 - 5.3 cm LV Systolic Diameter PLAX 3.9 cm IVS Diastolic Thickness 1.6 cm 0.6 - 1.0 / 0.6 - 0.9 cm LVPW Diastolic Thickness 1.5 cm 0.6 - 1.0 / 0.6 - 0.9 cm LV Relative Wall Thickness 0.6 RV Internal Dim ED PLAX 3.6 cm LVOT Diameter 1.9 cm LA Systolic Diameter LX 4.5 cm 3.0 - 4.0 / 2.7 - 3.8 cm M-MODE Aortic Root Diameter MM 3.1 cm MV E Point Septal Separation 0.4 cm DOPPLER AV Peak Velocity 203.0 cm/s AV Peak Gradient 16.5 mmHg AV Mean Velocity 144.3 cm/s AV Mean Gradient 9.6 mmHg AV Velocity Time Integral 35.6 cm LVOT Peak Velocity 112.0 cm/s LVOT Peak Gradient 5.0 mmHg AV Area Cont Eq pk 1.6 cm??? MV Area PHT 9.7 cm??? MV Deceleration Time 106.2 ms TR Peak Velocity 251.2 cm/s TR Peak Gradient 25.2 mmHg Right Ventricular Systolic Press 39.2 mmHg FINDINGS Left Ventricle Left ventricular ejection fraction is estimated at 45 %. Left ventricular cavity size normal. Moderate concentric left ventricular hypertrophy. Right Ventricle Moderate right ventricular dilatation. Mild pulmonary hypertension. Right Atrium Normal right atrial size. Left Atrium Moderate left atrial dilatation. Mitral Valve Mitral valve thickened. Mild mitral annular calcification. Mild mitral regurgitation. Aortic Valve Aortic valve not well visualized. Mild aortic stenosis with a peak gradient of 17 mmHg and a mean gradient of 10 mmHg. Tricuspid Valve Structurally normal tricuspid valve. Mild tricuspid regurgitation. Pulmonic Valve Pulmonic valve not well visualized. Pericardium Normal pericardium. No pericardial effusion. Aorta Normal size aortic root and proximal ascending aorta. CONCLUSIONS Moderate increased left ventricular wall thickness Left ventricular ejection fraction 45% Moderate right ventricular dilation RVSP 39 Mild mitral regurgitation Mild aortic stenosis Previewed by: Dr. Eddie Lund DO (Electronically Signed) Final Date: 02 Feb 2023 09:23
[2023-02-02] MEDS: NON FORMULARY DRUG (Vilazodone Hcl [Viibryd] 20 MG Tablet) PO SCH (09:55)
[2023-02-02] MEDS: SUBOXONE PO SCH ×2 (10:16→21:00)
[2023-02-02 11:43] LABS: Glucose,Whole Blood 157 mg/dL (70-110)
--- NOTE | 2023-02-02 12:18 | P.PN ---
Subjective Progress Note Date: 02/02/23 Principal diagnosis: Possible pneumonia Patient is a 57-year-old male with a past medical history significant for COPD apparently the patient was recently admitted to the [facility] about 5 days ago and the patient left AGAINST MEDICAL ADVICE patient subsequently presenting back to the hospital with worsening shortness of breath and hypoxemia patient was noted to be in new onset atrial flutter, patient did have a CT at the outside facility and reported negative for cardiopulmonary disease and the patient was subsequently transferred to [facility] for management of his atrial fibrillation and rapid ventricular response On today's evaluation that is 02/02/2023, the patient remains to be stable, the patient is BiPAP dependent patient is sleepy arousable but not a good historian vomiting diarrhea or any other changes reported by the nursing staff Objective - Vital Signs Vital signs: Vital Signs Temp 98.2 F 02/02/23 00:00 Pulse 105 H 02/02/23 09:00 Resp 26 H 02/02/23 09:00 BP 124/66 02/02/23 09:00 Pulse Ox 91 L 02/02/23 09:00 FiO2 50 02/02/23 09:07 Intake & Output 02/01/23 02/02/23 02/02/23 18:59 06:59 18:59 Intake Total 901.982 9297.752 266.792 Output Total 600 950 0 Balance -269.667 340.752 266.792 Weight 121.5 kg 120.2 kg Intake: IV 300 900 225 Sodium Chloride 0.9% 1, 300 900 225 000 ml @ 75 mls/hr IV . [id number] [facility] Rx#:[id number] Intake, IV Titration 30.333 390.752 41.792 Amount Diltiazem 125 mg In 30.333 204.917 Sodium Chloride 0.9% 100 ml @ 10 MG/HR 10 mls/hr IV .[id number] [facility] Rx#: [id number] Heparin Sod,Pork in 0.45% 185.835 41.792 NaCl 25,000 unit In 0.45 % NaCl 1 250ml.bag @ 8.82 UNITS/KG/HR 10.002 mls/ hr IV .Q24H [facility] Rx#: [id number] Output: Urine 600 950 0 Other: Voiding Method Urinal Urinal # Voids 1 1 - Exam GENERAL DESCRIPTION: Middle-age male lying in bed in no distress RESPIRATORY SYSTEM: Unlabored breathing , decreased intensity of breath sounds HEART: S1 S2 regular rate and rhythm , ABDOMEN: Soft , no tenderness EXTREMITIES: No edema feet - Labs CBC & Chem 7: 02/02/23 03:05 02/02/23 03:05 Labs: Abnormal Lab Results - Last 24 Hours (Table) 02/01/23 02/01/23 02/01/23 Range/Units 12:56 12:56 12:56 RBC (4.30-5.90) m/uL Hgb (13.0-17.5) gm/dL MCV 102.0 H (80.0-100.0) fL MCHC 29.5 L (31.0-37.0) g/dL Neutrophils # 9.9 H (1.3-7.7) k/uL Lymphocytes # 0.3 L (1.0-4.8) k/uL INR (<1.2) APTT (22.0-30.0) sec VBG pCO2 103 H* (37-51) mmHg VBG HCO3 50 H (24-28) mmol/L Sodium (137-145) mmol/L Chloride 85 L (98-107) mmol/L Carbon Dioxide 46 H* (22-30) mmol/L Creatinine (0.66-1.25) mg/dL Glucose 156 H (74-99) mg/dL POC Glucose (mg/dL) (70-110) mg/dL Calcium 7.8 L (8.4-10.2) mg/dL ALT 54 H (4-49) U/L TSH (0.465-4.680) mIU/L 02/01/23 02/01/23 02/01/23 Range/Units 15:00 16:18 19:25 RBC (4.30-5.90) m/uL Hgb (13.0-17.5) gm/dL MCV (80.0-100.0) fL MCHC (31.0-37.0) g/dL Neutrophils # (1.3-7.7) k/uL Lymphocytes # (1.0-4.8) k/uL INR (<1.2) APTT 30.3 H (22.0-30.0) sec VBG pCO2 (37-51) mmHg VBG HCO3 (24-28) mmol/L Sodium (137-145) mmol/L Chloride (98-107) mmol/L Carbon Dioxide (22-30) mmol/L Creatinine (0.66-1.25) mg/dL Glucose (74-99) mg/dL POC Glucose (mg/dL) 189 H 185 H (70-110) mg/dL Calcium (8.4-10.2) mg/dL ALT (4-49) U/L TSH (0.465-4.680) mIU/L 02/01/23 02/02/23 02/02/23 Range/Units 20:39 03:05 03:05 RBC 4.13 L (4.30-5.90) m/uL Hgb 12.8 L (13.0-17.5) gm/dL MCV (80.0-100.0) fL MCHC (31.0-37.0) g/dL Neutrophils # (1.3-7.7) k/uL Lymphocytes # 0.3 L (1.0-4.8) k/uL INR 1.2 H (<1.2) APTT (22.0-30.0) sec VBG pCO2 (37-51) mmHg VBG HCO3 (24-28) mmol/L Sodium (137-145) mmol/L Chloride (98-107) mmol/L Carbon Dioxide (22-30) mmol/L Creatinine (0.66-1.25) mg/dL Glucose (74-99) mg/dL POC Glucose (mg/dL) 139 H (70-110) mg/dL Calcium (8.4-10.2) mg/dL ALT (4-49) U/L TSH (0.465-4.680) mIU/L 02/02/23 02/02/23 02/02/23 Range/Units 03:05 03:05 06:25 RBC (4.30-5.90) m/uL Hgb (13.0-17.5) gm/dL MCV (80.0-100.0) fL MCHC (31.0-37.0) g/dL Neutrophils # (1.3-7.7) k/uL Lymphocytes # (1.0-4.8) k/uL INR (<1.2) APTT 43.4 H (22.0-30.0) sec VBG pCO2 (37-51) mmHg VBG HCO3 (24-28) mmol/L Sodium 136 L (137-145) mmol/L Chloride 87 L (98-107) mmol/L Carbon Dioxide 41 H* (22-30) mmol/L Creatinine 0.63 L (0.66-1.25) mg/dL Glucose 141 H (74-99) mg/dL POC Glucose (mg/dL) 175 H (70-110) mg/dL Calcium 7.6 L (8.4-10.2) mg/dL ALT (4-49) U/L TSH 0.409 L (0.465-4.680) mIU/L Assessment and Plan (1) Acute exacerbation of chronic obstructive pulmonary disease Current Visit: Yes Status: Acute Code(s): J44.1 - CHRONIC OBSTRUCTIVE PULMONARY DISEASE W (ACUTE) EXACERBATION SNOMED Code(s): 027303825 Plan: 1patient presented to hospital with increasing shortness of breath which is likely multifactorial in this patient with a COPD exacerbation with a tracheobronchitis and concern for possible worsening with atrial fibrillation and rapid ventricular response, clinically not behaving as pneumonia as the patient did not have any fever White count has been normal chest x-ray no acute infiltrate 2-patient did have normal procalcitonin making pneumonia less likely and more likely dealing with COPD exacerbation with tracheobronchitis, antibiotics can be safely discontinued Time with Patient: Less than 30
[2023-02-02] MEDS ORDERED: NON FORMULARY DRUG (Buprenorphine Hcl/Naloxone Hcl [Suboxone 4 Mg-1 Mg Sl Film] 1 EACH Fil SUBLINGUAL SCH (14:00)
[2023-02-02] MEDS: SUBOXONE SUBLINGUAL SCH (14:26)
[2023-02-02 16:28] LABS: Glucose,Whole Blood 220 mg/dL (70-110)
--- NOTE | 2023-02-02 19:04 | P.PN ---
Subjective Patient is resting comfortably in bed He is using the BiPAP mask He remains in atrial fibrillation on IV Cardizem and IV heparin No chest discomfort Heart sounds are irregular Breath sounds are reduced bilaterally Blood pressure 110/63 mmHg pulse rate 117 beats a minute afebrile Hemoglobin 12.8 Sodium 136 potassium 4.5 Elevated bicarb of 41 TSH 0.41 Normal renal function Impression A. fib with RVR Respiratory failure requiring BiPAP therapy Suggest Stop Imdur Reduced dose of lisinopril 20 mg by mouth daily Increase metoprolol to 25 mg twice daily Continue IV Cardizem and heparin Maximize beta blockers and slowly taper off IV Cardizem Any hypertension will be addressed with reduction in lisinopril dose Objective - Vital Signs Vital signs: Vital Signs Temp 97.8 F 02/02/23 16:30 Pulse 138 H 02/02/23 18:00 Resp 29 H 02/02/23 18:00 BP 108/70 02/02/23 18:00 Pulse Ox 92 L 02/02/23 18:00 FiO2 50 02/02/23 15:25 Intake & Output 02/02/23 02/02/23 02/03/23 06:59 18:59 06:59 Intake Total 4781.132 7004.792 Output Total 950 650 Balance 340.752 416.792 Weight 120.2 kg Intake: IV 900 900 Sodium Chloride 0.9% 1, 900 900 000 ml @ 75 mls/hr IV . [id number] [facility] Rx#:[id number] Intake, IV Titration 390.752 166.792 Amount Diltiazem 125 mg In 204.917 125 Sodium Chloride 0.9% 100 ml @ 10 MG/HR 10 mls/hr IV .[id number] [facility] Rx#: [id number] Heparin Sod,Pork in 0.45% 185.835 41.792 NaCl 25,000 unit In 0.45 % NaCl 1 250ml.bag @ 8.82 UNITS/KG/HR 10.002 mls/ hr IV .Q24H [facility] Rx#: [id number] Output: Urine 950 650 Other: Voiding Method Urinal Urinal # Voids 1 - Labs CBC & Chem 7: 02/02/23 03:05 02/02/23 03:05 Labs: Abnormal Lab Results - Last 24 Hours (Table) 02/01/23 02/01/23 02/02/23 Range/Units 19:25 20:39 03:05 RBC (4.30-5.90) m/uL Hgb (13.0-17.5) gm/dL Lymphocytes # (1.0-4.8) k/uL INR 1.2 H (<1.2) APTT 30.3 H (22.0-30.0) sec Sodium (137-145) mmol/L Chloride (98-107) mmol/L Carbon Dioxide (22-30) mmol/L Creatinine (0.66-1.25) mg/dL Glucose (74-99) mg/dL POC Glucose (mg/dL) 139 H (70-110) mg/dL Calcium (8.4-10.2) mg/dL TSH (0.465-4.680) mIU/L 02/02/23 02/02/23 02/02/23 Range/Units 03:05 03:05 03:05 RBC 4.13 L (4.30-5.90) m/uL Hgb 12.8 L (13.0-17.5) gm/dL Lymphocytes # 0.3 L (1.0-4.8) k/uL INR (<1.2) APTT 43.4 H (22.0-30.0) sec Sodium 136 L (137-145) mmol/L Chloride 87 L (98-107) mmol/L Carbon Dioxide 41 H* (22-30) mmol/L Creatinine 0.63 L (0.66-1.25) mg/dL Glucose 141 H (74-99) mg/dL POC Glucose (mg/dL) (70-110) mg/dL Calcium 7.6 L (8.4-10.2) mg/dL TSH 0.409 L (0.465-4.680) mIU/L 02/02/23 02/02/23 02/02/23 Range/Units 06:25 10:34 11:41 RBC (4.30-5.90) m/uL Hgb (13.0-17.5) gm/dL Lymphocytes # (1.0-4.8) k/uL INR (<1.2) APTT 53.8 H (22.0-30.0) sec Sodium (137-145) mmol/L Chloride (98-107) mmol/L Carbon Dioxide (22-30) mmol/L Creatinine (0.66-1.25) mg/dL Glucose (74-99) mg/dL POC Glucose (mg/dL) 175 H 157 H (70-110) mg/dL Calcium (8.4-10.2) mg/dL TSH (0.465-4.680) mIU/L 02/02/23 Range/Units 16:26 RBC (4.30-5.90) m/uL Hgb (13.0-17.5) gm/dL Lymphocytes # (1.0-4.8) k/uL INR (<1.2) APTT (22.0-30.0) sec Sodium (137-145) mmol/L Chloride (98-107) mmol/L Carbon Dioxide (22-30) mmol/L Creatinine (0.66-1.25) mg/dL Glucose (74-99) mg/dL POC Glucose (mg/dL) 220 H (70-110) mg/dL Calcium (8.4-10.2) mg/dL TSH (0.465-4.680) mIU/L Microbiology - Last 24 Hours (Table) 02/02/23 04:44 Urine Culture - Preliminary Urine,Voided
[2023-02-02 20:44] LABS: Glucose,Whole Blood 252 mg/dL (70-110)
[2023-02-02] MEDS: QUEtiapine 200 MG TAB PO SCH (20:53)
[2023-02-02] MEDS: METOPROLOL TARTRATE 25 MG TAB PO SCH (20:53)
[2023-02-03 06:23] LABS: Basophils % (A) 0 %; Eosinophils % (A) 0 %; HCT 39.2 % (39.0-53.0); HGB 11.9 gm/dL (13.0-17.5); Hypochromasia Marked; Lymphocytes # (A) 0.2 k/uL (1.0-4.8); Lymphocytes % (A) 4 %; MCH 30.8 pg (25.0-35.0); MCHC 30.4 g/dL (31.0-37.0); MCV 101.3 fL (80.0-100.0); Macrocytosis Slight; Mean Platelet Volume 9.1; Monocytes # (A) 0.1 k/uL (0-1.0); Monocytes % (A) 3 %; Neutrophils # (A) 4.5 k/uL (1.3-7.7); Neutrophils % (A) 92 %; Platelet Count 143 k/uL (150-450); RBC 3.87 m/uL (4.30-5.90); RDW 14.3 % (11.5-15.5); WBC 4.9 k/uL (3.8-10.6)
[2023-02-03 06:29] LABS: African American GFR (CKD) >90 (>60 ml/min/1.73 sqM); Blood Urea Nitrogen 22 mg/dL (9-20); Calcium 7.8 mg/dL (8.4-10.2); Chloride 94 mmol/L (98-107); Glucose 166 mg/dL (74-99); Non-African American GFR(CKD) >90 (>60 ml/min/1.73 sqM); Potassium 4.5 mmol/L (3.5-5.1); Sodium 136 mmol/L (137-145)
[2023-02-03 06:35] LABS: Glucose,Whole Blood 186 mg/dL (70-110)
[2023-02-03] MEDS: DEXTROAMPHETAMINE PO SCH ×2 (06:35→17:31)
[2023-02-03] MEDS: AMPHETAMINE PO SCH ×2 (06:35→17:31)
[2023-02-03 06:36] LABS: Anion Gap 6 mmol/L; Carbon Dioxide 36 mmol/L (22-30)
[2023-02-03] MEDS: methylPREDNISolone SOD SUCCI 125 MG/2 ML VIAL IV SCH ×3 (06:38→17:06)
[2023-02-03] MEDS: INSULIN ASPART (NovoLOG) 100 UNIT/ML VIAL SQ SCH ×4 (06:39→21:25)
[2023-02-03] MEDS: SODIUM CHLORIDE 0.9% 1,000 ML IV SCH ×2 (06:43→17:39)
--- NOTE | 2023-02-03 06:53 | PN ---
PROGRESS NOTE DATE OF SERVICE: 02/02/2023 SUBJECTIVE: This is a 57-year-old gentleman admitted with COPD acute exacerbation and possible pneumonia, is being closely monitored. The patient is on BiPAP. The patient is confused. The patient tried to take the BiPAP out. Chest x-ray was reviewed and the patient is on broad-spectrum IV antibiotics. Pulmonary and Infectious Disease are following the patient closely. Cultures are negative so far. COVID-19 is also negative. The patient also had atrial flutter also. PAST MEDICAL HISTORY: Reviewed. REVIEW OF SYSTEMS: Could not be taken. CURRENT MEDICATIONS: Reviewed include Zosyn. Dose and rest of medications noted. PHYSICAL EXAMINATION: VITAL SIGNS: Pulse is 86, blood pressure 100/60, respirations 19. BiPAP settings are noted. HEENT: Conjunctivae normal. Oral mucosa moist. NECK: No JVD. CARDIOVASCULAR: S1, S2 muffled. RESPIRATIONS: Bilateral scattered rhonchi and expiratory wheezing. ABDOMEN: Soft, obese. LABORATORY DATA: Reviewed. CO2 is 41. ASSESSMENT: TSH is 0.499 and free T4 is normal. ASSESSMENT: 1. Chronic obstructive pulmonary disease acute exacerbation with acute hypoxic hypercarbic respiratory failure with possible acute bilateral pneumonia. 2. Atrial flutter with fast ventricular rate. 3. History of coronary artery disease. 4. Diabetes mellitus, type 2. 5. Hypertension. 6. History of coronary artery disease stent. 7. History of brain aneurysm. 8. Multiple medical issues. RECOMMENDATIONS AND DISCUSSION: Recommend to continue current medications, continue intensive bronchodilator treatment. Continue with steroids. Monitor blood sugars closely. Continue with antibiotics. Otherwise, closely follow with multiple consultants. Cardiology is also seeing the patient. The patient is also on IV heparin as well. 2D echo also noted. Further recommendations to follow. MMODL / IJN: [id number] /
[2023-02-03] MEDS: FORMOTEROL FUMARATE 20 MCG/2 ML NEBU INHALATION SCH ×2 (07:30→19:45)
[2023-02-03] MEDS: IPRATROPIUM-ALBUTEROL 3 ML NEB INHALATION SCH ×4 (07:30→19:46)
[2023-02-03] MEDS: BUDESONIDE 1 MG/2 ML NEBU INHALATION SCH ×2 (07:31→19:46)
--- NOTE | 2023-02-03 09:00 | P.PN ---
Subjective Progress Note Date: 02/03/23 I am seeing this patient today 02/02/2023 in new consultation in regard to ICU management for acute hypoxic and hypercapnic respiratory failure related to COPD exacerbation and new onset atrial flutter. Patient is a 57-year-old white male with past medical history significant for severe COPD with an FEV1 39% of predicted, chronic oxygen dependence normally maintained on 3 L nasal cannula, current 1-1/2 pack per day smoker, previous respiratory failure and mechanical ventilator dependence, coronary artery disease with previous stents to the LAD and RCA, polysubstance abuse, chronic back pain, and previous brain aneurysms. Patient was transferred from [facility] yesterday afternoon for worsening dyspnea and hypoxia. He was reportedly previously seen at the outside facility 5 days prior, and left AGAINST MEDICAL ADVICE, because he wanted to attend his brother's . He did return to [facility] for dyspnea and chest palpitations. He was found to be in atrial flutter. Initial workup at outside facility included a nonenhanced chest CT which showed no acute cardiopulmonary process. Patient was placed on the BiPAP and transferred to [facility]. On arrival, VBG showed a pCO2 of 103, pH of 7.31. Chest x-ray showed cardiomegaly without any significant cardiopulmonary disease/process. He denies any fever, chills, cough, chest pain. Denies sick contacts. He also denies any weight gain, lower extremity swelling, orthopnea, lightheadedness, syncope. Patient is currently resting in bed, on BiPAP with settings 12/6 and FiO2 50%. He is calm and tolerating the BiPAP. His tidal volumes are only 200-250 ML's, respiratory rate 20 breaths per minute, and IPAP was increased to 14. Patient currently has Cardizem infusing at 15 mg per hour and low intensity heparin infusion per protocol. Heart rhythm is atrial flutter. His heart rate was as high as 150 bpm on arrival, and currently more controlled, with a rate of 100- 115 bpm. He is negative for influenza, RSV, COVID-19. CBC on arrival was unremarkable. Empirically covered on Zosyn. Blood cultures are pending. He remains afebrile. BMP shows sodium 138, potassium 4.7, chloride 85, serum CO2 46, BUN 20, creatinine 0.77, glucose 139. Normal saline infusing at 75 mL per hour. D-dimer was 0.41. NT proBNP was elevated at 1410. Currently receiving a combination of budesonide inhalation, formoterol inhalation, DuoNeb's, and IV Solu-Medrol. Vital signs are stable. On today's evaluation of 02/03/2023, the patient is being seen for a follow-up. He is still lethargic. Arousable. He communicates effectively. His answering questions. He stated on BiPAP throughout the day yesterday at a pressures of 14/6 and the patient is currently off the BiPAP and he is on nasal cannula at 4 L. His to bronchospastic and wheezy and congested. He remains on a combination of bronchodilators and steroids. Note that the patient is chronically dependent on oxygen and he takes oxygen at 3 L at home. At the same time, the patient remains in atrial flutter. He remains on Cardizem drip at 15 mg and he was started also on beta blockers and currently is on metoprolol at a dose of 25 mg twice a day and within the process of gradually weaning down the Cardizem drip. Echocardiogram was done yesterday and the patient was found to have a left ventricular ejection fraction of around 45%. The patient had no significant valvular abnormalities. He did have some mild mitral regurgitation and aortic stenosis. He had dilatation of the right ventricle related to chronic lung disease and his right ventricular systolic pressure was 39 mmHg. He remains on IV heparin. The white cell count today's of 4.9 with a hemoglobin of 11.9 and a platelet count of 143, BUN is 22 with a creatinine of 0.7. Free T4 is normal at 0.9. Blood sugars are modestly elevated and the patient is on a sliding scale insulin coverage. He is on IV Zosyn as an empiric antibiotic coverage. Note that his pro calcitonin level at the time of admission was mildly elevated. His chest x-ray somewhat debilitated and the patient has a limited infiltrate/effusion left lung base. No other significant events overnight. No agitation. Mental status is adequate. Hemoglobin A1c is at 7.8. Objective - Vital Signs Vital signs: Vital Signs Temp 97.9 F 02/03/23 08:00 Pulse 140 H 02/03/23 08:00 Resp 17 02/03/23 08:00 BP 85/60 02/03/23 08:00 Pulse Ox 94 L 02/03/23 08:00 FiO2 50 02/03/23 04:53 Intake & Output 02/02/23 02/03/23 02/03/23 18:59 06:59 18:59 Intake Total 9765.902 0283.472 550 Output Total 650 1000 0 Balance 416.792 250.472 550 Weight 120.8 kg Intake: IV 900 900 75 Sodium Chloride 0.9% 1, 900 900 75 000 ml @ 75 mls/hr IV . [id number] [facility] Rx#:[id number] Intake, IV Titration 166.792 350.472 75 Amount Diltiazem 125 mg In 125 106.25 Sodium Chloride 0.9% 100 ml @ 10 MG/HR 10 mls/hr IV .[id number] [facility] Rx#: [id number] Heparin Sod,Pork in 0.45% 41.792 244.222 NaCl 25,000 unit In 0.45 % NaCl 1 250ml.bag @ 8.82 UNITS/KG/HR 10.002 mls/ hr IV .Q24H [facility] Rx#: [id number] Sodium Chloride 0.9% 1, 75 000 ml @ 75 mls/hr IV . [id number] [facility] Rx#:[id number] Oral 400 Output: Urine 650 1000 0 Other: Voiding Method Urinal Urinal # Voids 1 - Exam GENERAL EXAM: Alert, 57-year-old white male, on the 4 L nasal cannula HEAD: Normocephalic and atraumatic EYES: Normal reaction of pupils, equal size. NOSE: Clear with pink turbinates. THROAT: No erythema or exudates. NECK: No masses, no JVD. CHEST: No chest wall deformity. LUNGS: Equal air entry with expiratory wheezes throughout. no crackles, rhonchi or focal dullness. On BiPAP with settings 12/6 and FiO2 of 50%. No conversational dyspnea or accessory muscle use.. CVS: S1 and S2 normal with no audible murmur, irregular rhythm. No extra heart sounds ABDOMEN: Obese abdomen. No hepatosplenomegaly, active bowel sounds, no guarding or rigidity. SPINE: No scoliosis or deformity SKIN: No rashes CENTRAL NERVOUS SYSTEM: No focal deficits, tone is normal in all 4 extremities. EXTREMITIES: There is no peripheral edema, clubbing, or cyanosis. Peripheral pulses are intact. - Labs CBC & Chem 7: 02/03/23 05:38 02/03/23 05:38 Labs: Abnormal Lab Results - Last 24 Hours (Table) 02/02/23 02/02/23 02/02/23 Range/Units 10:34 11:41 16:26 RBC (4.30-5.90) m/uL Hgb (13.0-17.5) gm/dL MCV (80.0-100.0) fL MCHC (31.0-37.0) g/dL Plt Count (150-450) k/uL Lymphocytes # (1.0-4.8) k/uL APTT 53.8 H (22.0-30.0) sec Sodium (137-145) mmol/L Chloride (98-107) mmol/L Carbon Dioxide (22-30) mmol/L BUN (9-20) mg/dL Glucose (74-99) mg/dL POC Glucose (mg/dL) 157 H 220 H (70-110) mg/dL Calcium (8.4-10.2) mg/dL 02/02/23 02/03/23 02/03/23 Range/Units 20:42 05:38 05:38 RBC 3.87 L (4.30-5.90) m/uL Hgb 11.9 L (13.0-17.5) gm/dL MCV 101.3 H (80.0-100.0) fL MCHC 30.4 L (31.0-37.0) g/dL Plt Count 143 L (150-450) k/uL Lymphocytes # 0.2 L (1.0-4.8) k/uL APTT 59.8 H (22.0-30.0) sec Sodium (137-145) mmol/L Chloride (98-107) mmol/L Carbon Dioxide (22-30) mmol/L BUN (9-20) mg/dL Glucose (74-99) mg/dL POC Glucose (mg/dL) 252 H (70-110) mg/dL Calcium (8.4-10.2) mg/dL 02/03/23 02/03/23 Range/Units 05:38 06:34 RBC (4.30-5.90) m/uL Hgb (13.0-17.5) gm/dL MCV (80.0-100.0) fL MCHC (31.0-37.0) g/dL Plt Count (150-450) k/uL Lymphocytes # (1.0-4.8) k/uL APTT (22.0-30.0) sec Sodium 136 L (137-145) mmol/L Chloride 94 L (98-107) mmol/L Carbon Dioxide 36 H (22-30) mmol/L BUN 22 H (9-20) mg/dL Glucose 166 H (74-99) mg/dL POC Glucose (mg/dL) 186 H (70-110) mg/dL Calcium 7.8 L (8.4-10.2) mg/dL Microbiology - Last 24 Hours (Table) 02/02/23 04:44 Urine Culture - Preliminary Urine,Voided Assessment and Plan Assessment: New-onset atrial flutter, started on Cardizem drip at 15 mg an hour in addition to IV heparin. Mild systolic heart failure with an ejection fraction of 45% Acute COPD exacerbation. Chest x-ray showed no obvious focal consolidation or pneumonia. Negative for COVID-19, influenza, RSV. The patient is currently off the BiPAP and transitioned to 4 L of oxygen nasal cannula Acute on chronic hypoxemic and hypercapnic respiratory failure secondary to above. Currently off BiPAP although he can still use BiPAP on and off during the day and overnight. He was transitioned to 4 L O2 nasal cannula History of previous respiratory failure and ventilator dependence related to COPD exacerbation Coronary artery disease with previous stents to the LAD and RCA Hypertension Hyperlipidemia Morbid Obesity with a BMI of 41 History of polysubstance abuse, on Suboxone outpatient Chronic back pain Chronic nicotine dependence, Current 1-1/2 pack per day smoker History of brain aneurysm Plan: Continue ventilator support with BiPAP on and off during the day at the same settings Keep the patient on 4 L nasal cannula Continue bronchodilators and steroids Continue combination Perforomist and Pulmicort updrafts twice a day Continue IV Zosyn Agree on starting metoprolol 25 mg twice a day Gradually wean off the Cardizem and discontinue possible, a lower heart rate between 100-110 TSH is within normal limits Offered diet Keep the patient intensive care unit. He remains bronchospastic and wheezy and is still having issues with his ongoing atrial flutter. May transitioned this patient to an oral anticoagulants. We'll discuss this with cardiology. We'll continue to follow, critical care evaluation > 30min Time with Patient: Greater than 30
--- NOTE | 2023-02-03 09:41 | XR ---
EXAMINATION TYPE: XR chest 1V portable DATE OF EXAM: 02/03/2023 COMPARISON: 02/02/2023 INDICATION: Dyspnea TECHNIQUE: Single frontal view of the chest is obtained. FINDINGS: The heart size is normal. The pulmonary vasculature is somewhat prominent. Small left pleural effusion is present. There is mild opacification of the left lung compared to the right. Correlate for atypical pulmonary edema. IMPRESSION: 1. Mild opacification through the left lung with a small left pleural effusion. Consider atypical pul monary edema within the differential. Follow-up is recommended
[2023-02-03] MEDS: TAMSULOSIN 0.4 MG CAP.ER.24H PO SCH (09:46)
[2023-02-03] MEDS: ASPIRIN 81 MG PO SCH (09:46)
[2023-02-03] MEDS: APIXABAN 5 MG TAB PO SCH ×2 (09:47→21:24)
[2023-02-03] MEDS: ATORVASTATIN 40 MG TAB PO SCH (09:47)
[2023-02-03] MEDS: LORazepam 1 MG TAB PO PRN ×2 (09:47→15:19)
[2023-02-03] MEDS: GABAPENTIN 300 MG CAP PO SCH ×3 (09:47→21:24)
[2023-02-03] MEDS: PANTOPRAZOLE 40 MG/10 ML VIAL IVP SCH (09:47)
[2023-02-03] MEDS: METOPROLOL TARTRATE 25 MG TAB PO SCH ×3 (09:47→21:25)
[2023-02-03] MEDS: NICOTINE 21MG/24HR PATCH TRANSDERM SCH (09:47)
[2023-02-03] MEDS: SUBOXONE PO SCH ×2 (09:48→21:44)
[2023-02-03] MEDS: PIPERACILLIN-TAZOBACTAM 3.375 GM in SODIUM CHLORIDE 0.9% 100 ML IVPB SCH ×2 (09:48→17:07)
[2023-02-03] MEDS: NON FORMULARY DRUG (Vilazodone Hcl [Viibryd] 20 MG Tablet) PO SCH (09:49)
[2023-02-03] MEDS: lisinopriL 20 MG TAB PO SCH (09:49)
--- NOTE | 2023-02-03 09:59 | P.PN ---
Subjective Progress Note Date: 02/03/23 The patient is a 57-year-old male who presented to the hospital with increased shortness of breath. He was seen 5 days prior at an outside facility but left AGAINST MEDICAL ADVICE. On arrival he was found to be in acute hypoxic respiratory failure and was placed on BiPAP. Cardiology was consulted for A. fib with RVR. He was started on a Cardizem drip and maxed out her rate control. Yesterday he was started on low-dose beta jose. The patient was interviewed and examined lying in bed. He had just ambulated to the restroom and therefore was labored. Pulse ox was in the mid 80s. He denies any chest pain or chest pressure. No dizziness or lightheadedness with ambulation. GENERAL: Ill-appearing, obese male in mild respiratory distress. NECK: Supple without JVD or thyromegaly. LUNGS: Breath sounds clear to auscultation bilaterally. Respiration equal and mildly labored. Bilateral rhonchi. HEART: Irregular rate and rhythm without murmurs, rubs or gallops. S1 and S2 heard. EXTREMITIES: Normal range of motion, no edema. No clubbing or cyanosis. Peripheral pulses intact and strong. VITALS: Blood pressure 85/60, pulse 142, respiratory rate 22, SpO2 80% on 4 L nasal cannula TELEMETRY: A. fib with RVR. Resting rates in the 120's with elevation up to 150s with ambulation. IMPRESSION: A. fib with RVR Acute hypoxic respiratory failure Current smoker History of CAD History hypertension History of hyperlipidemia Morbid obesity, BMI 41 PLAN: Increase metoprolol to 3 times per day Wean Cardizem drip as tolerated Aggressive pulmonary hygiene Further recommendations based on clinical course I am dictating on behalf of Dr Héctor Baltazar's history/physical and assessment/plan. Objective - Vital Signs Vital signs: Vital Signs Temp 97.9 F 02/03/23 08:00 Pulse 140 H 02/03/23 08:00 Resp 17 02/03/23 08:00 BP 85/60 02/03/23 08:00 Pulse Ox 94 L 02/03/23 08:00 FiO2 50 02/03/23 04:53 Intake & Output 02/02/23 02/03/23 02/03/23 18:59 06:59 18:59 Intake Total 7852.438 6748.472 550 Output Total 650 1000 0 Balance 416.792 250.472 550 Weight 120.8 kg Intake: IV 900 900 75 Sodium Chloride 0.9% 1, 900 900 75 000 ml @ 75 mls/hr IV . [id number] [facility] Rx#:[id number] Intake, IV Titration 166.792 350.472 75 Amount Diltiazem 125 mg In 125 106.25 Sodium Chloride 0.9% 100 ml @ 10 MG/HR 10 mls/hr IV .[id number] [facility] Rx#: [id number] Heparin Sod,Pork in 0.45% 41.792 244.222 NaCl 25,000 unit In 0.45 % NaCl 1 250ml.bag @ 8.82 UNITS/KG/HR 10.002 mls/ hr IV .Q24H [facility] Rx#: [id number] Sodium Chloride 0.9% 1, 75 000 ml @ 75 mls/hr IV . [id number] [facility] Rx#:[id number] Oral 400 Output: Urine 650 1000 0 Other: Voiding Method Urinal Urinal # Voids 1 - Labs CBC & Chem 7: 02/03/23 05:38 02/03/23 05:38 Labs: Abnormal Lab Results - Last 24 Hours (Table) 02/02/23 02/02/23 02/02/23 Range/Units 10:34 11:41 16:26 RBC (4.30-5.90) m/uL Hgb (13.0-17.5) gm/dL MCV (80.0-100.0) fL MCHC (31.0-37.0) g/dL Plt Count (150-450) k/uL Lymphocytes # (1.0-4.8) k/uL APTT 53.8 H (22.0-30.0) sec Sodium (137-145) mmol/L Chloride (98-107) mmol/L Carbon Dioxide (22-30) mmol/L BUN (9-20) mg/dL Glucose (74-99) mg/dL POC Glucose (mg/dL) 157 H 220 H (70-110) mg/dL Calcium (8.4-10.2) mg/dL 02/02/23 02/03/23 02/03/23 Range/Units 20:42 05:38 05:38 RBC 3.87 L (4.30-5.90) m/uL Hgb 11.9 L (13.0-17.5) gm/dL MCV 101.3 H (80.0-100.0) fL MCHC 30.4 L (31.0-37.0) g/dL Plt Count 143 L (150-450) k/uL Lymphocytes # 0.2 L (1.0-4.8) k/uL APTT 59.8 H (22.0-30.0) sec Sodium (137-145) mmol/L Chloride (98-107) mmol/L Carbon Dioxide (22-30) mmol/L BUN (9-20) mg/dL Glucose (74-99) mg/dL POC Glucose (mg/dL) 252 H (70-110) mg/dL Calcium (8.4-10.2) mg/dL 02/03/23 02/03/23 Range/Units 05:38 06:34 RBC (4.30-5.90) m/uL Hgb (13.0-17.5) gm/dL MCV (80.0-100.0) fL MCHC (31.0-37.0) g/dL Plt Count (150-450) k/uL Lymphocytes # (1.0-4.8) k/uL APTT (22.0-30.0) sec Sodium 136 L (137-145) mmol/L Chloride 94 L (98-107) mmol/L Carbon Dioxide 36 H (22-30) mmol/L BUN 22 H (9-20) mg/dL Glucose 166 H (74-99) mg/dL POC Glucose (mg/dL) 186 H (70-110) mg/dL Calcium 7.8 L (8.4-10.2) mg/dL Microbiology - Last 24 Hours (Table) 02/02/23 04:44 Urine Culture - Preliminary Urine,Voided
[2023-02-03] MEDS: DILTIAZEM 125 MG in SODIUM CHLORIDE 0.9% 100 ML IV SCH ×2 (10:16→23:29)
[2023-02-03 11:27] LABS: Glucose,Whole Blood 157 mg/dL (70-110)
--- NOTE | 2023-02-03 12:28 | P.PN ---
Subjective Progress Note Date: 02/03/23 Principal diagnosis: Possible pneumonia Patient is a 57-year-old male with a past medical history significant for COPD apparently the patient was recently admitted to the [facility] about 5 days ago and the patient left AGAINST MEDICAL ADVICE patient subsequently presenting back to the hospital with worsening shortness of breath and hypoxemia patient was noted to be in new onset atrial flutter, patient did have a CT at the outside facility and reported negative for cardiopulmonary disease and the patient was subsequently transferred to [facility] for management of his atrial fibrillation and rapid ventricular response On today's evaluation that is 02/03/2023, the patient remains to be afebrile, the patient is off BiPAP this morning and is breathing comfortably on a 4 L nasal cannula, patient denies having any chest pain did have a cough not br inging up any sputum no vomiting no abdominal pain or diarrhea Objective - Vital Signs Vital signs: Vital Signs Temp 97.9 F 02/03/23 08:00 Pulse 105 H 02/03/23 11:00 Resp 4 L 02/03/23 11:00 BP 110/83 02/03/23 11:00 Pulse Ox 91 L 02/03/23 11:00 FiO2 50 02/03/23 04:53 Intake & Output 02/02/23 02/03/23 02/03/23 18:59 06:59 18:59 Intake Total 4830.550 0139.472 1200 Output Total 650 1000 0 Balance 416.792 119.897 5869 Weight 120.8 kg Intake: IV 900 900 75 Sodium Chloride 0.9% 1, 900 900 75 000 ml @ 75 mls/hr IV . [id number] [facility] Rx#:[id number] Intake, IV Titration 166.792 350.472 525 Amount Diltiazem 125 mg In 125 106.25 125 Sodium Chloride 0.9% 100 ml @ 10 MG/HR 10 mls/hr IV .[id number] [facility] Rx#: [id number] Heparin Sod,Pork in 0.45% 41.792 244.222 NaCl 25,000 unit In 0.45 % NaCl 1 250ml.bag @ 8.82 UNITS/KG/HR 10.002 mls/ hr IV .Q24H [facility] Rx#: [id number] Piperacillin-Tazobactam 3 100 .375 gm In Sodium Chloride 0.9% 100 ml @ 25 mls/hr IVPB Q8HR [facility] Rx# :[id number] Sodium Chloride 0.9% 1, 300 000 ml @ 75 mls/hr IV . [id number] [facility] Rx#:[id number] Oral 600 Output: Urine 650 1000 0 Other: Voiding Method Urinal Urinal # Voids 1 - Exam GENERAL DESCRIPTION: Middle-age male lying in bed in no distress RESPIRATORY SYSTEM: Unlabored breathing , decreased intensity of breath sounds HEART: S1 S2 regular rate and rhythm , ABDOMEN: Soft , no tenderness EXTREMITIES: No edema feet - Labs CBC & Chem 7: 02/03/23 05:38 02/03/23 05:38 Labs: Abnormal Lab Results - Last 24 Hours (Table) 02/02/23 02/02/23 02/02/23 Range/Units 11:41 16:26 20:42 RBC (4.30-5.90) m/uL Hgb (13.0-17.5) gm/dL MCV (80.0-100.0) fL MCHC (31.0-37.0) g/dL Plt Count (150-450) k/uL Lymphocytes # (1.0-4.8) k/uL APTT (22.0-30.0) sec Sodium (137-145) mmol/L Chloride (98-107) mmol/L Carbon Dioxide (22-30) mmol/L BUN (9-20) mg/dL Glucose (74-99) mg/dL POC Glucose (mg/dL) 157 H 220 H 252 H (70-110) mg/dL Calcium (8.4-10.2) mg/dL 02/03/23 02/03/23 02/03/23 Range/Units 05:38 05:38 05:38 RBC 3.87 L (4.30-5.90) m/uL Hgb 11.9 L (13.0-17.5) gm/dL MCV 101.3 H (80.0-100.0) fL MCHC 30.4 L (31.0-37.0) g/dL Plt Count 143 L (150-450) k/uL Lymphocytes # 0.2 L (1.0-4.8) k/uL APTT 59.8 H (22.0-30.0) sec Sodium 136 L (137-145) mmol/L Chloride 94 L (98-107) mmol/L Carbon Dioxide 36 H (22-30) mmol/L BUN 22 H (9-20) mg/dL Glucose 166 H (74-99) mg/dL POC Glucose (mg/dL) (70-110) mg/dL Calcium 7.8 L (8.4-10.2) mg/dL 02/03/23 Range/Units 06:34 RBC (4.30-5.90) m/uL Hgb (13.0-17.5) gm/dL MCV (80.0-100.0) fL MCHC (31.0-37.0) g/dL Plt Count (150-450) k/uL Lymphocytes # (1.0-4.8) k/uL APTT (22.0-30.0) sec Sodium (137-145) mmol/L Chloride (98-107) mmol/L Carbon Dioxide (22-30) mmol/L BUN (9-20) mg/dL Glucose (74-99) mg/dL POC Glucose (mg/dL) 186 H (70-110) mg/dL Calcium (8.4-10.2) mg/dL Microbiology - Last 24 Hours (Table) 02/02/23 04:44 Urine Culture - Final Urine,Voided 02/01/23 19:22 Blood Culture - Preliminary Blood Assessment and Plan (1) Acute exacerbation of chronic obstructive pulmonary disease Current Visit: Yes Status: Acute Code(s): J44.1 - CHRONIC OBSTRUCTIVE PULMONARY DISEASE W (ACUTE) EXACERBATION SNOMED Code(s): 312480927 Plan: 1patient presented to hospital with increasing shortness of breath which is likely multifactorial in this patient with a COPD exacerbation with a tracheobronchitis and concern for possible worsening with atrial fibrillation and rapid ventricular response, clinically not behaving as pneumonia as the patient did not have any fever White count has been normal chest x-ray no acute infiltrate 2-patient did have normal procalcitonin however repeat x-ray today shows mostly left-sided infiltrated the question of possible pneumonia not entirely excluded on Zosyn to continue try to obtain a sputum and monitor his clinical course closely Time with Patient: Less than 30
--- NOTE | 2023-02-03 13:31 | CT ---
EXAMINATION TYPE: CT chest wo con CT DLP: 939.4 mGycm, Automated exposure control for dose reduction was used. DATE OF EXAM: 02/03/2023 1:22 PM COMPARISON: CT chest 02/01/2023, chest radiograph 02/03/2023. CLINICAL INDICATION:Male, 57 years old with history of PNEUMONIA LEFT; PHH, Pneumonia left side TECHNIQUE: Multiple axial images were obtained through the chest without IV contrast. Lack of IV or o ral contrast limits evaluation of solid and hollow organ viscera. . Coronal and sagittal reformats re viewed. FINDINGS: LUNGS/ PLEURA: Development of trace bilateral pleural effusions with associated atelectasis. Developm ent of left upper lobe consolidation with atelectasis. Stable right midlung 6 mm groundglass pulmonar y nodule. AIRWAY: There is abrupt cut off of the left upper lobe bronchus. . HEART: Mildly enlarged. No pericardial effusion. Moderate coronary arterial calcifications. MEDIASTINUM: Stable mildly prominent mediastinal lymph nodes. VASCULATURE: No aortic aneurysm. MUSCULOSKELETAL: Mild disc degeneration changes are present throughout the thoracolumbar spine. No ac dutch osseous adenopathy. SOFT TISSUES/LYMPH NODES: Unremarkable. LOWER NECK: No significant findings. UPPER ABDOMEN: No significant findings. IMPRESSION: 1. Development of trace bilateral pleural effusions with left upper lobe atelectasis and consolidati on. Abrupt cut off of the left upper lobe bronchus. This may be related to pneumonia and/or mucus plu gging. Continued follow-up is recommended. 2. Right midlung 6 mm ground glass nodule. Follow-up CT chest examination in 6-12 months is recommen ded. 3. Few stable prominent mediastinal lymph nodes, likely reactive.
[2023-02-03] MEDS: SUBOXONE SUBLINGUAL SCH (15:15)
[2023-02-03 16:19] LABS: Glucose,Whole Blood 250 mg/dL (70-110)
[2023-02-03 20:37] LABS: Glucose,Whole Blood 168 mg/dL (70-110)
[2023-02-03] MEDS: QUEtiapine 200 MG TAB PO SCH (21:44)
--- NOTE | 2023-02-04 00:41 | PN ---
PROGRESS NOTE DATE OF SERVICE: 02/03/2023 SUBJECTIVE: This is a 57-year-old gentleman who was admitted with COPD exacerbation and acute hypoxic respiratory failure. He is able to breathe without BiPAP at this time. The patient is still monitored in the ICU. The most recent chest x-ray which I reviewed showed significant opacities on the left side. PAST MEDICAL HISTORY: Reviewed. REVIEW OF SYSTEMS: A 14-point review is negative except as mentioned earlier. CURRENT MEDICATIONS: Reviewed. PHYSICAL EXAMINATION: VITAL SIGNS: Pulse is 112, blood pressure is 73/56, respiration 23. HEENT: Conjunctivae normal. NECK: No jugular venous distention. CARDIOVASCULAR: S1, S2 muffled. RESPIRATIONS: Diminished at the bases, few scattered rhonchi and crackles. ABDOMEN: Soft. NERVOUS SYSTEM: No focal deficits. LABORATORY DATA: Reviewed. ASSESSMENT: 1. Chronic obstructive pulmonary disease acute exacerbation with acute hypoxic respiratory failure with possible acute bilateral pneumonia. 2. Atrial flutter with fast ventricular rate. 3. History of coronary artery disease. 4. Diabetes mellitus type 2. 5. Hypertension. 6. History of CAD stent. 7. History of brain aneurysm. 8. Multiple medical issues. RECOMMENDATIONS AND DISCUSSION: Recommended to continue current medications, continue symptomatic treatment. Otherwise at this time, I would also recommend a CT scan of the chest without any contrast. We will continue to monitor. Guarded prognosis. Further recommendations to follow. See orders for details. MMODL / IJN: [id number] /
[2023-02-04] MEDS: PIPERACILLIN-TAZOBACTAM 3.375 GM in SODIUM CHLORIDE 0.9% 100 ML IVPB SCH ×3 (01:22→16:22)
[2023-02-04] MEDS: methylPREDNISolone SOD SUCCI 125 MG/2 ML VIAL IV SCH ×4 (01:23→18:24)
[2023-02-04] MEDS: LORazepam 1 MG TAB PO PRN (03:10)
[2023-02-04 05:17] LABS: Basophils % (A) 0 %; Eosinophils % (A) 0 %; HGB 12.5 gm/dL (13.0-17.5); Hypochromasia Marked; Lymphocytes # (A) 0.2 k/uL (1.0-4.8); Lymphocytes % (A) 4 %; MCH 30.3 pg (25.0-35.0); MCHC 29.7 g/dL (31.0-37.0); MCV 101.9 fL (80.0-100.0); Macrocytosis Slight; Mean Platelet Volume 8.9; Monocytes # (A) 0.1 k/uL (0-1.0); Monocytes % (A) 2 %; Neutrophils % (A) 94 %; Platelet Count 135 k/uL (150-450); RBC 4.12 m/uL (4.30-5.90); RDW 14.4 % (11.5-15.5); WBC 4.2 k/uL (3.8-10.6)
[2023-02-04 05:31] LABS: ALT 43 U/L (4-49); AST 21 U/L (17-59); African American GFR (CKD) >90 (>60 ml/min/1.73 sqM); Albumin 3.3 g/dL (3.5-5.0); Alkaline Phosphatase 47 U/L (38-126); Anion Gap 3 mmol/L; Blood Urea Nitrogen 26 mg/dL (9-20); Calcium 7.9 mg/dL (8.4-10.2); Carbon Dioxide 38 mmol/L (22-30); Chloride 94 mmol/L (98-107); Glucose 160 mg/dL (74-99); Non-African American GFR(CKD) >90 (>60 ml/min/1.73 sqM); Potassium 4.6 mmol/L (3.5-5.1); Sodium 135 mmol/L (137-145); Total Bilirubin 0.7 mg/dL (0.2-1.3); Total Protein 5.5 g/dL (6.3-8.2)
[2023-02-04] MEDS ORDERED: HALOPERIDOL LACTATE 5 MG/ML 1 ML VIAL IVP ONE (06:30)
--- NOTE | 2023-02-04 06:58 | XR ---
EXAMINATION TYPE: XR chest 1V portable DATE OF EXAM: 02/04/2023 5:19 AM COMPARISON: Chest radiographs from 02/04/2023, CT chest 02/03/2023. TECHNIQUE: XR chest 1V portable Portable AP radiograph of the chest. CLINICAL INDICATION:Male, 57 years old with history of dyspnea; FINDINGS: Lungs/Pleura: Blunting of the left costophrenic angle. Patchy airspace opacities throughout the left lung. Pulmonary vascularity: Unremarkable. Heart/mediastinum: Cardiomediastinal silhouette is unremarkable. Musculoskeletal: No acute osseous pathology. IMPRESSION: Overall similar appearance of patchy airspace opacity throughout the left lung with small left pleura l effusion. Findings suggest pneumonia.
[2023-02-04 07:06] LABS: Glucose,Whole Blood 154 mg/dL (70-110)
[2023-02-04] MEDS: IPRATROPIUM-ALBUTEROL 3 ML NEB INHALATION SCH ×4 (07:56→19:57)
[2023-02-04] MEDS: FORMOTEROL FUMARATE 20 MCG/2 ML NEBU INHALATION SCH ×2 (07:56→19:57)
[2023-02-04] MEDS: BUDESONIDE 1 MG/2 ML NEBU INHALATION SCH ×2 (07:56→19:57)
[2023-02-04] MEDS ORDERED: DEXTROSE 5% IN WATER 250 ML with AMIODARONE 300 MG IV ONE (07:57)
[2023-02-04] MEDS: AMPHETAMINE PO SCH ×2 (07:58→16:42)
[2023-02-04] MEDS: DEXTROAMPHETAMINE PO SCH ×2 (07:58→16:42)
[2023-02-04] MEDS: VERAPAMIL 80 MG TAB PO SCH ×3 (07:58→20:13)
--- NOTE | 2023-02-04 08:02 | P.PN ---
Subjective Progress Note Date: 02/04/23 I am seeing this patient today 02/02/2023 in new consultation in regard to ICU management for acute hypoxic and hypercapnic respiratory failure related to COPD exacerbation and new onset atrial flutter. Patient is a 57-year-old white male with past medical history significant for severe COPD with an FEV1 39% of predicted, chronic oxygen dependence normally maintained on 3 L nasal cannula, current 1-1/2 pack per day smoker, previous respiratory failure and mechanical ventilator dependence, coronary artery disease with previous stents to the LAD and RCA, polysubstance abuse, chronic back pain, and previous brain aneurysms. Patient was transferred from [facility] yesterday afternoon for worsening dyspnea and hypoxia. He was reportedly previously seen at the outside facility 5 days prior, and left AGAINST MEDICAL ADVICE, because he wanted to attend his brother's . He did return to [facility] for dyspnea and chest palpitations. He was found to be in atrial flutter. Initial workup at outside facility included a nonenhanced chest CT which showed no acute cardiopulmonary process. Patient was placed on the BiPAP and transferred to [facility]. On arrival, VBG showed a pCO2 of 103, pH of 7.31. Chest x-ray showed cardiomegaly without any significant cardiopulmonary disease/process. He denies any fever, chills, cough, chest pain. Denies sick contacts. He also denies any weight gain, lower extremity swelling, orthopnea, lightheadedness, syncope. Patient is currently resting in bed, on BiPAP with settings 12/6 and FiO2 50%. He is calm and tolerating the BiPAP. His tidal volumes are only 200-250 ML's, respiratory rate 20 breaths per minute, and IPAP was increased to 14. Patient currently has Cardizem infusing at 15 mg per hour and low intensity heparin infusion per protocol. Heart rhythm is atrial flutter. His heart rate was as high as 150 bpm on arrival, and currently more controlled, with a rate of 100- 115 bpm. He is negative for influenza, RSV, COVID-19. CBC on arrival was unremarkable. Empirically covered on Zosyn. Blood cultures are pending. He remains afebrile. BMP shows sodium 138, potassium 4.7, chloride 85, serum CO2 46, BUN 20, creatinine 0.77, glucose 139. Normal saline infusing at 75 mL per hour. D-dimer was 0.41. NT proBNP was elevated at 1410. Currently receiving a combination of budesonide inhalation, formoterol inhalation, DuoNeb's, and IV Solu-Medrol. Vital signs are stable. On today's evaluation of 02/03/2023, the patient is being seen for a follow-up. He is still lethargic. Arousable. He communicates effectively. His answering questions. He stated on BiPAP throughout the day yesterday at a pressures of 14/6 and the patient is currently off the BiPAP and he is on nasal cannula at 4 L. His to bronchospastic and wheezy and congested. He remains on a combination of bronchodilators and steroids. Note that the patient is chronically dependent on oxygen and he takes oxygen at 3 L at home. At the same time, the patient remains in atrial flutter. He remains on Cardizem drip at 15 mg and he was started also on beta blockers and currently is on metoprolol at a dose of 25 mg twice a day and within the process of gradually weaning down the Cardizem drip. Echocardiogram was done yesterday and the patient was found to have a left ventricular ejection fraction of around 45%. The patient had no significant valvular abnormalities. He did have some mild mitral regurgitation and aortic stenosis. He had dilatation of the right ventricle related to chronic lung disease and his right ventricular systolic pressure was 39 mmHg. He remains on IV heparin. The white cell count today's of 4.9 with a hemoglobin of 11.9 and a platelet count of 143, BUN is 22 with a creatinine of 0.7. Free T4 is normal at 0.9. Blood sugars are modestly elevated and the patient is on a sliding scale insulin coverage. He is on IV Zosyn as an empiric antibiotic coverage. Note that his pro calcitonin level at the time of admission was mildly elevated. His chest x-ray somewhat debilitated and the patient has a limited infiltrate/effusion left lung base. No other significant events overnight. No agitation. Mental status is adequate. Hemoglobin A1c is at 7.8. On 02/04/2023, the patient is being seen for a follow-up. He seems to be much more awake compared to yesterday and less lethargic. He is slightly unreasonable and he wants to go home as he states that he lives [place] the street from the hospital. Nevertheless, he is not healthy enough or stable enough to be discharged out of the intensive care unit. The patient is currently off the BiPAP. He was on a BiPAP throughout the night and he was taken off the BiPAP and currently is on oxygen at 4 L. His last rhonchus spastic and wheezing compared to yesterday. He is to be less short of breath and the breathing is more comfortable. However, he has an ongoing issue with atrial flutter. He remains in flutter 221 with a rapid heart rate of 160. Overnight, cardiology has been involved and the patient was given verapamil donor relations officer in combination with metoprolol and the patient was also maintained on Cardizem at 15 mg an hour. Unfortunately, no response. He continues to be tachycardic. He is on anti-cognition with Eliquis. He is on IV fluids with normal saline at rate of 75 mL an hour. Adequate urine output. Blood work from today shows a white cell count of 4.2, hemoglobin 12.5, platelet count of 135, knee and is a 26 with a creatinine of 0.7 and sodium level is at 135. He remains on bronchodilators. He remains on IV Solu-Medrol 60 mg every 6 hours. He was given Seroquel 200 mg at bedtime as of yesterday to improve his agitation/restlessness/delirium. He remains on empiric antibiotic coverage with IV Zosyn. As mentioned, is kept on aspirin and anticoagulation with Eliquis was started yesterday. He is following commands and answering questions. No focal neurological deficits. Objective - Vital Signs Vital signs: Vital Signs Temp 97.5 F L 02/04/23 04:00 Pulse 158 H 02/04/23 07:00 Resp 13 02/04/23 07:00 BP 121/82 02/04/23 07:00 Pulse Ox 95 02/04/23 07:00 FiO2 50 02/04/23 07:47 Intake & Output 02/03/23 02/04/23 02/04/23 18:59 06:59 18:59 Intake Total 2702.167 2421.584 75 Output Total 800 2065 0 Balance 1902.167 356.584 75 Weight 123.3 kg Intake: IV 75 925 75 Piperacillin-Tazobactam 3 100 .375 gm In Sodium Chloride 0.9% 100 ml @ 25 mls/hr IVPB Q8HR [facility] Rx# :[id number] Sodium Chloride 0.9% 1, 75 825 75 000 ml @ 75 mls/hr IV . [id number] [facility] Rx#:[id number] Intake, IV Titration 1227.167 176.584 Amount Diltiazem 125 mg In 202.167 101.584 Sodium Chloride 0.9% 100 ml @ 10 MG/HR 10 mls/hr IV .[id number] [facility] Rx#: [id number] Piperacillin-Tazobactam 3 200 .375 gm In Sodium Chloride 0.9% 100 ml @ 25 mls/hr IVPB Q8HR [facility] Rx# :[id number] Sodium Chloride 0.9% 1, 825 75 000 ml @ 75 mls/hr IV . [id number] [facility] Rx#:[id number] Oral 1400 1320 Output: Urine 800 2065 0 Other: Voiding Method Urinal - Exam GENERAL EXAM: Alert, 57-year-old white male, on the 4 L nasal cannula HEAD: Normocephalic and atraumatic EYES: Normal reaction of pupils, equal size. NOSE: Clear with pink turbinates. THROAT: No erythema or exudates. NECK: No masses, no JVD. CHEST: No chest wall deformity. LUNGS: Equal air entry with expiratory wheezes throughout. no crackles, rhonchi or focal dullness. On 4 L of oxygen by nasal cannula and the patient is less short of breath unless bronchus spastic and wheezing compared to yesterday CVS: S1 and S2 normal with no audible murmur, ipatient is currently tachycardic a flutter at the rate of 160 ABDOMEN: Obese abdomen. No hepatosplenomegaly, active bowel sounds, no guarding or rigidity. SPINE: No scoliosis or deformity SKIN: No rashes CENTRAL NERVOUS SYSTEM: No focal deficits, tone is normal in all 4 extremities. EXTREMITIES: There is no peripheral edema, clubbing, or cyanosis. Peripheral pulses are intact. - Labs CBC & Chem 7: 02/04/23 04:50 02/04/23 04:50 Labs: Abnormal Lab Results - Last 24 Hours (Table) 02/03/23 02/03/23 02/03/23 Range/Units 11:25 16:18 20:36 RBC (4.30-5.90) m/uL Hgb (13.0-17.5) gm/dL MCV (80.0-100.0) fL MCHC (31.0-37.0) g/dL Plt Count (150-450) k/uL Lymphocytes # (1.0-4.8) k/uL Sodium (137-145) mmol/L Chloride (98-107) mmol/L Carbon Dioxide (22-30) mmol/L BUN (9-20) mg/dL Glucose (74-99) mg/dL POC Glucose (mg/dL) 157 H 250 H 168 H (70-110) mg/dL Calcium (8.4-10.2) mg/dL Total Protein (6.3-8.2) g/dL Albumin (3.5-5.0) g/dL 02/04/23 02/04/23 02/04/23 Range/Units 04:50 04:50 07:05 RBC 4.12 L (4.30-5.90) m/uL Hgb 12.5 L (13.0-17.5) gm/dL MCV 101.9 H (80.0-100.0) fL MCHC 29.7 L (31.0-37.0) g/dL Plt Count 135 L (150-450) k/uL Lymphocytes # 0.2 L (1.0-4.8) k/uL Sodium 135 L (137-145) mmol/L Chloride 94 L (98-107) mmol/L Carbon Dioxide 38 H (22-30) mmol/L BUN 26 H (9-20) mg/dL Glucose 160 H (74-99) mg/dL POC Glucose (mg/dL) 154 H (70-110) mg/dL Calcium 7.9 L (8.4-10.2) mg/dL Total Protein 5.5 L (6.3-8.2) g/dL Albumin 3.3 L (3.5-5.0) g/dL Microbiology - Last 24 Hours (Table) 02/02/23 04:44 Urine Culture - Final Urine,Voided 02/01/23 19:22 Blood Culture - Preliminary Blood Assessment and Plan Assessment: New-onset atrial flutter, and the patient continues to be persistent flutter, not responsive to Cardizem and metoprolol. Currently on Cardizem 15 mg/h and metoprolol at a dose of 25 by mouth 3 times a day . Hemodynamically stable. Mild systolic heart failure with an ejection fraction of 45% Acute COPD exacerbation. Chest x-ray showed no obvious focal consolidation or pneumonia. Negative for COVID-19, influenza, RSV. The patient is currently off the BiPAP and transitioned to 4 L of oxygen nasal cannula Acute on chronic hypoxemic and hypercapnic respiratory failure secondary to above. Currently off BiPAP although he can still use BiPAP on and off during the day and overnight. He was transitioned to 4 L O2 nasal cannula History of previous respiratory failure and ventilator dependence related to COPD exacerbation Coronary artery disease with previous stents to the LAD and RCA Hypertension Hyperlipidemia Morbid Obesity with a BMI of 41 History of polysubstance abuse, on Suboxone outpatient Chronic back pain Chronic nicotine dependence, Current 1-1/2 pack per day smoker History of brain aneurysm Plan: Keep the patient on 4 L nasal cannula Continue bronchodilators and steroids Continue combination Perforomist and Pulmicort updrafts twice a day Continue IV Zosyn Agree on starting metoprolol 25 milligrams by mouth 3 times a day Continue Cardizem drip Give a total of 300mg IV amiodarone slowly and start him on amiodarone loading and maintenance Monitor the heart rate Continue the current admission with [facility] TSH is within normal limits Offered diet Case was discussed with cardiology The patient will be kept in ICU We'll continue to follow We'll continue to follow, critical care evaluation > 30min Time with Patient: Greater than 30
[2023-02-04] MEDS: INSULIN ASPART (NovoLOG) 100 UNIT/ML VIAL SQ SCH ×4 (08:13→20:32)
[2023-02-04] MEDS: APIXABAN 5 MG TAB PO SCH ×2 (08:29→21:24)
[2023-02-04] MEDS: GABAPENTIN 300 MG CAP PO SCH ×3 (08:29→20:12)
[2023-02-04] MEDS: PANTOPRAZOLE 40 MG/10 ML VIAL IVP SCH (08:29)
[2023-02-04] MEDS: NICOTINE 21MG/24HR PATCH TRANSDERM SCH (08:29)
[2023-02-04] MEDS: ASPIRIN 81 MG PO SCH (08:29)
[2023-02-04] MEDS: METOPROLOL TARTRATE 25 MG TAB PO SCH ×3 (08:29→21:25)
[2023-02-04] MEDS: TAMSULOSIN 0.4 MG CAP.ER.24H PO SCH (08:29)
[2023-02-04] MEDS: ATORVASTATIN 40 MG TAB PO SCH (08:29)
[2023-02-04] MEDS: lisinopriL 20 MG TAB PO SCH (08:29)
[2023-02-04] MEDS: SODIUM CHLORIDE 0.9% 1,000 ML IV SCH ×2 (08:31→21:24)
[2023-02-04] MEDS: NON FORMULARY DRUG (Vilazodone Hcl [Viibryd] 20 MG Tablet) PO SCH (08:31)
[2023-02-04] MEDS: DILTIAZEM 125 MG in SODIUM CHLORIDE 0.9% 100 ML IV SCH (08:37)
[2023-02-04] MEDS: SUBOXONE PO SCH (08:55)
[2023-02-04] MEDS ORDERED: AMIODARONE 360 MG in DEXTROSE 5% IN WATER 200 ML IV ONE ×2 (08:57)
--- NOTE | 2023-02-04 09:01 | P.PN ---
Subjective Progress Note Date: 02/04/23 The patient is a 57-year-old male who presented to the hospital with increased shortness of breath. He was seen 5 days prior at an outside facility but left AGAINST MEDICAL ADVICE. On arrival he was found to be in acute hypoxic respiratory failure and was placed on BiPAP. Cardiology was consulted for at rial flutter with RVR. Over the course of his admission to the ICU he has been maxed out on his Cardizem drip and was started on oral beta blockers. Today his heart rate is in the 150s to 160s, therefore the patient is currently undergoing amiodarone bolus. The patient was interviewed and examined up in the recliner chair. He is mildly labored, but denies any shortness of breath. He denies any chest pain or chest pressure. No dizziness or lightheadedness with ambulation. GENERAL: Ill-appearing, obese male in mild respiratory distress. NECK: Supple without JVD or thyromegaly. LUNGS: Breath sounds diminished to auscultation bilaterally. Respiration equal and mildly labored. Bilateral inspiratory and expiratory wheezes HEART: Irregular rate and rhythm without murmurs, rubs or gallops. S1 and S2 heard. Notably tachycardic EXTREMITIES: Normal range of motion, no edema. No clubbing or cyanosis. Peripheral pulses intact and strong. TELEMETRY: Atrial flutter with RVR. IMPRESSION: A flutter with RVR Acute hypoxic respiratory failure Current smoker History of CAD History hypertension History of hyperlipidemia Morbid obesity, BMI 41 PLAN: Dr. Baltazar recommends a amiodarone bolus with follow-up drip He feels that until his lungs improve, he will remain in atrial flutter with at tempt at rate control Patient will need to undergo atrial flutter/atrial tachycardia ablation, however this cannot be completed until he is on anticoagulation for 30 days The patient will likely be refractory to cardioversion Continue supportive treatment and aggressive pulmonary hygiene Further recommendations based on clinical course I am dictating on behalf of Dr Héctor Baltazar's history/physical and assessment/plan. Objective - Vital Signs Vital signs: Vital Signs Temp 97.5 F L 02/04/23 04:00 Pulse 158 H 02/04/23 07:00 Resp 13 02/04/23 07:00 BP 121/82 02/04/23 07:00 Pulse Ox 95 02/04/23 07:00 FiO2 50 02/04/23 07:47 Intake & Output 02/03/23 02/04/23 02/04/23 18:59 06:59 18:59 Intake Total 2702.167 2421.584 114.25 Output Total 800 2065 0 Balance 1902.167 356.584 114.25 Weight 123.3 kg Intake: IV 75 925 75 Piperacillin-Tazobactam 3 100 .375 gm In Sodium Chloride 0.9% 100 ml @ 25 mls/hr IVPB Q8HR [facility] Rx# :[id number] Sodium Chloride 0.9% 1, 75 825 75 000 ml @ 75 mls/hr IV . [id number] [facility] Rx#:[id number] Intake, IV Titration 1227.167 176.584 39.25 Amount Diltiazem 125 mg In 202.167 101.584 39.25 Sodium Chloride 0.9% 100 ml @ 10 MG/HR 10 mls/hr IV .[id number] [facility] Rx#: [id number] Piperacillin-Tazobactam 3 200 .375 gm In Sodium Chloride 0.9% 100 ml @ 25 mls/hr IVPB Q8HR [facility] Rx# :[id number] Sodium Chloride 0.9% 1, 825 75 000 ml @ 75 mls/hr IV . [id number] [facility] Rx#:[id number] Oral 1400 1320 Output: Urine 800 2065 0 Other: Voiding Method Urinal - Labs CBC & Chem 7: 02/04/23 04:50 02/04/23 04:50 Labs: Abnormal Lab Results - Last 24 Hours (Table) 02/03/23 02/03/23 02/03/23 Range/Units 11:25 16:18 20:36 RBC (4.30-5.90) m/uL Hgb (13.0-17.5) gm/dL MCV (80.0-100.0) fL MCHC (31.0-37.0) g/dL Plt Count (150-450) k/uL Lymphocytes # (1.0-4.8) k/uL Sodium (137-145) mmol/L Chloride (98-107) mmol/L Carbon Dioxide (22-30) mmol/L BUN (9-20) mg/dL Glucose (74-99) mg/dL POC Glucose (mg/dL) 157 H 250 H 168 H (70-110) mg/dL Calcium (8.4-10.2) mg/dL Total Protein (6.3-8.2) g/dL Albumin (3.5-5.0) g/dL 02/04/23 02/04/23 02/04/23 Range/Units 04:50 04:50 07:05 RBC 4.12 L (4.30-5.90) m/uL Hgb 12.5 L (13.0-17.5) gm/dL MCV 101.9 H (80.0-100.0) fL MCHC 29.7 L (31.0-37.0) g/dL Plt Count 135 L (150-450) k/uL Lymphocytes # 0.2 L (1.0-4.8) k/uL Sodium 135 L (137-145) mmol/L Chloride 94 L (98-107) mmol/L Carbon Dioxide 38 H (22-30) mmol/L BUN 26 H (9-20) mg/dL Glucose 160 H (74-99) mg/dL POC Glucose (mg/dL) 154 H (70-110) mg/dL Calcium 7.9 L (8.4-10.2) mg/dL Total Protein 5.5 L (6.3-8.2) g/dL Albumin 3.3 L (3.5-5.0) g/dL Microbiology - Last 24 Hours (Table) 02/02/23 04:44 Urine Culture - Final Urine,Voided 02/01/23 19:22 Blood Culture - Preliminary Blood
[2023-02-04] MEDS ORDERED: HALOPERIDOL LACTATE 5 MG/ML 1 ML VIAL IM STA (11:08)
[2023-02-04] MEDS ORDERED: HALOPERIDOL LACTATE 5 MG/ML 1 ML VIAL IVP PRN (11:30)
[2023-02-04] MEDS: DEXMEDETOMIDINE/0.9% NACL(PMX) 400 MCG in EMPTY BAG 1 BAG IV SCH (11:36)
[2023-02-04 12:06] LABS: Glucose,Whole Blood 287 mg/dL (70-110)
[2023-02-04] MEDS ORDERED: HALOPERIDOL LACTATE 5 MG/ML 1 ML VIAL IM PRN (12:47)
[2023-02-04] MEDS ORDERED: DILTIAZEM 125 MG in SODIUM CHLORIDE 0.9% 100 ML IV SCH (13:00)
--- NOTE | 2023-02-04 13:33 | P.PN ---
Subjective Progress Note Date: 02/04/23 This is a 57-year-old male who follows with Dr. Marty Richard in the outpatient setting was recently admitted with shortness of breath with COPD exacerbation with acute hypoxic respiratory failure. Patient has been intermittently using BiPAP as well as nasal cannula. Patient continues to be in the ICU. Multiple medical consultations following including cardiology is patient is in uncontrolled rhythm with atrial flutter with rapid ventricular rate and heart rate increased into the 150s and 160s today. Patient extremely agitated and had an episode of ripping out his IVs and wanting to leave AGAINST MEDICAL ADVICE. Nursing staff petitioning the patient for increased agitation and will have psyc hiatric evaluation as well. Social work is following working as patient may have a legal guardian. Patient is currently afebrile denies chest pain or palpitations. Patient reports his heart rate was elevated because he was worked up and agitated. No reports of nausea or vomiting noted patient is tolerating diet. Review of systems: Constitutional: No reports of fatigue, fever, or chills, reports increased agitation and anxiety Cardiovascular: No reports of chest pain or palpitations Respiratory: reports of shortness of breath with cough GI: No reports of nausea, no reports of vomiting, no diarrhea : No reports of dysuria or retention Neurovascular: reports of generalized weakness All medications have been reviewed Active Medications Acetaminophen (Acetaminophen Tab 325 Mg Tab) 650 mg PO Q6HR PRN PRN Reason: Mild Pain or Fever > 100.5 Last Admin: 02/02/23 14:51 Dose: 650 mg Albuterol/Ipratropium (Ipratropium-Albuterol 3 Ml Neb) 3 ml INHALATION RT-QID [facility] Last Admin: 02/04/23 11:18 Dose: Not Given Albuterol/Ipratropium (Ipratropium-Albuterol 3 Ml Neb) 3 ml INHALATION RT-Q2H PRN PRN Reason: Shortness Of Breath Or Wheezing Last Admin: 02/04/23 00:50 Dose: 3 ml Apixaban (Apixaban 5 Mg Tab) 5 mg PO BID [facility]; Protocol Last Admin: 02/04/23 08:29 Dose: 5 mg Aspirin (Aspirin 81 Mg) 81 mg PO DAILY [facility] Last Admin: 02/04/23 08:29 Dose: 81 mg Atorvastatin Calcium (Atorvastatin 40 Mg Tab) 40 mg PO DAILY [facility] Last Admin: 02/04/23 08:29 Dose: 40 mg Budesonide (Budesonide 1 Mg/2 Ml Nebu) 1 mg INHALATION RT-BID [facility] Last Admin: 02/04/23 07:56 Dose: Not Given Dextrose/Water (Dextrose 50% Syringe 50 Ml) 25 ml IVP PER PROTOCOL PRN; Protocol PRN Reason: Hypoglycemia Dextrose/Water (Dextrose 50% Syringe 50 Ml) 50 ml IVP PER PROTOCOL PRN; Protocol PRN Reason: Hypoglycemia Formoterol Fumarate (Formoterol Fumarate 20 Mcg/2 Ml Nebu) 20 mcg INHALATION RT-BID [facility] Last Admin: 02/04/23 07:56 Dose: Not Given Gabapentin (Gabapentin 300 Mg Cap) 300 mg PO TID [facility] Last Admin: 02/04/23 08:29 Dose: 300 mg Haloperidol Lactate (Haloperidol Lactate 5 Mg/Ml 1 Ml Vial) 5 mg IM Q6HR PRN PRN Reason: Agitation or Acute Psychosis Sodium Chloride (Saline 0.9%) 1,000 mls @ 75 mls/hr IV .[id number] [facility] Last Admin: 02/04/23 08:31 Dose: Not Given Piperacillin Sod/Tazobactam (Sod 3.375 gm/ Sodium Chloride) 100 mls @ 25 mls/hr IVPB Q8HR [facility]; Protocol Last Admin: 02/04/23 08:29 Dose: 25 mls/hr Amiodarone HCl 360 mg/ (Dextrose/Water) 200 mls @ 33.333 mls/hr IV .Q6H [facility]; Protocol Stop: 02/04/23 14:56 Last Admin: 02/04/23 09:28 Dose: 1 mg/min, 33.333 mls/hr Amiodarone HCl 450 mg/ (Dextrose/Water) 250 mls @ 16.667 mls/hr IV .Q15H [facility]; Protocol Stop: 02/05/23 08:59 Dexmedetomidine HCl 400 mcg/ (IV Solution) 100 mls @ 6.165 mls/hr IV .[id number] [facility]; Protocol Last Titration: 02/04/23 13:01 Dose: 0.1 mcg/kg/hr, 3.083 mls/hr Diltiazem HCl 125 mg/ Sodium (Chloride) 125 mls @ 0 mls/hr IV .Q0M [facility]; Protocol Last Titration: 02/04/23 13:00 Dose: 0 mg/hr, 0 mls/hr Insulin Aspart (Insulin Aspart (Novolog) 100 Unit/Ml Vial) 0 unit SQ ACHS [facility]; Protocol Last Admin: 02/04/23 12:06 Dose: 9 unit Lisinopril (Lisinopril 20 Mg Tab) 20 mg PO DAILY [facility] Last Admin: 02/04/23 08:29 Dose: 20 mg Methylprednisolone Sodium Succinate (Methylprednisolone Sod Succi 125 Mg/2 Ml Vial) 60 mg IV Q6HR [facility] Last Admin: 02/04/23 12:07 Dose: 60 mg Metoprolol Tartrate (Metoprolol Tartrate 25 Mg Tab) 25 mg PO TID [facility] Last Admin: 02/04/23 08:29 Dose: 25 mg Naloxone HCl (Naloxone 0.4 Mg/Ml 1 Ml Vial) 0.2 mg IV Q2M PRN PRN Reason: Opioid Reversal Nicotine (Nicotine 21mg/24hr Patch) 1 patch TRANSDERM DAILY [facility] Last Admin: 02/04/23 08:29 Dose: 1 patch Non-Formulary Medication (Vilazodone Hcl [Viibryd]) 20 mg PO DAILY [facility] Last Admin: 02/04/23 08:31 Dose: Not Given Suboxone ( Buprenorphine/Naloxone) 8mg/2mg* * Sl Film 8 mg PO BID@0800,2000 [facility] Last Admin: 02/04/23 08:55 Dose: 8 mg Suboxone ( Buprenorphine/Naloxone) 4mg/1mg* * Sl Film 1 film SUBLINGUAL DAILY@1400 [facility] Last Admin: 02/03/23 15:15 Dose: 1 film Non-Formulary Medication (Dextroamphetamine/Amphetamine) 30 mg PO AC-BID [facility] Last Admin: 02/04/23 07:58 Dose: Not Given Pantoprazole Sodium (Pantoprazole 40 Mg/10 Ml Vial) 40 mg IVP DAILY [facility] Last Admin: 02/04/23 08:29 Dose: 40 mg Quetiapine Fumarate (Quetiapine 100 Mg Tab) 100 mg PO [facility] Tamsulosin HCl (Tamsulosin 0.4 Mg Cap.Er.24h) 0.4 mg PO DAILY [facility] Last Admin: 02/04/23 08:29 Dose: 0.4 mg Verapamil HCl (Verapamil 80 Mg Tab) 80 mg PO TID [facility] Last Admin: 02/04/23 07:58 Dose: Not Given PHYSICAL EXAMINATION: GENERAL: The patient is alert and oriented x3, Well developed, well nourished. Anxious, agitated Morbidly obese, unkept HEENT: Pupils are round and equally reacting to light. EOMI. no scleral icterus. No conjunctival pallor. Normocephalic, atraumatic. No pharyngeal erythema. No thyromegaly. CARDIOVASCULAR: S1 and S2 muffled,irregular PULMONARY: diminished breath sounds bilaterally with some coarse scattered rhonchi and crackles noted. ABDOMEN: soft. Nontender on exam. obese. non-distended, normoactive bowel sounds. No palpable organomegaly. MUSCULOSKELETAL: No joint swelling or deformity. EXTREMITIES: No cyanosis, clubbing, or pedal edema. NEUROLOGICAL: Gross neurological examination did not reveal any focal deficits. Diffuse weakness SKIN: No rashes. Assessment: Shortness of breath with COPD exacerbation, requiring BiPAP and nasal cannula Possible acute bilateral pneumonia Acute hypoxic respiratory failure secondary to above Atrial flutter with RVR diabetes mellitus, type II uncontrolled with Hyperglycemia, hemoglobin A1c is 5.9 Coronary artery disease history Hypertension Hyperlipidemia History of brain aneurysm Morbid obesity with a BMI of 41.3 Continued ongoing nicotine dependence GI prophylaxis DVT prophylaxis Full code Plan: Recommend to continue with current medications and management and continues to be in the ICU. Patient became increasingly agitated and aggressive toward staff and pulling at IVs and threatening to leave AGAINST MEDICAL ADVICE. Per nursing staff patient is being petitioned with psychiatric evaluation requested. Patient given Haldol and did become more calm and cooperative. Appreciate input recommendations from psych. Patient is not able to leave AGAINST MEDICAL ADVICE and social work following as well as patient may have a legal guardian although unsure and working on contacting family. Patient also being followed by cardiology as patient remains in a flutter with uncontrolled rates and rapid and being started on amiodarone drip Pulmonary following as well and patient is continued on IV antibiotics in the form of Zosyn with concerns of pneumonia and is also continued on IV steroids along with breathing inhalational treatments Medical record shows history of diabetes mellitus although is not taking any medications on current home medications and hemoglobin A1c is 5.9. Hyperglycemia possibly steroid-induced and will continue Accu-Cheks before meals and at bedtime and current sliding scale regimen Recommend wean FiO2 as tolerated and follow-up labs ordered Follow-up chest x-ray in the a.m. and will continue to monitor closely. Overall prognosis is guarded at this time The impression and plan of care has been dictated by Renetta Romero, nurse practitioner as directed. Dr. Dandy MD I have performed a history and examination and MDM of this patient, discussed the same with the dictator, and agree with the dictator's assessment and plan as written ,documented as a scribe. Based on total visit time, I have performed more than 50% of the visit. Any additional findings or plans will be noted. Objective - Vital Signs Vital signs: Vital Signs Temp 97.5 F L 02/04/23 04:00 Pulse 158 H 02/04/23 07:00 Resp 13 02/04/23 07:00 BP 121/82 02/04/23 07:00 Pulse Ox 95 02/04/23 07:00 FiO2 50 02/04/23 07:47 Intake & Output 02/03/23 02/04/23 02/04/23 18:59 06:59 18:59 Intake Total 2702.167 2421.584 117.179 Output Total 800 2065 0 Balance 1902.167 356.584 117.179 Weight 123.3 kg Intake: IV 75 925 75 Piperacillin-Tazobactam 3 100 .375 gm In Sodium Chloride 0.9% 100 ml @ 25 mls/hr IVPB Q8HR [facility] Rx# :[id number] Sodium Chloride 0.9% 1, 75 825 75 000 ml @ 75 mls/hr IV . [id number] [facility] Rx#:[id number] Intake, IV Titration 1227.167 176.584 42.179 Amount Dexmedetomidine/0.9% NaCl 2.929 (Pmx) 400 mcg In Empty Bag 1 bag @ 0.2 MCG/KG/HR 6.165 mls/hr IV .[id number] [facility] Rx#:[id number] Diltiazem 125 mg In 202.167 101.584 39.25 Sodium Chloride 0.9% 100 ml @ 10 MG/HR 10 mls/hr IV .[id number] [facility] Rx#: [id number] Piperacillin-Tazobactam 3 200 .375 gm In Sodium Chloride 0.9% 100 ml @ 25 mls/hr IVPB Q8HR [facility] Rx# :[id number] Sodium Chloride 0.9% 1, 825 75 000 ml @ 75 mls/hr IV . [id number] [facility] Rx#:[id number] Oral 1400 1320 Output: Urine 800 2065 0 Other: Voiding Method Urinal - Labs CBC & Chem 7: 02/04/23 04:50 02/04/23 04:50 Labs: Abnormal Lab Results - Last 24 Hours (Table) 02/03/23 02/03/23 02/04/23 Range/Units 16:18 20:36 04:50 RBC 4.12 L (4.30-5.90) m/uL Hgb 12.5 L (13.0-17.5) gm/dL MCV 101.9 H (80.0-100.0) fL MCHC 29.7 L (31.0-37.0) g/dL Plt Count 135 L (150-450) k/uL Lymphocytes # 0.2 L (1.0-4.8) k/uL Sodium (137-145) mmol/L Chloride (98-107) mmol/L Carbon Dioxide (22-30) mmol/L BUN (9-20) mg/dL Glucose (74-99) mg/dL POC Glucose (mg/dL) 250 H 168 H (70-110) mg/dL Calcium (8.4-10.2) mg/dL Total Protein (6.3-8.2) g/dL Albumin (3.5-5.0) g/dL 02/04/23 02/04/23 02/04/23 Range/Units 04:50 07:05 12:04 RBC (4.30-5.90) m/uL Hgb (13.0-17.5) gm/dL MCV (80.0-100.0) fL MCHC (31.0-37.0) g/dL Plt Count (150-450) k/uL Lymphocytes # (1.0-4.8) k/uL Sodium 135 L (137-145) mmol/L Chloride 94 L (98-107) mmol/L Carbon Dioxide 38 H (22-30) mmol/L BUN 26 H (9-20) mg/dL Glucose 160 H (74-99) mg/dL POC Glucose (mg/dL) 154 H 287 H (70-110) mg/dL Calcium 7.9 L (8.4-10.2) mg/dL Total Protein 5.5 L (6.3-8.2) g/dL Albumin 3.3 L (3.5-5.0) g/dL Microbiology - Last 24 Hours (Table) 02/01/23 19:22 Blood Culture - Preliminary Blood 02/02/23 04:44 Urine Culture - Final Urine,Voided
[2023-02-04] MEDS: SUBOXONE SUBLINGUAL SCH (14:14)
--- NOTE | 2023-02-04 14:35 | P.PN ---
Subjective Progress Note Date: 02/04/23 Principal diagnosis: Possible pneumonia Patient is a 57-year-old male with a past medical history significant for COPD apparently the patient was recently admitted to the [facility] about 5 days ago and the patient left AGAINST MEDICAL ADVICE patient subsequently presenting back to the hospital with worsening shortness of breath and hypoxemia patient was noted to be in new onset atrial flutter, patient did have a CT at the outside facility and reported negative for cardiopulmonary disease and the patient was subsequently transferred to [facility] for management of his atrial fibrillation and rapid ventricular response On today's evaluation that is 02/04/2023, the patient continues to be afebrile, the patient is breathing comfortably on a 4 L nasal cannula, patient is currently sleepy as apparently the patient was rested this morning and wanted to leave AGAINST MEDICAL ADVICE has received some sedation no vomiting or diarrhea has been reported by the nursing staff Objective - Vital Signs Vital signs: Vital Signs Temp 97.5 F L 02/04/23 12:00 Pulse 86 02/04/23 13:00 Resp 21 02/04/23 13:00 BP 91/56 02/04/23 13:00 Pulse Ox 95 02/04/23 13:00 FiO2 50 02/04/23 07:47 Intake & Output 02/03/23 02/04/23 02/04/23 18:59 06:59 18:59 Intake Total 2702.167 2421.584 680.996 Output Total 800 2065 300 Balance 1902.167 356.584 380.996 Weight 123.3 kg Intake: IV 75 925 625 Piperacillin-Tazobactam 3 100 100 .375 gm In Sodium Chloride 0.9% 100 ml @ 25 mls/hr IVPB Q8HR [facility] Rx# :[id number] Sodium Chloride 0.9% 1, 75 825 525 000 ml @ 75 mls/hr IV . [id number] [facility] Rx#:[id number] Intake, IV Titration 1227.167 176.584 55.996 Amount Dexmedetomidine/0.9% NaCl 14.746 (Pmx) 400 mcg In Empty Bag 1 bag @ 0.2 MCG/KG/HR 6.165 mls/hr IV .[id number] [facility] Rx#:[id number] Diltiazem 125 mg In 202.167 101.584 39.25 Sodium Chloride 0.9% 100 ml @ 10 MG/HR 10 mls/hr IV .[id number] [facility] Rx#: [id number] Diltiazem 125 mg In 2 Sodium Chloride 0.9% 100 ml @ Per Protocol IV .Q0M [facility] Rx#:[id number] Piperacillin-Tazobactam 3 200 .375 gm In Sodium Chloride 0.9% 100 ml @ 25 mls/hr IVPB Q8HR [facility] Rx# :[id number] Sodium Chloride 0.9% 1, 825 75 000 ml @ 75 mls/hr IV . [id number] [facility] Rx#:[id number] Oral 1400 1320 Output: Urine 800 2065 300 Other: Voiding Method Urinal Urinal # Voids 1 - Exam GENERAL DESCRIPTION: Middle-age male lying in bed in no distress RESPIRATORY SYSTEM: Unlabored breathing , decreased intensity of breath sounds HEART: S1 S2 regular rate and rhythm , ABDOMEN: Soft , no tenderness EXTREMITIES: No edema feet - Labs CBC & Chem 7: 02/04/23 04:50 02/04/23 04:50 Labs: Abnormal Lab Results - Last 24 Hours (Table) 02/03/23 02/03/23 02/04/23 Range/Units 16:18 20:36 04:50 RBC 4.12 L (4.30-5.90) m/uL Hgb 12.5 L (13.0-17.5) gm/dL MCV 101.9 H (80.0-100.0) fL MCHC 29.7 L (31.0-37.0) g/dL Plt Count 135 L (150-450) k/uL Lymphocytes # 0.2 L (1.0-4.8) k/uL Sodium (137-145) mmol/L Chloride (98-107) mmol/L Carbon Dioxide (22-30) mmol/L BUN (9-20) mg/dL Glucose (74-99) mg/dL POC Glucose (mg/dL) 250 H 168 H (70-110) mg/dL Calcium (8.4-10.2) mg/dL Total Protein (6.3-8.2) g/dL Albumin (3.5-5.0) g/dL 02/04/23 02/04/23 02/04/23 Range/Units 04:50 07:05 12:04 RBC (4.30-5.90) m/uL Hgb (13.0-17.5) gm/dL MCV (80.0-100.0) fL MCHC (31.0-37.0) g/dL Plt Count (150-450) k/uL Lymphocytes # (1.0-4.8) k/uL Sodium 135 L (137-145) mmol/L Chloride 94 L (98-107) mmol/L Carbon Dioxide 38 H (22-30) mmol/L BUN 26 H (9-20) mg/dL Glucose 160 H (74-99) mg/dL POC Glucose (mg/dL) 154 H 287 H (70-110) mg/dL Calcium 7.9 L (8.4-10.2) mg/dL Total Protein 5.5 L (6.3-8.2) g/dL Albumin 3.3 L (3.5-5.0) g/dL Microbiology - Last 24 Hours (Table) 02/01/23 19:22 Blood Culture - Preliminary Blood 02/02/23 04:44 Urine Culture - Final Urine,Voided Assessment and Plan (1) Acute exacerbation of chronic obstructive pulmonary disease Current Visit: Yes Status: Acute Code(s): J44.1 - CHRONIC OBSTRUCTIVE PULMONARY DISEASE W (ACUTE) EXACERBATION SNOMED Code(s): 783336788 Plan: 1patient presented to hospital with increasing shortness of breath which is likely multifactorial in this patient with a COPD exacerbation with a tracheobronchitis and concern for possible worsening with atrial fibrillation and rapid ventricular response, clinically not behaving as pneumonia as the patient did not have any fever White count has been normal chest x-ray no acute infiltrate 2-patient x-ray today shows mostly left-sided infiltrated the question of possible pneumonia patient to continue Zosyn , try to obtain a sputum and monitor his clinical course closely Time with Patient: Less than 30
[2023-02-04] MEDS: AMIODARONE 450 MG in DEXTROSE 5% IN WATER 250 ML IV SCH ×2 (15:41)
[2023-02-04 16:02] LABS: Glucose,Whole Blood 144 mg/dL (70-110)
[2023-02-04 17:25] LABS: Appearance,Urine Clear (Clear); Bilirubin,Urine Negative (Negative); Blood,Urine Negative (Negative); Color,Urine Yellow; Glucose,Urine (UA) Negative (Negative); Ketones,Urine Negative (Negative); Leukocyte Esterase,Urine Negative (Negative); Nitrite,Urine Negative (Negative); Protein,Urine Negative (Negative); Specific Gravity,Urine 1.018 (1.001-1.035); Urobilinogen,Urine <2.0 mg/dL (<2.0)
[2023-02-04] MEDS ORDERED: SUBOXONE PO SCH (20:00)
[2023-02-04] MEDS: QUEtiapine 100 MG TAB PO SCH (20:12)
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
[2023-02-04 20:29] LABS: Glucose,Whole Blood 137 mg/dL (70-110)
[2023-02-04] MEDS: BUPRENORPHINE SUBLINGUAL SCH (21:43)
[2023-02-04] MEDS: NALOXONE SUBLINGUAL SCH (21:43)
[2023-02-05] MEDS: PIPERACILLIN-TAZOBACTAM 3.375 GM in SODIUM CHLORIDE 0.9% 100 ML IVPB SCH ×3 (00:08→16:12)
[2023-02-05] MEDS: methylPREDNISolone SOD SUCCI 125 MG/2 ML VIAL IV SCH ×4 (00:08→19:05)
[2023-02-05] MEDS: DEXMEDETOMIDINE/0.9% NACL(PMX) 400 MCG in EMPTY BAG 1 BAG IV SCH ×2 (02:09→10:15)
[2023-02-05 04:07] LABS: Basophils % (A) 0 %; Eosinophils % (A) 0 %; HCT 42.6 % (39.0-53.0); HGB 12.8 gm/dL (13.0-17.5); Hypochromasia Marked; Lymphocytes # (A) 0.2 k/uL (1.0-4.8); Lymphocytes % (A) 3 %; MCH 30.6 pg (25.0-35.0); Macrocytosis Slight; Mean Platelet Volume 9.3; Monocytes # (A) 0.2 k/uL (0-1.0); Monocytes % (A) 4 %; Neutrophils # (A) 5.2 k/uL (1.3-7.7); Neutrophils % (A) 92 %; Platelet Count 133 k/uL (150-450); RBC 4.18 m/uL (4.30-5.90); RDW 14.5 % (11.5-15.5); WBC 5.6 k/uL (3.8-10.6)
[2023-02-05 04:26] LABS: African American GFR (CKD) >90 (>60 ml/min/1.73 sqM); Anion Gap 5 mmol/L; Blood Urea Nitrogen 32 mg/dL (9-20); Calcium 7.8 mg/dL (8.4-10.2); Carbon Dioxide 33 mmol/L (22-30); Chloride 97 mmol/L (98-107); Glucose 174 mg/dL (74-99); Non-African American GFR(CKD) >90 (>60 ml/min/1.73 sqM); Potassium 4.9 mmol/L (3.5-5.1); Sodium 135 mmol/L (137-145)
[2023-02-05] MEDS: AMIODARONE 450 MG in DEXTROSE 5% IN WATER 250 ML IV SCH ×2 (05:03)
[2023-02-05 07:06] LABS: Glucose,Whole Blood 183 mg/dL (70-110)
[2023-02-05] MEDS: INSULIN ASPART (NovoLOG) 100 UNIT/ML VIAL SQ SCH ×4 (07:07→20:53)
[2023-02-05] MEDS: AMPHETAMINE PO SCH (07:40)
[2023-02-05] MEDS: DEXTROAMPHETAMINE PO SCH (07:40)
[2023-02-05] MEDS: BUDESONIDE 1 MG/2 ML NEBU INHALATION SCH ×2 (07:49→19:54)
[2023-02-05] MEDS: FORMOTEROL FUMARATE 20 MCG/2 ML NEBU INHALATION SCH ×2 (07:49→19:54)
[2023-02-05] MEDS: IPRATROPIUM-ALBUTEROL 3 ML NEB INHALATION SCH ×4 (07:49→19:54)
--- NOTE | 2023-02-05 08:02 | XR ---
EXAMINATION TYPE: XR chest 1V portable DATE OF EXAM: 02/05/2023 Comparison: 02/04/2023 Clinical History: 57 year-old male shortness of breath, dyspnea Findings: Undergoing hazy opacity throughout the left hemithorax. Previous left-sided thoracotomy change. Inter stitial prominence on the right is slightly increased. Impression: Ongoing left upper lobe collapse and consolidation along with small left pleural effusion which may b e slightly increased now. Correlate for possible developing mild pulmonary vascular congestion as nettie frost
[2023-02-05] MEDS: ATORVASTATIN 40 MG TAB PO SCH (09:00)
[2023-02-05] MEDS: GABAPENTIN 300 MG CAP PO SCH ×3 (09:00→20:53)
[2023-02-05] MEDS: BUPRENORPHINE SUBLINGUAL SCH ×2 (09:00→20:54)
[2023-02-05] MEDS: NICOTINE 21MG/24HR PATCH TRANSDERM SCH (09:00)
[2023-02-05] MEDS: NALOXONE SUBLINGUAL SCH ×2 (09:00→20:54)
[2023-02-05] MEDS: PANTOPRAZOLE 40 MG/10 ML VIAL IVP SCH (09:00)
[2023-02-05] MEDS: ASPIRIN 81 MG PO SCH (09:00)
[2023-02-05] MEDS: TAMSULOSIN 0.4 MG CAP.ER.24H PO SCH (09:00)
[2023-02-05] MEDS: APIXABAN 5 MG TAB PO SCH ×2 (09:00→20:53)
[2023-02-05] MEDS: NON FORMULARY DRUG (Vilazodone Hcl [Viibryd] 20 MG Tablet) PO SCH (09:04)
[2023-02-05] MEDS: METOPROLOL TARTRATE 25 MG TAB PO SCH ×3 (09:07→20:53)
[2023-02-05] MEDS: lisinopriL 20 MG TAB PO SCH (09:07)
--- NOTE | 2023-02-05 09:18 | P.PN ---
Subjective Progress Note Date: 02/05/23 The patient is a 57-year-old male who presented to the hospital with increased shortness of breath. He was seen 5 days prior at an outside facility but left AGAINST MEDICAL ADVICE. On arrival he was found to be in acute hypoxic respiratory failure and was placed on BiPAP. [facility] was [facility] with RVR. Over the course of his admission to the ICU he has been maxed out on his Cardizem drip, started on oral beta blockers, and was started on IV amiodarone. Patient converted to sinus rhythm on Feb 04 2100. He remains in sinus rhythm with heart rates in the 70s. The patient attempted to leave AGAINST MEDICAL ADVICE, however psychiatric evaluation states that he does not have decision-making capacity and is experiencing delirium. The patient was interviewed and examined lying in bed. He remains to tachypneic with mildly labored breathing. GENERAL: Ill-appearing, obese male in mild respiratory distress. Currently resting on Precedex. NECK: Supple without JVD or thyromegaly. LUNGS: Breath sounds coarse to auscultation bilaterally. Respiration equal and mildly labored. Bilateral inspiratory and expiratory wheezes HEART: Irregular rate and rhythm without murmurs, rubs or gallops. S1 and S2 heard. Notably tachycardic EXTREMITIES: Normal range of motion, no edema. No clubbing or cyanosis. Peripheral pulses intact and strong. TELEMETRY: I sinus rhythm with heart rates in the 70s. IMPRESSION: A flutter with RVR, conversion with IV amiodarone Acute hypoxic respiratory failure Current smoker History of CAD History hypertension History of hyperlipidemia Morbid obesity, BMI 41 Cardiomyopathy, unspecified, EF 45% PLAN: Transition to oral amiodarone Continue low-dose beta blockers 3 times a day for cardiomyopathy No oral calcium channel blockers at this time Continue aggressive pulmonary hygiene Further recommendations based on clinical course I am dictating on behalf of Dr Héctor Baltazar's history/physical and assessment/plan. Objective - Vital Signs Vital signs: Vital Signs Temp 96.6 F L 02/05/23 04:00 Pulse 92 02/05/23 08:09 Resp 16 02/05/23 07:00 BP 109/73 02/05/23 07:00 Pulse Ox 91 L 02/05/23 07:00 FiO2 50 02/05/23 04:00 Intake & Output 02/04/23 02/05/23 02/05/23 18:59 06:59 18:59 Intake Total 3668.881 9221.896 75 Output Total 1480 490 40 Balance -307.700 766.896 35 Weight 126.4 kg Intake: IV 1100 1000 75 Piperacillin-Tazobactam 3 200 100 .375 gm In Sodium Chloride 0.9% 100 ml @ 25 mls/hr IVPB Q8HR [facility] Rx# :[id number] Sodium Chloride 0.9% 1, 900 900 75 000 ml @ 75 mls/hr IV . [id number] [facility] Rx#:[id number] Intake, IV Titration 72.300 256.896 Amount Amiodarone 450 mg In 222.782 Dextrose 5% in Water 250 ml @ 0.5 MG/MIN 16.667 mls/hr IV .Q15H [facility] Rx#: [id number] Dexmedetomidine/0.9% NaCl 26.050 34.114 (Pmx) 400 mcg In Empty Bag 1 bag @ 0.2 MCG/KG/HR 6.165 mls/hr IV .[id number] [facility] Rx#:[id number] Diltiazem 125 mg In 39.25 Sodium Chloride 0.9% 100 ml @ 10 MG/HR 10 mls/hr IV .[id number] [facility] Rx#: [id number] Diltiazem 125 mg In 7 Sodium Chloride 0.9% 100 ml @ Per Protocol IV .Q0M [facility] Rx#:[id number] Output: Urine 1480 490 40 Other: Voiding Method Indwelling Catheter Indwelling Catheter # Voids 1 - Labs CBC & Chem 7: 02/05/23 03:27 02/05/23 03:27 Labs: Abnormal Lab Results - Last 24 Hours (Table) 02/04/23 02/04/23 02/04/23 Range/Units 12:04 16:00 20:28 RBC (4.30-5.90) m/uL Hgb (13.0-17.5) gm/dL MCV (80.0-100.0) fL MCHC (31.0-37.0) g/dL Plt Count (150-450) k/uL Lymphocytes # (1.0-4.8) k/uL Sodium (137-145) mmol/L Chloride (98-107) mmol/L Carbon Dioxide (22-30) mmol/L BUN (9-20) mg/dL Glucose (74-99) mg/dL POC Glucose (mg/dL) 287 H 144 H 137 H (70-110) mg/dL Calcium (8.4-10.2) mg/dL 02/05/23 02/05/23 02/05/23 Range/Units 03:27 03:27 07:05 RBC 4.18 L (4.30-5.90) m/uL Hgb 12.8 L (13.0-17.5) gm/dL MCV 102.0 H (80.0-100.0) fL MCHC 30.0 L (31.0-37.0) g/dL Plt Count 133 L (150-450) k/uL Lymphocytes # 0.2 L (1.0-4.8) k/uL Sodium 135 L (137-145) mmol/L Chloride 97 L (98-107) mmol/L Carbon Dioxide 33 H (22-30) mmol/L BUN 32 H (9-20) mg/dL Glucose 174 H (74-99) mg/dL POC Glucose (mg/dL) 183 H (70-110) mg/dL Calcium 7.8 L (8.4-10.2) mg/dL Microbiology - Last 24 Hours (Table) 02/01/23 19:22 Blood Culture - Preliminary Blood
--- NOTE | 2023-02-05 09:55 | P.PN ---
Subjective Progress Note Date: 02/05/23 I am seeing this patient today 02/02/2023 in new consultation in regard to ICU management for acute hypoxic and hypercapnic respiratory failure related to COPD exacerbation and new onset atrial flutter. Patient is a 57-year-old white male with past medical history significant for severe COPD with an FEV1 39% of predicted, chronic oxygen dependence normally maintained on 3 L nasal cannula, current 1-1/2 pack per day smoker, previous respiratory failure and mechanical ventilator dependence, coronary artery disease with previous stents to the LAD and RCA, polysubstance abuse, chronic back pain, and previous brain aneurysms. Patient was transferred from [facility] yesterday afternoon for worsening dyspnea and hypoxia. He was reportedly previously seen at the outside facility 5 days prior, and left AGAINST MEDICAL ADVICE, because he wanted to attend his brother's . He did return to [facility] for dyspnea and chest palpitations. He was found to be in atrial flutter. Initial workup at outside facility included a nonenhanced chest CT which showed no acute cardiopulmonary process. Patient was placed on the BiPAP and transferred to [facility]. On arrival, VBG showed a pCO2 of 103, pH of 7.31. Chest x-ray showed cardiomegaly without any significant cardiopulmonary disease/process. He denies any fever, chills, cough, chest pain. Denies sick contacts. He also denies any weight gain, lower extremity swelling, orthopnea, lightheadedness, syncope. Patient is currently resting in bed, on BiPAP with settings 12/6 and FiO2 50%. He is calm and tolerating the BiPAP. His tidal volumes are only 200-250 ML's, respiratory rate 20 breaths per minute, and IPAP was increased to 14. Patient currently has Cardizem infusing at 15 mg per hour and low intensity heparin infusion per protocol. Heart rhythm is atrial flutter. His heart rate was as high as 150 bpm on arrival, and currently more controlled, with a rate of 100- 115 bpm. He is negative for influenza, RSV, COVID-19. CBC on arrival was unremarkable. Empirically covered on Zosyn. Blood cultures are pending. He remains afebrile. BMP shows sodium 138, potassium 4.7, chloride 85, serum CO2 46, BUN 20, creatinine 0.77, glucose 139. Normal saline infusing at 75 mL per hour. D-dimer was 0.41. NT proBNP was elevated at 1410. Currently receiving a combination of budesonide inhalation, formoterol inhalation, DuoNeb's, and IV Solu-Medrol. Vital signs are stable. On today's evaluation of 02/03/2023, the patient is being seen for a follow-up. He is still lethargic. Arousable. He communicates effectively. His answering questions. He stated on BiPAP throughout the day yesterday at a pressures of 14/6 and the patient is currently off the BiPAP and he is on nasal cannula at 4 L. His to bronchospastic and wheezy and congested. He remains on a combination of bronchodilators and steroids. Note that the patient is chronically dependent on oxygen and he takes oxygen at 3 L at home. At the same time, the patient remains in atrial flutter. He remains on Cardizem drip at 15 mg and he was started also on beta blockers and currently is on metoprolol at a dose of 25 mg twice a day and within the process of gradually weaning down the Cardizem drip. Echocardiogram was done yesterday and the patient was found to have a left ventricular ejection fraction of around 45%. The patient had no significant valvular abnormalities. He did have some mild mitral regurgitation and aortic stenosis. He had dilatation of the right ventricle related to chronic lung disease and his right ventricular systolic pressure was 39 mmHg. He remains on IV heparin. The white cell count today's of 4.9 with a hemoglobin of 11.9 and a platelet count of 143, BUN is 22 with a creatinine of 0.7. Free T4 is normal at 0.9. Blood sugars are modestly elevated and the patient is on a sliding scale insulin coverage. He is on IV Zosyn as an empiric antibiotic coverage. Note that his pro calcitonin level at the time of admission was mildly elevated. His chest x-ray somewhat debilitated and the patient has a limited infiltrate/effusion left lung base. No other significant events overnight. No agitation. Mental status is adequate. Hemoglobin A1c is at 7.8. On 02/04/2023, the patient is being seen for a follow-up. He seems to be much more awake compared to yesterday and less lethargic. He is slightly unreasonable and he wants to go home as he states that he lives across the street from the hospital. Nevertheless, he is not healthy enough or stable enough to be discharged out of the intensive care unit. The patient is currently off the BiPAP. He was on a BiPAP throughout the night and he was taken off the BiPAP and currently is on oxygen at 4 L. His last rhonchus spastic and wheezing compared to yesterday. He is to be less short of breath and the breathing is more comfortable. However, he has an ongoing issue with atrial flutter. He remains in flutter 221 with a rapid heart rate of 160. 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 Unfortunately, no response. He continues to be tachycardic. He is on anti-cognition with Eliquis. He is on IV fluids with normal saline at rate of 75 mL an hour. Adequate urine output. Blood work from today shows a white cell count of 4.2, hemoglobin 12.5, platelet count of 135, knee and is a 26 with a creatinine of 0.7 and sodium level is at 135. He remains on bronchodilators. He remains on IV Solu-Medrol 60 mg every 6 hours. He was given Seroquel 200 mg at bedtime as of yesterday to improve his agitation/restlessness/delirium. He remains on empiric antibiotic coverage with IV Zosyn. As mentioned, is kept on aspirin and anticoagulation with Eliquis was started yesterday. He is following commands and answering questions. No focal neurological deficits. 02/05/2023, the patient is much more stable compared to yesterday. Noted the patient was having significant restlessness around with some altered mentation to the point where the patient wanted to leave AMA. I petitioned the patient. A psych evaluation was obtained. The patient was placed on Precedex which is still running at a dose of 0.1 mcg/kg/m. He is much more comfortable and rested and communicating and is alert and oriented on today's evaluation. At the same time, is less short of breath. Less bronchospastic and wheezy compared to yesterday. In terms of his atrial flutter, the patient was placed on a comb ination of Cardizem drip and amiodarone drip yesterday. Ultimately converted into sinus and this morning he is off the Cardizem drip and is off the amiodarone drip and his heart rate is normal sinus rhythm with a rate of 75. He is currently on metoprolol at a dose of 25 mg 3 times a day. He is also on anticoagulation with Eliquis 5 mg twice a day. As mentioned, his cardiac rhythm is back to sinus. He was also given verapamil 80 mg by mouth 3 times a day for rate control. In terms of his breathing and oxygenation, the patient is currently off the BiPAP. Is on 8 L of oxygen by nasal cannula. The chest x-ray from today is showing opacification of the left lung base, could be and atelect asis along with an area of pleural effusion. The patient will be provided incentive spirometer. The white cell count is at 5.6 with a hemoglobin of 12.8 and a platelet count of 133. BUN is at 32 with a creatinine of 0.7 and his sodium level is at 135. He remains on bronchodilators. He remains on IV Solu- Medrol 60 mg every 6 hours. He remains on IV Zosyn as an empiric antibiotic coverage. Blood cultures have been negative. His pro calcitonin level at the time of admission was 0.03. Objective - Vital Signs Vital signs: Vital Signs Temp 97.9 F 02/05/23 08:00 Pulse 71 02/05/23 09:00 Resp 20 02/05/23 09:00 BP 107/67 02/05/23 09:00 Pulse Ox 91 L 02/05/23 09:00 FiO2 50 02/05/23 04:00 Intake & Output 02/04/23 02/05/23 02/05/23 18:59 06:59 18:59 Intake Total 5559.222 0029.896 325 Output Total 1480 490 100 Balance -307.700 766.896 225 Weight 126.4 kg Intake: IV 1100 1000 325 Piperacillin-Tazobactam 3 200 100 100 .375 gm In Sodium Chloride 0.9% 100 ml @ 25 mls/hr IVPB Q8HR [facility] Rx# :[id number] Sodium Chloride 0.9% 1, 900 900 225 000 ml @ 75 mls/hr IV . [id number] [facility] Rx#:[id number] Intake, IV Titration 72.300 256.896 Amount Amiodarone 450 mg In 222.782 Dextrose 5% in Water 250 ml @ 0.5 MG/MIN 16.667 mls/hr IV .Q15H [facility] Rx#: [id number] Dexmedetomidine/0.9% NaCl 26.050 34.114 (Pmx) 400 mcg In Empty Bag 1 bag @ 0.2 MCG/KG/HR 6.165 mls/hr IV .[id number] [facility] Rx#:[id number] Diltiazem 125 mg In 39.25 Sodium Chloride 0.9% 100 ml @ 10 MG/HR 10 mls/hr IV .[id number] [facility] Rx#: [id number] Diltiazem 125 mg In 7 Sodium Chloride 0.9% 100 ml @ Per Protocol IV .Q0M [facility] Rx#:[id number] Output: Urine 1480 490 100 Other: Voiding Method Indwelling Catheter Indwelling Catheter # Voids 1 - Exam GENERAL EXAM: Alert, 57-year-old white male, on the 8 L nasal cannula HEAD: Normocephalic and atraumatic EYES: Normal reaction of pupils, equal size. NOSE: Clear with pink turbinates. THROAT: No erythema or exudates. NECK: No masses, no JVD. CHEST: No chest wall deformity. LUNGS: Equal air entry with expiratory wheezes throughout. no crackles, rhonchi or focal dullness. On 8 L of oxygen by nasal cannula and the patient is less short of breath unless bronchus spastic and wheezing compared to yesterday CVS: S1 and S2 normal with no audible murmur, ipatient is currently tachycardic a flutter at the rate of 160 ABDOMEN: Obese abdomen. No hepatosplenomegaly, active bowel sounds, no guarding or rigidity. SPINE: No scoliosis or deformity SKIN: No rashes CENTRAL NERVOUS SYSTEM: No focal deficits, tone is normal in all 4 extremities. EXTREMITIES: There is no peripheral edema, clubbing, or cyanosis. Peripheral pulses are intact. - Labs CBC & Chem 7: 02/05/23 03:27 02/05/23 03:27 Labs: Abnormal Lab Results - Last 24 Hours (Table) 02/04/23 02/04/23 02/04/23 Range/Units 12:04 16:00 20:28 RBC (4.30-5.90) m/uL Hgb (13.0-17.5) gm/dL MCV (80.0-100.0) fL MCHC (31.0-37.0) g/dL Plt Count (150-450) k/uL Lymphocytes # (1.0-4.8) k/uL Sodium (137-145) mmol/L Chloride (98-107) mmol/L Carbon Dioxide (22-30) mmol/L BUN (9-20) mg/dL Glucose (74-99) mg/dL POC Glucose (mg/dL) 287 H 144 H 137 H (70-110) mg/dL Calcium (8.4-10.2) mg/dL 02/05/23 02/05/23 02/05/23 Range/Units 03:27 03:27 07:05 RBC 4.18 L (4.30-5.90) m/uL Hgb 12.8 L (13.0-17.5) gm/dL MCV 102.0 H (80.0-100.0) fL MCHC 30.0 L (31.0-37.0) g/dL Plt Count 133 L (150-450) k/uL Lymphocytes # 0.2 L (1.0-4.8) k/uL Sodium 135 L (137-145) mmol/L Chloride 97 L (98-107) mmol/L Carbon Dioxide 33 H (22-30) mmol/L BUN 32 H (9-20) mg/dL Glucose 174 H (74-99) mg/dL POC Glucose (mg/dL) 183 H (70-110) mg/dL Calcium 7.8 L (8.4-10.2) mg/dL Microbiology - Last 24 Hours (Table) 02/01/23 19:22 Blood Culture - Preliminary Blood Assessment and Plan Assessment: Acute on chronic hypoxic respiratory failure, currently on 8 L. The patient is off BiPAP. Nevertheless, the patient has developed immunity of consolidation a nd effusion ostomy atelectasis in the left lung base. His initial pro- calcitonin level was low. He was covered with IV Zosyn. I'm concerned of a superinfection. We'll collect sputum. We'll repeat pro-calcitonin level. Encouraged use of incentive spirometer. Aggressive pulmonary toileting. New-onset atrial flutter, converted into normal sinus rhythm and the patient is currently on metoprolol 25 mg 3 times a day, verapamil 80 mg 3 times a day and Eliquis. Mild systolic heart failure with an ejection fraction of 45% Acute COPD exacerbation. Chest x-ray showed no obvious focal consolidation or pneumonia. Negative for COVID-19, influenza, RSV. The patient is currently off the BiPAP and transitioned 8 L of oxygen nasal cannula he is less bronchospastic and wheezy compared to yesterday. Acute on chronic hypoxemic and hypercapnic respiratory failure secondary to above. Currently off BiPAP although he can still use BiPAP on and off during the day and overnight. He was transitioned to 4 L O2 nasal cannula History of previous respiratory failure and ventilator dependence related to COPD exacerbation Coronary artery disease with previous stents to the LAD and RCA Hypertension Hyperlipidemia Morbid Obesity with a BMI of 41 History of polysubstance abuse, on Suboxone outpatient Chronic back pain Chronic nicotine dependence, Current 1-1/2 pack per day smoker History of brain aneurysm Plan: Keep the patient on 8 L nasal cannula Check pro calcitonin level Check sputum Gram stain and culture Continue bronchodilators and steroids Continue combination Perforomist and Pulmicort updrafts twice a day Continue IV Zosyn Agree on starting metoprolol 25 milligrams by mouth 3 times a day, verapamil 80 mg 3 times a day and anticoagulation with Eliquis Cardiac rhythm is back into sinus Wean off Precedex and gradually discontinue as the patient is calm and comfortable and there is no agitation and his mental status improved considerably since yesterday TSH is within normal limits Offered diet Change IV fluids to KVO Give the patient goes of Lasix 40 mg IV push Moderate oxygenation wean down FiO2 to maintain a saturation above 90% Case was discussed with cardiology The patient will be kept in ICU We'll continue to follow We'll continue to follow, critical care evaluation > 30min Time with Patient: Greater than 30
[2023-02-05] MEDS ORDERED: FUROSEMIDE 10 MG/ML 4 ML VIAL IV STA (09:58)
[2023-02-05] MEDS: AMIODARONE 200 MG TAB PO SCH ×3 (10:15→20:55)
[2023-02-05] MEDS: VERAPAMIL 80 MG TAB PO SCH (10:45)
[2023-02-05 12:03] LABS: Glucose,Whole Blood 158 mg/dL (70-110)
[2023-02-05] MEDS: SUBOXONE SUBLINGUAL SCH (14:27)
[2023-02-05] MEDS: SODIUM CHLORIDE 0.9% 1,000 ML IV SCH (14:28)
--- NOTE | 2023-02-05 14:40 | P.PN ---
Progress Note - Text Progress Note Date: 02/05/23 Interval History: Patient was seen today for psychiatric follow-up regarding patient's delirium. Patient's nurse states that patient is more clear today and breathing better. Patient was seen today and appeared to be in less respiratory distress. He was more awake today during conversation. He claims that he is able sleep fairly last night. He continues to minimize his need for remaining in the hospital. He states that he feels safe to go home. He claims that "if I go home and I will feel good about this, right back". Continues to have fairly poor insight and judgment. This may appear to be fairly chronic and suggest fairly stubborn personality. Patient is denying any anxiety or any depression at this time. States that he has been improvement in his appetite. Claims that he would like to follow up with [facility] once he is discharged. At this time patient denies any suicidal or homical ideations, intent or plan. Patient denies any auditory, visual hallucinations and denies any paranoia or delusions. Patient denies any side effects from the medications and has been compliant with meds. Mental Status Exam: General Appearance: Patient appears to be obese, improving appearance. older than stated age is more alert today, attention span improving. Patient appears to have improving hygiene and grooming wearing hospital gown with poor eye contact. Behavior: Patient is calmly lying in bed without any agitated behavior. respiratory distress improving today, improving attention. Speech: Patient's speech is more clear today. Mood/Affect: Patient reports their mood is "ok", affect is congruent Suicidality/Homicidality: Patient denies having any suicidal or homicidal id eation intent or plan. Perceptions: Patient denies any visual hallucinations and denies any auditory hallucinations Though content/process: Rambles at times, more organized today. Rationalizing Memory and concentration: AOX3, improving attention span Judgment and insight: poor IMPRESSIONS: Delirium likely multifactorial, corticosteroids and toxic metabolic history of depressive disorder PLAN: -At this time patient DOES NOT meet criteria for inpatient psychiatric admission. -Patient DOES NOT have decision making capacity at this time and is unable to reason through and communicate/appreciate the risks, benefits and alternatives to treatment. he continues to minimize his need for hospitalization and persistent in going home and not understanding and appreciating the extent and risks of going home before being medically cleared. 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 please taper down steroids whenever safe to do so as this will continue to increase patients confusion/delirium. Continue with suboxone -Communicated plan to patient's nurse -at this time psychiatry will sign off. -Please contact with any questions.
--- NOTE | 2023-02-05 15:04 | P.PN ---
Subjective Progress Note Date: 02/05/23 Principal diagnosis: Possible pneumonia Patient is a 57-year-old male with a past medical history significant for COPD apparently the patient was recently admitted to the [facility] about 5 days ago and the patient left AGAINST MEDICAL ADVICE patient subsequently presenting back to the hospital with worsening shortness of breath and hypoxemia patient was noted to be in new onset atrial flutter, patient did have a CT at the outside facility and reported negative for cardiopulmonary disease and the patient was subsequently transferred to [facility] for management of his atrial fibrillation and rapid ventricular response On today's evaluation that is 02/05/2023, the patient remains to be afebrile, the patient is breathing comfortably on a 4 L nasal cannula, patient is more awake and alert today patient denies having any chest pain he did have a cough with some sputum production no nausea no vomiting no abdominal pain or diarrhea Objective - Vital Signs Vital signs: Vital Signs Temp 97.9 F 02/05/23 08:00 Pulse 72 02/05/23 11:01 Resp 18 02/05/23 11:00 BP 103/61 02/05/23 11:00 Pulse Ox 96 02/05/23 11:00 FiO2 50 02/05/23 04:00 Intake & Output 02/04/23 02/05/23 02/05/23 18:59 06:59 18:59 Intake Total 3043.864 0191.896 484.269 Output Total 1480 490 180 Balance -307.700 766.896 304.269 Weight 126.4 kg Intake: IV 1100 1000 365 Piperacillin-Tazobactam 3 200 100 100 .375 gm In Sodium Chloride 0.9% 100 ml @ 25 mls/hr IVPB Q8HR [facility] Rx# :[id number] Sodium Chloride 0.9% 1, 900 900 265 000 ml @ 20 mls/hr IV . Q24H [facility] Rx#:[id number] Intake, IV Titration 72.300 256.896 19.269 Amount Amiodarone 450 mg In 222.782 Dextrose 5% in Water 250 ml @ 0.5 MG/MIN 16.667 mls/hr IV .Q15H [facility] Rx#: [id number] Dexmedetomidine/0.9% NaCl 26.050 34.114 19.269 (Pmx) 400 mcg In Empty Bag 1 bag @ 0.2 MCG/KG/HR 6.165 mls/hr IV .[id number] [facility] Rx#:[id number] Diltiazem 125 mg In 39.25 Sodium Chloride 0.9% 100 ml @ 10 MG/HR 10 mls/hr IV .[id number] [facility] Rx#: [id number] Diltiazem 125 mg In 7 Sodium Chloride 0.9% 100 ml @ Per Protocol IV .Q0M [facility] Rx#:[id number] Oral 100 Output: Urine 1480 490 180 Other: Voiding Method Indwelling Catheter Indwelling Catheter Indwelling Catheter # Voids 1 - Exam GENERAL DESCRIPTION: Middle-age male lying in bed in no distress RESPIRATORY SYSTEM: Unlabored breathing , decreased intensity of breath sounds HEART: S1 S2 regular rate and rhythm , ABDOMEN: Soft , no tenderness EXTREMITIES: No edema feet - Labs CBC & Chem 7: 02/05/23 03:27 02/05/23 03:27 Labs: Abnormal Lab Results - Last 24 Hours (Table) 02/04/23 02/04/23 02/05/23 Range/Units 16:00 20:28 03:27 RBC 4.18 L (4.30-5.90) m/uL Hgb 12.8 L (13.0-17.5) gm/dL MCV 102.0 H (80.0-100.0) fL MCHC 30.0 L (31.0-37.0) g/dL Plt Count 133 L (150-450) k/uL Lymphocytes # 0.2 L (1.0-4.8) k/uL Sodium (137-145) mmol/L Chloride (98-107) mmol/L Carbon Dioxide (22-30) mmol/L BUN (9-20) mg/dL Glucose (74-99) mg/dL POC Glucose (mg/dL) 144 H 137 H (70-110) mg/dL Calcium (8.4-10.2) mg/dL 02/05/23 02/05/23 02/05/23 Range/Units 03:27 07:05 12:02 RBC (4.30-5.90) m/uL Hgb (13.0-17.5) gm/dL MCV (80.0-100.0) fL MCHC (31.0-37.0) g/dL Plt Count (150-450) k/uL Lymphocytes # (1.0-4.8) k/uL Sodium 135 L (137-145) mmol/L Chloride 97 L (98-107) mmol/L Carbon Dioxide 33 H (22-30) mmol/L BUN 32 H (9-20) mg/dL Glucose 174 H (74-99) mg/dL POC Glucose (mg/dL) 183 H 158 H (70-110) mg/dL Calcium 7.8 L (8.4-10.2) mg/dL Microbiology - Last 24 Hours (Table) 02/01/23 19:22 Blood Culture - Preliminary Blood Assessment and Plan (1) Acute exacerbation of chronic obstructive pulmonary disease Current Visit: Yes Status: Acute Code(s): J44.1 - CHRONIC OBSTRUCTIVE PULMONARY DISEASE W (ACUTE) EXACERBATION SNOMED Code(s): 878816175 Plan: 1patient presented to hospital with increasing shortness of breath which is likely multifactorial in this patient with a COPD exacerbation with a tracheobronchitis and concern for possible worsening with atrial fibrillation and rapid ventricular response, clinically not behaving as pneumonia as the patient did not have any fever White count has been normal chest x-ray no acute infiltrate 2-patient x-ray shows mostly left-sided infiltrated the question of possible pneumonia patient seemed to have some clinical improvement, patient to continue Zosyn , sputum cultures has been obtained and results will be followed, monitor his clinical course closely Time with Patient: Less than 30
--- NOTE | 2023-02-05 15:09 | P.PN ---
Subjective Progress Note Date: 02/05/23 This is a 57-year-old male who follows with Dr. Marty Richard in the outpatient setting was recently admitted with shortness of breath with COPD exacerbation with acute hypoxic respiratory failure. Patient has been intermittently using BiPAP as well as nasal cannula. Patient continues to be in the ICU. Multiple medical consultations following including cardiology is patient is in uncontrolled rhythm with atrial flutter with rapid ventricular rate and heart rate increased into the 150s and 160s today. Patient extremely agitated and had an episode of ripping out his IVs and wanting to leave AGAINST MEDICAL ADVICE. Nursing staff petitioning the patient for increased agitation and will have psyc hiatric evaluation as well. Social work is following working as patient may have a legal guardian. Patient is currently afebrile denies chest pain or palpitations. Patient reports his heart rate was elevated because he was worked up and agitated. No reports of nausea or vomiting noted patient is tolerating diet. 02/05/2023 Patient is seen and evaluated in follow-up in the ICU currently maintained on low-dose Precedex as patient was significantly agitated and wanted to leave AGAINST MEDICAL ADVICE. 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 Patient is lethargic currently although arousable. Patient being followed by cardiology as well and currently sinus rhythm on oral amiodarone along with metoprolol and is anticoagulated with eliquis. Patient also continues on IV antibiotics in the form of Zosyn with concerns of aspiration pneumonia. Patient is currently afebrile and blood pressures are on the lower side although not requiring press or support. WBC is within normal limits at 5.6, hemoglobin is 12.8 and platelets are 133. Sodium is 135 with a potassium of 4.9 and creatinine is 0.7 by. Patient had chest x-ray this morning showing ongoing left upper lobe collapse and consolidation along with left total effusion which is slightly increased with concerns of possible mild pulmonary vascular congestion. Patient did receive a dose of IV Lasix today. Recommend follow-up labs and repeat chest x-ray in the a.m. Review of systems: Unable to obtain as patient is currently maintained on Precedex and lethargic All medications have been reviewed Active Medications Acetaminophen (Acetaminophen Tab 325 Mg Tab) 650 mg PO Q6HR PRN PRN Reason: Mild Pain or Fever > 100.5 Last Admin: 02/02/23 14:51 Dose: 650 mg Albuterol/Ipratropium (Ipratropium-Albuterol 3 Ml Neb) 3 ml INHALATION RT-QID [facility] Last Admin: 02/05/23 10:50 Dose: 3 ml Albuterol/Ipratropium (Ipratropium-Albuterol 3 Ml Neb) 3 ml INHALATION RT-Q2H PRN PRN Reason: Shortness Of Breath Or Wheezing Last Admin: 02/04/23 00:50 Dose: 3 ml Amiodarone HCl (Amiodarone 200 Mg Tab) 200 mg PO TID [facility] Last Admin: 02/05/23 10:15 Dose: 200 mg Apixaban (Apixaban 5 Mg Tab) 5 mg PO BID [facility]; Protocol Last Admin: 02/05/23 09:00 Dose: 5 mg Aspirin (Aspirin 81 Mg) 81 mg PO DAILY [facility] Last Admin: 02/05/23 09:00 Dose: 81 mg Atorvastatin Calcium (Atorvastatin 40 Mg Tab) 40 mg PO DAILY [facility] Last Admin: 02/05/23 09:00 Dose: 40 mg Budesonide (Budesonide 1 Mg/2 Ml Nebu) 1 mg INHALATION RT-BID [facility] Last Admin: 02/05/23 07:49 Dose: 1 mg Dextrose/Water (Dextrose 50% Syringe 50 Ml) 25 ml IVP PER PROTOCOL PRN; Protocol PRN Reason: Hypoglycemia Dextrose/Water (Dextrose 50% Syringe 50 Ml) 50 ml IVP PER PROTOCOL PRN; Protocol PRN Reason: Hypoglycemia Formoterol Fumarate (Formoterol Fumarate 20 Mcg/2 Ml Nebu) 20 mcg INHALATION RT-BID [facility] Last Admin: 02/05/23 07:49 Dose: 20 mcg Gabapentin (Gabapentin 300 Mg Cap) 300 mg PO TID [facility] Last Admin: 02/05/23 09:00 Dose: 300 mg Haloperidol Lactate (Haloperidol Lactate 5 Mg/Ml 1 Ml Vial) 5 mg IM Q6HR PRN PRN Reason: Agitation or Acute Psychosis Sodium Chloride (Saline 0.9%) 1,000 mls @ 20 mls/hr IV .Q24H [facility] Last Admin: 02/05/23 14:28 Dose: Not Given Piperacillin Sod/Tazobactam (Sod 3.375 gm/ Sodium Chloride) 100 mls @ 25 mls/hr IVPB Q8HR [facility]; Protocol Last Admin: 02/05/23 09:00 Dose: 25 mls/hr Dexmedetomidine HCl 400 mcg/ (IV Solution) 100 mls @ 6.165 mls/hr IV .[id number] [facility]; Protocol Last Admin: 02/05/23 10:15 Dose: 0.1 mcg/kg/hr, 3.083 mls/hr Insulin Aspart (Insulin Aspart (Novolog) 100 Unit/Ml Vial) 0 unit SQ ACHS [facility]; Protocol Last Admin: 02/05/23 12:04 Dose: 3 unit Lisinopril (Lisinopril 20 Mg Tab) 20 mg PO DAILY [facility] Last Admin: 02/05/23 09:07 Dose: 20 mg Methylprednisolone Sodium Succinate (Methylprednisolone Sod Succi 125 Mg/2 Ml Vial) 60 mg IV Q6HR [facility] Last Admin: 02/05/23 12:04 Dose: 60 mg Metoprolol Tartrate (Metoprolol Tartrate 25 Mg Tab) 25 mg PO TID [facility] Last Admin: 02/05/23 09:07 Dose: 25 mg Naloxone HCl (Naloxone 0.4 Mg/Ml 1 Ml Vial) 0.2 mg IV Q2M PRN PRN Reason: Opioid Reversal Nicotine (Nicotine 21mg/24hr Patch) 1 patch TRANSDERM DAILY [facility] Last Admin: 02/05/23 09:00 Dose: 1 patch Non-Formulary Medication (Vilazodone Hcl [Viibryd]) 20 mg PO DAILY [facility] Last Admin: 02/05/23 09:04 Dose: Not Given Suboxone ( Buprenorphine/Naloxone) 4mg/1mg* * Sl Film 1 film SUBLINGUAL DAILY@1400 [facility] Last Admin: 02/05/23 14:27 Dose: 1 film Suboxone ( Buprenorphine/Naloxone) 4mg/1mg* * Sl Film 8 mg PO BID@ [facility] Last Admin: 02/04/23 21:37 Dose: 8 mg Non Formulary Drug ( Buprenorphine/Naloxone) 4mg/1mg Sl 2 each SUBLINGUAL BID@ [facility] Last Admin: 02/05/23 09:00 Dose: 2 each Pantoprazole Sodium (Pantoprazole 40 Mg/10 Ml Vial) 40 mg IVP DAILY [facility] Last Admin: 02/05/23 09:00 Dose: 40 mg Quetiapine Fumarate (Quetiapine 100 Mg Tab) 100 mg PO HS [facility] Last Admin: 02/04/23 20:12 Dose: Not Given Tamsulosin HCl (Tamsulosin 0.4 Mg Cap.Er.24h) 0.4 mg PO DAILY [facility] Last Admin: 02/05/23 09:00 Dose: 0.4 mg PHYSICAL EXAMINATION: GENERAL: The patient is alert and oriented x2, sleeping, minimally arousable Well developed, well nourished. Morbidly obese HEENT: Pupils are round and equally reacting to light. EOMI. no scleral icterus. No conjunctival pallor. Normocephalic, atraumatic. No pharyngeal erythema. No thyromegaly. CARDIOVASCULAR: S1 and S2 muffled, irregular , currently sinus rhythm on the monitor PULMONARY: diminished breath sounds bilaterally with some coarse scattered rhonchi and crackles noted. ABDOMEN: soft. Nontender on exam. obese. non-distended, normoactive bowel sounds. No palpable organomegaly. MUSCULOSKELETAL: No joint swelling or deformity. EXTREMITIES: No cyanosis, clubbing, or pedal edema. NEUROLOGICAL: Gross neurological examination did not reveal any focal deficits. Diffuse weakness SKIN: No rashes. Assessment: Shortness of breath with COPD exacerbation, requiring BiPAP and nasal cannula Possible acute bilateral pneumonia Acute on chronic hypoxic respiratory failure secondary to above Atrial flutter with RVR, new onset, currently converted to sinus rhythm and rate controlled Acute on chronic systolic heart failure with an EF of 45% diabetes mellitus, type II uncontrolled with Hyperglycemia, hemoglobin A1c is 5.9 Coronary artery disease history with stenting Hypertension Hyperlipidemia History of brain aneurysm Morbid obesity with a BMI of 41.3 Continued ongoing nicotine dependence GI prophylaxis DVT prophylaxis Full code Plan: Recommend to continue with current medications and management and continues to be in the ICU. Patient became increasingly agitated and aggressive toward staff and pulling at IVs and threatening to leave AGAINST MEDICAL ADVICE. Per nursing staff patient has been petitioned with psychiatry following. Patient is currently maintained on Precedex low-dose and will continue for now. Home medications have been resumed Chest x-ray shows some vascular congestion with effusion and was given a dose of Lasix recommend follow-up chest x-ray repeat labs Patient is not able to leave AGAINST MEDICAL ADVICE and social work following and family was made aware. Patient has been petitioned. Patient also being followed by cardiology and patient converted this morning currently sinus rhythm on the monitor and switched to metoprolol and oral amiodarone, Cardizem was discontinued Pulmonary following as well and patient is continued on IV antibiotics in the form of Zosyn with concerns of pneumonia and is also continued on IV steroids along with breathing inhalational treatments. Repeat pro-calcitonin ordered and pending along with sputum culture. Medical record shows history of diabetes mellitus although is not taking any medications on current home medications and hemoglobin A1c is 5.9. Hyperglycemia possibly steroid-induced and will continue Accu-Cheks before meals and at bedtime and current sliding scale regimen Recommend wean FiO2 as tolerated and follow-up labs ordered, weaning down as tolerated and currently maintained on 5-6 L via nasal cannula Follow-up chest x-ray in the a.m. and will continue to monitor closely. Overall prognosis is guarded at this time The impression and plan of care has been dictated by Renetta Romero, nurse practitioner as directed. Dr. Dandy MD I have performed a history and examination and MDM of this patient, discussed the same with the dictator, and agree with the dictator's assessment and plan as written ,documented as a scribe. Based on total visit time, I have performed more than 50% of the visit. Any additional findings or plans will be noted. Objective - Vital Signs Vital signs: Vital Signs Temp 97.9 F 02/05/23 08:00 Pulse 72 02/05/23 10:00 Resp 19 02/05/23 10:00 BP 102/73 02/05/23 10:00 Pulse Ox 91 L 02/05/23 10:00 FiO2 50 02/05/23 04:00 Intake & Output 02/04/23 02/05/23 02/05/23 18:59 06:59 18:59 Intake Total 0188.974 9684.896 464.269 Output Total 1480 490 140 Balance -307.700 766.896 324.269 Weight 126.4 kg Intake: IV 1100 1000 345 Piperacillin-Tazobactam 3 200 100 100 .375 gm In Sodium Chloride 0.9% 100 ml @ 25 mls/hr IVPB Q8HR [facility] Rx# :[id number] Sodium Chloride 0.9% 1, 900 900 245 000 ml @ 20 mls/hr IV . Q24H [facility] Rx#:[id number] Intake, IV Titration 72.300 256.896 19.269 Amount Amiodarone 450 mg In 222.782 Dextrose 5% in Water 250 ml @ 0.5 MG/MIN 16.667 mls/hr IV .Q15H [facility] Rx#: [id number] Dexmedetomidine/0.9% NaCl 26.050 34.114 19.269 (Pmx) 400 mcg In Empty Bag 1 bag @ 0.2 MCG/KG/HR 6.165 mls/hr IV .[id number] [facility] Rx#:[id number] Diltiazem 125 mg In 39.25 Sodium Chloride 0.9% 100 ml @ 10 MG/HR 10 mls/hr IV .[id number] [facility] Rx#: [id number] Diltiazem 125 mg In 7 Sodium Chloride 0.9% 100 ml @ Per Protocol IV .Q0M [facility] Rx#:[id number] Oral 100 Output: Urine 1480 490 140 Other: Voiding Method Indwelling Catheter Indwelling Catheter # Voids 1 - Labs CBC & Chem 7: 02/05/23 03:27 02/05/23 03:27 Labs: Abnormal Lab Results - Last 24 Hours (Table) 02/04/23 02/04/23 02/04/23 Range/Units 12:04 16:00 20:28 RBC (4.30-5.90) m/uL Hgb (13.0-17.5) gm/dL MCV (80.0-100.0) fL MCHC (31.0-37.0) g/dL Plt Count (150-450) k/uL Lymphocytes # (1.0-4.8) k/uL Sodium (137-145) mmol/L Chloride (98-107) mmol/L Carbon Dioxide (22-30) mmol/L BUN (9-20) mg/dL Glucose (74-99) mg/dL POC Glucose (mg/dL) 287 H 144 H 137 H (70-110) mg/dL Calcium (8.4-10.2) mg/dL 02/05/23 02/05/23 02/05/23 Range/Units 03:27 03:27 07:05 RBC 4.18 L (4.30-5.90) m/uL Hgb 12.8 L (13.0-17.5) gm/dL MCV 102.0 H (80.0-100.0) fL MCHC 30.0 L (31.0-37.0) g/dL Plt Count 133 L (150-450) k/uL Lymphocytes # 0.2 L (1.0-4.8) k/uL Sodium 135 L (137-145) mmol/L Chloride 97 L (98-107) mmol/L Carbon Dioxide 33 H (22-30) mmol/L BUN 32 H (9-20) mg/dL Glucose 174 H (74-99) mg/dL POC Glucose (mg/dL) 183 H (70-110) mg/dL Calcium 7.8 L (8.4-10.2) mg/dL Microbiology - Last 24 Hours (Table) 02/01/23 19:22 Blood Culture - Preliminary Blood
[2023-02-05 16:51] LABS: Glucose,Whole Blood 150 mg/dL (70-110)
[2023-02-05 20:26] LABS: Glucose,Whole Blood 382 mg/dL (70-110)
[2023-02-05 20:31] LABS: Glucose,Whole Blood 345 mg/dL (70-110)
[2023-02-05] MEDS: QUEtiapine 100 MG TAB PO SCH (20:53)
[2023-02-06] MEDS: methylPREDNISolone SOD SUCCI 125 MG/2 ML VIAL IV SCH ×2 (00:36→06:49)
[2023-02-06] MEDS: PIPERACILLIN-TAZOBACTAM 3.375 GM in SODIUM CHLORIDE 0.9% 100 ML IVPB SCH ×3 (00:36→17:46)
[2023-02-06 04:26] LABS: Basophils % (A) 0 %; Eosinophils % (A) 0 %; HCT 42.4 % (39.0-53.0); HGB 13.2 gm/dL (13.0-17.5); Hypochromasia Moderate; Lymphocytes # (A) 0.2 k/uL (1.0-4.8); Lymphocytes % (A) 4 %; MCH 31.1 pg (25.0-35.0); MCHC 31.1 g/dL (31.0-37.0); Macrocytosis Slight; Mean Platelet Volume 10.2; Monocytes # (A) 0.3 k/uL (0-1.0); Monocytes % (A) 4 %; Neutrophils # (A) 5.7 k/uL (1.3-7.7); Neutrophils % (A) 91 %; Platelet Count 122 k/uL (150-450); RBC 4.24 m/uL (4.30-5.90); RDW 14.4 % (11.5-15.5); WBC 6.3 k/uL (3.8-10.6)
[2023-02-06 04:29] LABS: ALT 76 U/L (4-49); AST 34 U/L (17-59); African American GFR (CKD) >90 (>60 ml/min/1.73 sqM); Albumin 3.2 g/dL (3.5-5.0); Alkaline Phosphatase 33 U/L (38-126); Blood Urea Nitrogen 34 mg/dL (9-20); Calcium 7.7 mg/dL (8.4-10.2); Chloride 95 mmol/L (98-107); Glucose 105 mg/dL (74-99); Non-African American GFR(CKD) >90 (>60 ml/min/1.73 sqM); Potassium 5.1 mmol/L (3.5-5.1); Sodium 137 mmol/L (137-145); Total Bilirubin 0.7 mg/dL (0.2-1.3); Total Protein 5.4 g/dL (6.3-8.2)
[2023-02-06 04:35] LABS: Anion Gap 8 mmol/L; Carbon Dioxide 34 mmol/L (22-30)
[2023-02-06 06:39] LABS: Glucose,Whole Blood 188 mg/dL (70-110)
[2023-02-06] MEDS: INSULIN ASPART (NovoLOG) 100 UNIT/ML VIAL SQ SCH ×4 (06:49→21:17)
--- NOTE | 2023-02-06 07:05 | XR ---
EXAMINATION TYPE: XR chest 1V portable DATE OF EXAM: 02/06/2023 6:24 AM COMPARISON: Chest radiographs from 02/05/2023 TECHNIQUE: XR chest 1V portable Portable AP radiograph of the chest. CLINICAL INDICATION:Male, 57 years old with history of pl. effusion; FINDINGS: Lungs/Pleura: Blunting of the left costophrenic angle with adjacent basilar airspace opacities. Inter stitial prominence on the right has decreased. No pneumothorax. Heart/mediastinum: Cardiomediastinal silhouette is enlarged and stable. Musculoskeletal: No acute osseous pathology. Metallic shrapnel is apparent over the left proximal hum erus. IMPRESSION: Similar small left pleural effusion with left basilar patchy airspace opacities which may represent a telectasis and/or pneumonia.
[2023-02-06] MEDS: FORMOTEROL FUMARATE 20 MCG/2 ML NEBU INHALATION SCH (07:48)
[2023-02-06] MEDS: BUDESONIDE 1 MG/2 ML NEBU INHALATION SCH (07:48)
[2023-02-06] MEDS: IPRATROPIUM-ALBUTEROL 3 ML NEB INHALATION SCH ×4 (07:48→19:50)
--- NOTE | 2023-02-06 08:43 | P.PN ---
Subjective Progress Note Date: 02/06/23 I am seeing this patient today 02/02/2023 in new consultation in regard to ICU management for acute hypoxic and hypercapnic respiratory failure related to COPD exacerbation and new onset atrial flutter. Patient is a 57-year-old white male with past medical history significant for severe COPD with an FEV1 39% of predicted, chronic oxygen dependence normally maintained on 3 L nasal cannula, current 1-1/2 pack per day smoker, previous respiratory failure and mechanical ventilator dependence, coronary artery disease with previous stents to the LAD and RCA, polysubstance abuse, chronic back pain, and previous brain aneurysms. Patient was transferred from [facility] yesterday afternoon for worsening dyspnea and hypoxia. He was reportedly previously seen at the outside facility 5 days prior, and left AGAINST MEDICAL ADVICE, because he wanted to attend his brother's . He did return to [facility] for dyspnea and chest palpitations. He was found to be in atrial flutter. Initial workup at outside facility included a nonenhanced chest CT which showed no acute cardiopulmonary process. Patient was placed on the BiPAP and transferred to [facility]. On arrival, VBG showed a pCO2 of 103, pH of 7.31. Chest x-ray showed cardiomegaly without any significant cardiopulmonary disease/process. He denies any fever, chills, cough, chest pain. Denies sick contacts. He also denies any weight gain, lower extremity swelling, orthopnea, lightheadedness, syncope. Patient is currently resting in bed, on BiPAP with settings 12/6 and FiO2 50%. He is calm and tolerating the BiPAP. His tidal volumes are only 200-250 ML's, respiratory rate 20 breaths per minute, and IPAP was increased to 14. Patient currently has Cardizem infusing at 15 mg per hour and low intensity heparin infusion per protocol. Heart rhythm is atrial flutter. His heart rate was as high as 150 bpm on arrival, and currently more controlled, with a rate of 100- 115 bpm. He is negative for influenza, RSV, COVID-19. CBC on arrival was unremarkable. Empirically covered on Zosyn. Blood cultures are pending. He remains afebrile. BMP shows sodium 138, potassium 4.7, chloride 85, serum CO2 46, BUN 20, creatinine 0.77, glucose 139. Normal saline infusing at 75 mL per hour. D-dimer was 0.41. NT proBNP was elevated at 1410. Currently receiving a combination of budesonide inhalation, formoterol inhalation, DuoNeb's, and IV Solu-Medrol. Vital signs are stable. On today's evaluation of 02/03/2023, the patient is being seen for a follow-up. He is still lethargic. Arousable. He communicates effectively. His answering questions. He stated on BiPAP throughout the day yesterday at a pressures of 14/6 and the patient is currently off the BiPAP and he is on nasal cannula at 4 L. His to bronchospastic and wheezy and congested. He remains on a combination of bronchodilators and steroids. Note that the patient is chronically dependent on oxygen and he takes oxygen at 3 L at home. At the same time, the patient remains in atrial flutter. He remains on Cardizem drip at 15 mg and he was started also on beta blockers and currently is on metoprolol at a dose of 25 mg twice a day and within the process of gradually weaning down the Cardizem drip. Echocardiogram was done yesterday and the patient was found to have a left ventricular ejection fraction of around 45%. The patient had no significant valvular abnormalities. He did have some mild mitral regurgitation and aortic stenosis. He had dilatation of the right ventricle related to chronic lung disease and his right ventricular systolic pressure was 39 mmHg. He remains on IV heparin. The white cell count today's of 4.9 with a hemoglobin of 11.9 and a platelet count of 143, BUN is 22 with a creatinine of 0.7. Free T4 is normal at 0.9. Blood sugars are modestly elevated and the patient is on a sliding scale insulin coverage. He is on IV Zosyn as an empiric antibiotic coverage. Note that his pro calcitonin level at the time of admission was mildly elevated. His chest x-ray somewhat debilitated and the patient has a limited infiltrate/effusion left lung base. No other significant events overnight. No agitation. Mental status is adequate. Hemoglobin A1c is at 7.8. On 02/04/2023, the patient is being seen for a follow-up. He seems to be much more awake compared to yesterday and less lethargic. He is slightly unreasonable and he wants to go home as he states that he lives across the street from the hospital. Nevertheless, he is not healthy enough or stable enough to be discharged out of the intensive care unit. The patient is currently off the BiPAP. He was on a BiPAP throughout the night and he was taken off the BiPAP and currently is on oxygen at 4 L. His last rhonchus spastic and wheezing compared to yesterday. He is to be less short of breath and the breathing is more comfortable. However, he has an ongoing issue with atrial flutter. He remains in flutter 221 with a rapid heart rate of 160. Overnight, cardiology has been involved and the patient was given verapamil manager construction in combination with metoprolol and the patient was also maintained on Cardizem at 15 mg an hour. Unfortunately, no response. He continues to be tachycardic. He is on anti-cognition with Eliquis. He is on IV fluids with normal saline at rate of 75 mL an hour. Adequate urine output. Blood work from today shows a white cell count of 4.2, hemoglobin 12.5, platelet count of 135, knee and is a 26 with a creatinine of 0.7 and sodium level is at 135. He remains on bronchodilators. He remains on IV Solu-Medrol 60 mg every 6 hours. He was given Seroquel 200 mg at bedtime as of yesterday to improve his agitation/restlessness/delirium. He remains on empiric antibiotic coverage with IV Zosyn. As mentioned, is kept on aspirin and anticoagulation with Eliquis was started yesterday. He is following commands and answering questions. No focal neurological deficits. 02/05/2023, the patient is much more stable compared to yesterday. Noted the patient was having significant restlessness around with some altered mentation to the point where the patient wanted to leave AMA. I petitioned the patient. A psych evaluation was obtained. The patient was placed on Precedex which is still running at a dose of 0.1 mcg/kg/m. He is much more comfortable and rested and communicating and is alert and oriented on today's evaluation. At the same time, is less short of breath. Less bronchospastic and wheezy compared to yesterday. In terms of his atrial flutter, the patient was placed on a comb ination of Cardizem drip and amiodarone drip yesterday. Ultimately converted into sinus and this morning he is off the Cardizem drip and is off the amiodarone drip and his heart rate is normal sinus rhythm with a rate of 75. He is currently on metoprolol at a dose of 25 mg 3 times a day. He is also on anticoagulation with Eliquis 5 mg twice a day. As mentioned, his cardiac rhythm is back to sinus. He was also given verapamil 80 mg by mouth 3 times a day for rate control. In terms of his breathing and oxygenation, the patient is currently off the BiPAP. Is on 8 L of oxygen by nasal cannula. The chest x-ray from today is showing opacification of the left lung base, could be and atelect asis along with an area of pleural effusion. The patient will be provided incentive spirometer. The white cell count is at 5.6 with a hemoglobin of 12.8 and a platelet count of 133. BUN is at 32 with a creatinine of 0.7 and his sodium level is at 135. He remains on bronchodilators. He remains on IV Solu- Medrol 60 mg every 6 hours. He remains on IV Zosyn as an empiric antibiotic coverage. Blood cultures have been negative. His pro calcitonin level at the time of admission was 0.03. 02/06/2023, the patient is awake and alert and communicating. He seems to much more reasonable this conversations today. He uses sun wanted to go home. He states that he has bills he has to make arrangements for living arrangements in his apartment. Is also worried that he doesn't pay today rants, he may be evicted from his apartment. Based on that, the patient is very much eager to go home. Is currently on 5 L of oxygen by nasal cannula. Is awake and alert. Breathing is nonlabored. No shortness of breath at rest. His cardiac rhythm is back into normal sinus rhythm and we have not witnessed any further episodes of atrial flutter over the past 24 hours. He is communicating. His swallowing. She is tolerating diet. Doppler signals at 6.3 with a hemoglobin 13.2 and a platelet count of 142. He had a 34 with a creatinine of 0.7 and his sodium level is 137. The patient's chest x-ray from today shows a small left-sided pleural effusion and some patchy infiltrates in the lung bases bilaterally. Otherwise no other acute abnormalities are seen. The patient remains on bronchodilators. The patient remains on IV Solu-Medrol. The patient is on empiric antibiotic coverage with IV Zosyn. The patient was switched to oral amiodarone and anticoagulation with Eliquis as of yesterday. Objective - Vital Signs Vital signs: Vital Signs Temp 98.7 F 02/06/23 08:00 Pulse 86 02/06/23 08:17 Resp 20 02/06/23 08:00 BP 136/82 02/06/23 08:00 Pulse Ox 95 02/06/23 08:00 FiO2 50 02/05/23 04:00 Intake & Output 02/05/23 02/06/23 02/06/23 18:59 06:59 18:59 Intake Total 589.092 8686.115 750 Output Total 2205 1180 310 Balance -1640.731 98.115 440 Weight 124.7 kg Intake: IV 445 220 150 Invasive Line 5 10 Invasive Line 6 10 Piperacillin-Tazobactam 3 100 100 .375 gm In Sodium Chloride 0.9% 100 ml @ 25 mls/hr IVPB Q8HR [facility] Rx# :[id number] Sodium Chloride 0.9% 1, 345 220 30 000 ml @ 20 mls/hr IV . Q24H [facility] Rx#:[id number] Intake, IV Titration 19.269 58.115 Amount Dexmedetomidine/0.9% NaCl 19.269 58.115 (Pmx) 400 mcg In Empty Bag 1 bag @ 0.2 MCG/KG/HR 6.165 mls/hr IV .[id number] [facility] Rx#:[id number] Oral 100 1000 600 Output: Urine 2205 1180 310 Other: Voiding Method Indwelling Catheter Indwelling Catheter - Exam GENERAL EXAM: Alert, 57-year-old white male, on the 5 L nasal cannula HEAD: Normocephalic and atraumatic EYES: Normal reaction of pupils, equal size. NOSE: Clear with pink turbinates. THROAT: No erythema or exudates. NECK: No masses, no JVD. CHEST: No chest wall deformity. LUNGS: Equal air entry with expiratory wheezes throughout. no crackles, rhonchi or focal dullness. On 5 L of oxygen by nasal cannula and the patient is less short of breath unless bronchus spastic and wheezing compared to yesterday CVS: S1 and S2 normal with no audible murmur, ABDOMEN: Obese abdomen. No hepatosplenomegaly, active bowel sounds, no guarding or rigidity. SPINE: No scoliosis or deformity SKIN: No rashes CENTRAL NERVOUS SYSTEM: No focal deficits, tone is normal in all 4 extremities. EXTREMITIES: There is no peripheral edema, clubbing, or cyanosis. Peripheral pulses are intact. - Labs CBC & Chem 7: 02/06/23 03:15 02/06/23 03:15 Labs: Abnormal Lab Results - Last 24 Hours (Table) 02/05/23 02/05/23 02/05/23 Range/Units 12:02 16:50 20:24 RBC (4.30-5.90) m/uL Plt Count (150-450) k/uL Lymphocytes # (1.0-4.8) k/uL Chloride (98-107) mmol/L Carbon Dioxide (22-30) mmol/L BUN (9-20) mg/dL Glucose (74-99) mg/dL POC Glucose (mg/dL) 158 H 150 H 382 H (70-110) mg/dL Calcium (8.4-10.2) mg/dL ALT (4-49) U/L Alkaline Phosphatase (38-126) U/L Total Protein (6.3-8.2) g/dL Albumin (3.5-5.0) g/dL 02/05/23 02/06/23 02/06/23 Range/Units 20:29 03:15 03:15 RBC 4.24 L (4.30-5.90) m/uL Plt Count 122 L (150-450) k/uL Lymphocytes # 0.2 L (1.0-4.8) k/uL Chloride 95 L (98-107) mmol/L Carbon Dioxide 34 H (22-30) mmol/L BUN 34 H (9-20) mg/dL Glucose 105 H (74-99) mg/dL POC Glucose (mg/dL) 345 H (70-110) mg/dL Calcium 7.7 L (8.4-10.2) mg/dL ALT 76 H (4-49) U/L Alkaline Phosphatase 33 L (38-126) U/L Total Protein 5.4 L (6.3-8.2) g/dL Albumin 3.2 L (3.5-5.0) g/dL 02/06/23 Range/Units 06:38 RBC (4.30-5.90) m/uL Plt Count (150-450) k/uL Lymphocytes # (1.0-4.8) k/uL Chloride (98-107) mmol/L Carbon Dioxide (22-30) mmol/L BUN (9-20) mg/dL Glucose (74-99) mg/dL POC Glucose (mg/dL) 188 H (70-110) mg/dL Calcium (8.4-10.2) mg/dL ALT (4-49) U/L Alkaline Phosphatase (38-126) U/L Total Protein (6.3-8.2) g/dL Albumin (3.5-5.0) g/dL Microbiology - Last 24 Hours (Table) 02/05/23 11:00 Gram Stain - Preliminary Sputum Sputum Culture - Preliminary 02/01/23 19:22 Blood Culture - Preliminary Blood Assessment and Plan Assessment: Acute on chronic hypoxic respiratory failure, currently on 5 L. The patient is off BiPAP. The patient did have a consolidation left lower lobe with small effusion. Repeat chest x-ray from today shows improving aeration of the left lung base. There is a small left pleural effusion still present. He is actually patient is improved considerably. New-onset atrial flutter, converted into normal sinus rhythm and the patient is currently on metoprolol 25 mg 3 times a day, verapamil 80 mg 3 times a day and Eliquis. Mild systolic heart failure with an ejection fraction of 45% Acute COPD exacerbation. Chest x-ray showed no obvious focal consolidation or pneumonia. Negative for COVID-19, influenza, RSV. The patient is currently off the BiPAP and transitioned 5 L of oxygen nasal cannula Acute on chronic hypoxemic and hypercapnic respiratory failure secondary to above. Currently off BiPAP although he can still use BiPAP on and off during the day and overnight. He was transitioned to 5 L O2 nasal cannula History of previous respiratory failure and ventilator dependence related to COPD exacerbation Coronary artery disease with previous stents to the LAD and RCA Hypertension Hyperlipidemia Morbid Obesity with a BMI of 41 History of polysubstance abuse, on Suboxone outpatient Chronic back pain Chronic nicotine dependence, Current 1-1/2 pack per day smoker History of brain aneurysm Plan: Keep the patient on 5 L nasal cannula Lasix 40 mg IV push 1 Stop the IV Solu-Medrol and put the patient prednisone burst taper Stop the Zosyn and put the patient is course of Augmentin 875 mg by mouth twice a day Check pro calcitonin level was 0.03 Check sputum Gram stain and culture Continue bronchodilators and steroids Stop the Perforomist and the Pulmicort and switch this patient to Symbicort 2 puffs twice a day metoprolol 25 milligrams by mouth 3 times a day and Eliquis Cardiac rhythm is back into sinus TSH is within normal limits Change IV fluids to KVO Moderate oxygenation wean down FiO2 to maintain a saturation above 90% Case was discussed with cardiology Discontinue the Duong catheter The patient may be chest with out of the intensive care unit Discharge planning is per medicine We'll continue to follow
[2023-02-06] MEDS ORDERED: FUROSEMIDE 10 MG/ML 4 ML VIAL IV STA (09:27)
[2023-02-06] MEDS: SYMBICORT 160-4.5 MCG INHALER INHALATION SCH ×2 (09:42→19:50)
[2023-02-06] MEDS: lisinopriL 20 MG TAB PO SCH (09:50)
[2023-02-06] MEDS: ASPIRIN 81 MG PO SCH (09:50)
[2023-02-06] MEDS: GABAPENTIN 300 MG CAP PO SCH ×3 (09:50→21:17)
[2023-02-06] MEDS: TAMSULOSIN 0.4 MG CAP.ER.24H PO SCH (09:50)
[2023-02-06] MEDS: ATORVASTATIN 40 MG TAB PO SCH (09:50)
[2023-02-06] MEDS: AMIODARONE 200 MG TAB PO SCH ×3 (09:50→21:17)
[2023-02-06] MEDS: APIXABAN 5 MG TAB PO SCH ×2 (09:50→21:17)
[2023-02-06] MEDS: METOPROLOL TARTRATE 25 MG TAB PO SCH ×2 (09:51→21:17)
[2023-02-06] MEDS: PANTOPRAZOLE 40 MG/10 ML VIAL IVP SCH (09:51)
[2023-02-06] MEDS: NICOTINE 21MG/24HR PATCH TRANSDERM SCH (09:51)
[2023-02-06] MEDS: AMOXIC-POT CLAV 875-125MG 1 EACH TAB PO SCH ×2 (09:54→21:17)
[2023-02-06] MEDS: predniSONE 20 MG TAB PO SCH (09:58)
[2023-02-06 10:07] VITALS: BMI 41.8
[2023-02-06] MEDS: NALOXONE SUBLINGUAL SCH (10:14)
[2023-02-06] MEDS: BUPRENORPHINE SUBLINGUAL SCH (10:14)
[2023-02-06] MEDS: polyethylene glycoL 3350 17 GM POWD.PACK PO SCH (10:21)
--- NOTE | 2023-02-06 11:12 | PN ---
PROGRESS NOTE SUBJECTIVE: Andre is a 57-year-old gentleman, who is admitted to hospital with COPD exacerbation and we were consulted for atrial flutter with rapid ventricular rate. The patient was treated with amiodarone and converted to sinus rhythm. This morning, he remains in normal sinus rhythm and is free of symptoms. CURRENT MEDICATIONS: Include lisinopril 20 mg daily, Lopressor 25 b.i.d., and Eliquis 5 b.i.d. along with amiodarone 200 t.i.d. PHYSICAL EXAMINATION: VITAL SIGNS: On exam, heart rate is 85 beats per minute, blood pressure is 120/76, respiratory rate 18. CHEST: Reveals diminished air entry at the bases. HEART: Reveals first and second heart sounds. No gallop. No murmur. ABDOMEN: Soft. EXTREMITIES: Exam of extremities did not reveal any edema. LABORATORY DATA: Lab show a hemoglobin of 15.2, potassium is 5.1, creatinine is 0.7. ASSESSMENT: 1. Paroxysmal atrial fibrillation. 2. Chronic obstructive pulmonary disease exacerbation. PLAN: Patient will continue current medications. I am going to decrease the dose of lisinopril to 10 mg daily as at times, his blood pressure is somewhat on the lower side. The patient is stable to be transferred out of ICU. MMODL / IJN: [id number] /
[2023-02-06 12:31] LABS: Glucose,Whole Blood 146 mg/dL (70-110)
--- NOTE | 2023-02-06 13:14 | P.PN ---
Subjective Progress Note Date: 02/06/23 Principal diagnosis: Possible pneumonia Patient is a 57-year-old male with a past medical history significant for COPD apparently the patient was recently admitted to the [facility] about 5 days ago and the patient left AGAINST MEDICAL ADVICE patient subsequently presenting back to the hospital with worsening shortness of breath and hypoxemia patient was noted to be in new onset atrial flutter, patient did have a CT at the outside facility and reported negative for cardiopulmonary disease and the patient was subsequently transferred to [facility] for management of his atrial fibrillation and rapid ventricular response On today's evaluation that is 02/06/2023, the patient continues to be afebrile, the patient is feeling better and breathing comfortably on a 5 L nasal cannula, patient denies having any chest pain he did have a cough with some sputum production no nausea no vomiting no abdominal pain or diarrhea Objective - Vital Signs Vital signs: Vital Signs Temp 98.7 F 02/06/23 08:00 Pulse 76 02/06/23 11:36 Resp 16 02/06/23 09:00 BP 127/76 02/06/23 09:00 Pulse Ox 94 L 02/06/23 11:00 FiO2 50 02/05/23 04:00 Intake & Output 02/05/23 02/06/23 02/06/23 18:59 06:59 18:59 Intake Total 383.884 9462.115 1950 Output Total 2205 1180 710 Balance -1640.731 98.115 1240 Weight 124.7 kg Intake: IV 445 220 150 Invasive Line 5 10 Invasive Line 6 10 Piperacillin-Tazobactam 3 100 100 .375 gm In Sodium Chloride 0.9% 100 ml @ 25 mls/hr IVPB Q8HR [facility] Rx# :[id number] Sodium Chloride 0.9% 1, 345 220 30 000 ml @ 20 mls/hr IV . Q24H [facility] Rx#:[id number] Intake, IV Titration 19.269 58.115 Amount Dexmedetomidine/0.9% NaCl 19.269 58.115 (Pmx) 400 mcg In Empty Bag 1 bag @ 0.2 MCG/KG/HR 6.165 mls/hr IV .[id number] [facility] Rx#:[id number] Oral 100 1000 1800 Output: Urine 2205 1180 710 Other: Voiding Method Indwelling Catheter Indwelling Catheter Indwelling Catheter - Exam GENERAL DESCRIPTION: Middle-age male lying in bed in no distress RESPIRATORY SYSTEM: Unlabored breathing , decreased intensity of breath sounds HEART: S1 S2 regular rate and rhythm , ABDOMEN: Soft , no tenderness EXTREMITIES: No edema feet - Labs CBC & Chem 7: 02/06/23 03:15 02/06/23 03:15 Labs: Abnormal Lab Results - Last 24 Hours (Table) 02/05/23 02/05/23 02/05/23 Range/Units 12:02 16:50 20:24 RBC (4.30-5.90) m/uL Plt Count (150-450) k/uL Lymphocytes # (1.0-4.8) k/uL Chloride (98-107) mmol/L Carbon Dioxide (22-30) mmol/L BUN (9-20) mg/dL Glucose (74-99) mg/dL POC Glucose (mg/dL) 158 H 150 H 382 H (70-110) mg/dL Calcium (8.4-10.2) mg/dL ALT (4-49) U/L Alkaline Phosphatase (38-126) U/L Total Protein (6.3-8.2) g/dL Albumin (3.5-5.0) g/dL 02/05/23 02/06/23 02/06/23 Range/Units 20:29 03:15 03:15 RBC 4.24 L (4.30-5.90) m/uL Plt Count 122 L (150-450) k/uL Lymphocytes # 0.2 L (1.0-4.8) k/uL Chloride 95 L (98-107) mmol/L Carbon Dioxide 34 H (22-30) mmol/L BUN 34 H (9-20) mg/dL Glucose 105 H (74-99) mg/dL POC Glucose (mg/dL) 345 H (70-110) mg/dL Calcium 7.7 L (8.4-10.2) mg/dL ALT 76 H (4-49) U/L Alkaline Phosphatase 33 L (38-126) U/L Total Protein 5.4 L (6.3-8.2) g/dL Albumin 3.2 L (3.5-5.0) g/dL 02/06/23 Range/Units 06:38 RBC (4.30-5.90) m/uL Plt Count (150-450) k/uL Lymphocytes # (1.0-4.8) k/uL Chloride (98-107) mmol/L Carbon Dioxide (22-30) mmol/L BUN (9-20) mg/dL Glucose (74-99) mg/dL POC Glucose (mg/dL) 188 H (70-110) mg/dL Calcium (8.4-10.2) mg/dL ALT (4-49) U/L Alkaline Phosphatase (38-126) U/L Total Protein (6.3-8.2) g/dL Albumin (3.5-5.0) g/dL Microbiology - Last 24 Hours (Table) 02/01/23 19:22 Blood Culture - Preliminary Blood 02/05/23 11:00 Gram Stain - Preliminary Sputum Sputum Culture - Preliminary Assessment and Plan (1) Acute exacerbation of chronic obstructive pulmonary disease Current Visit: Yes Status: Acute Code(s): J44.1 - CHRONIC OBSTRUCTIVE PULM ONARY DISEASE W (ACUTE) EXACERBATION SNOMED Code(s): 764305537 Plan: 1patient presented to hospital with increasing shortness of breath which is likely multifactorial in this patient with a COPD exacerbation with a tracheobronchitis and concern for possible worsening with atrial fibrillation and rapid ventricular response, clinically not behaving as pneumonia as the patient did not have any fever White count has been normal chest x-ray no acute infiltrate 2-patient x-ray shows mostly left-sided infiltrated the question of possible pneumonia patient seemed to have some clinical improvement, patient antibiotics has been switched over to oral Augmentin and we will monitor the patient closely Time with Patient: Less than 30
[2023-02-06] MEDS: SUBOXONE SUBLINGUAL SCH (14:24)
--- NOTE | 2023-02-06 16:20 | P.PN ---
Progress Note - Text Progress Note Date: 02/06/23 Hospital course: This is a 57-year-old male who follows with Dr. Marty Richard in the outpatient s etting was recently admitted with shortness of breath with COPD exacerbation with acute hypoxic respiratory failure. Patient has been intermittently using BiPAP as well as nasal cannula. Patient continues to be in the ICU. Multiple medical consultations following including cardiology is patient is in uncontrolled rhythm with atrial flutter with rapid ventricular rate and heart rate increased into the 150s and 160s today. Patient extremely agitated and had an episode of ripping out his IVs and wanting to leave AGAINST MEDICAL ADVICE. Nursing staff petitioning the patient for increased agitation and will have psychiatric evaluation as well. Social work is following working as patient may have a legal guardian. Patient is currently afebrile denies chest pain or palpitations. Patient reports his heart rate was elevated because he was worked up and agitated. No reports of nausea or vomiting noted patient is tolerating diet. 02/05/2023 Patient is seen and evaluated in follow-up in the ICU currently maintained on low-dose Precedex as patient was significantly agitated and wanted to leave AGAINST MEDICAL ADVICE. Patient is currently maintained on 6-8 L via nasal cannula with intermittently using BiPAP with multiple medical consultations following including psychiatry and pulmonary consumer services consultant. Patient is lethargic currently although arousable. Patient being followed by cardiology as well and currently sinus rhythm on oral amiodarone along with metoprolol and is anticoagulated with eliquis. Patient also continues on IV antibiotics in the form of Zosyn with concerns of aspiration pneumonia. Patient is currently afebrile and blood pressures are on the lower side although not requiring pressor support. WBC is within normal limits at 5.6, hemoglobin is 12.8 and platelets are 133. Sodium is 135 with a potassium of 4.9 and creatinine is 0.7 by. Patient had chest x-ray this morning showing ongoing left upper lobe collapse and consolidation along with left total effusion which is slightly increased with concerns of possible mild pulmonary vascular congestion. Patient did receive a dose of IV Lasix today. Recommend follow-up labs and repeat chest x-ray in the a.m. 02/06/2023: I assumed care of the patient from [facility]. ICU. Sitting up in a chair. Sinus rhythm. 5 L nasal cannula. At home patient is on 4 L nasal cannula. Had a bowel movement. Up to the bathroom. Patient be switched over to oral prednisone. Also swished over to oral Augmentin. Patient is about 15 steps at home. Lives with a friend called Vince. Discussed with the patient that rather than going home today, but that on walking see how he does.. And hopefully then can be discharged tomorrow. This was discussed with nurse maude. Patient was seen by psychiatry. [place] to have delirium. Patient is answering questions appropriately today. Active Medications Acetaminophen (Acetaminophen Tab 325 Mg Tab) 650 mg PO Q6HR PRN PRN Reason: Mild Pain or Fever > 100.5 Last Admin: 02/02/23 14:51 Dose: 650 mg Albuterol/Ipratropium (Ipratropium-Albuterol 3 Ml Neb) 3 ml INHALATION RT-QID [facility] Last Admin: 02/06/23 15:39 Dose: 3 ml Albuterol/Ipratropium (Ipratropium-Albuterol 3 Ml Neb) 3 ml INHALATION RT-Q2H PRN PRN Reason: Shortness Of Breath Or Wheezing Last Admin: 02/04/23 00:50 Dose: 3 ml Amiodarone HCl (Amiodarone 200 Mg Tab) 200 mg PO TID [facility] Last Admin: 02/06/23 09:50 Dose: 200 mg Amoxicillin/Clavulanate Potassium (Amoxic-Pot Clav 875-125mg 1 Each Tab) 1 each PO Q12HR [facility]; Protocol Last Admin: 02/06/23 09:54 Dose: 1 each Apixaban (Apixaban 5 Mg Tab) 5 mg PO BID [facility]; Protocol Last Admin: 02/06/23 09:50 Dose: 5 mg Aspirin (Aspirin 81 Mg) 81 mg PO DAILY [facility] Last Admin: 02/06/23 09:50 Dose: 81 mg Atorvastatin Calcium (Atorvastatin 40 Mg Tab) 40 mg PO DAILY [facility] Last Admin: 02/06/23 09:50 Dose: 40 mg Budesonide/Formoterol Fumarate (Symbicort 160-4.5 Mcg Inhaler) 2 puff INHALATION RT-BID [facility] Last Admin: 02/06/23 09:42 Dose: Not Given Dextrose/Water (Dextrose 50% Syringe 50 Ml) 25 ml IVP PER PROTOCOL PRN; Protocol PRN Reason: Hypoglycemia Dextrose/Water (Dextrose 50% Syringe 50 Ml) 50 ml IVP PER PROTOCOL PRN; Protocol PRN Reason: Hypoglycemia Gabapentin (Gabapentin 300 Mg Cap) 300 mg PO TID [facility] Last Admin: 02/06/23 09:50 Dose: 300 mg Insulin Aspart (Insulin Aspart (Novolog) 100 Unit/Ml Vial) 0 unit SQ ACHS [facility]; Protocol Last Admin: 02/06/23 12:40 Dose: Not Given Lisinopril (Lisinopril 10 Mg Tab) 10 mg PO DAILY [facility] Metoprolol Tartrate (Metoprolol Tartrate 25 Mg Tab) 25 mg PO BID [facility] Naloxone HCl (Naloxone 0.4 Mg/Ml 1 Ml Vial) 0.2 mg IV Q2M PRN PRN Reason: Opioid Reversal Nicotine (Nicotine 21mg/24hr Patch) 1 patch TRANSDERM DAILY [facility] Last Admin: 02/06/23 09:51 Dose: 1 patch Non-Formulary Medication (Vilazodone Hcl [Viibryd]) 20 mg PO DAILY [facility] Last Admin: 02/05/23 09:04 Dose: Not Given Suboxone ( Buprenorphine/Naloxone) 4mg/1mg* * Sl Film 1 film SUBLINGUAL DAILY@1400 [facility] Last Admin: 02/06/23 14:24 Dose: 1 film Buprenorphine/Naloxone 4mg/1mg Sl Film 2 each SUBLINGUAL BID@0800,2000 [facility] Last Admin: 02/06/23 10:14 Dose: 2 each Pantoprazole Sodium (Pantoprazole 40 Mg/10 Ml Vial) 40 mg IVP DAILY [facility] Last Admin: 02/06/23 09:51 Dose: 40 mg Polyethylene Glycol (Polyethylene Glycol 3350 17 Gm Powd.Pack) 17 gm PO DAILY [facility] Last Admin: 02/06/23 10:21 Dose: 17 gm Prednisone (Prednisone 20 Mg Tab) 40 mg PO DAILY [facility] Last Admin: 02/06/23 09:58 Dose: 40 mg Quetiapine Fumarate (Quetiapine 100 Mg Tab) 100 mg PO HS [facility] Last Admin: 02/05/23 20:53 Dose: 100 mg Tamsulosin HCl (Tamsulosin 0.4 Mg Cap.Er.24h) 0.4 mg PO DAILY [facility] Last Admin: 02/06/23 09:50 Dose: 0.4 mg On examination: VITAL SIGNS: [98.5, 90, 17, 107/81, 93% on 5 L] GENERAL APPEARANCE: BMI 41.8, sitting up in chair, eating lunch HEENT: Normal external appearance of nose and ear. Oral cavity normal EYES: Pupils equal. Conjunctiva normal. NECK: JVD unable to assess. Mass not palpable. RESPIRATORY: Respiratory effort increased. Lungs decreased breath sounds CARDIOVASCULAR: First and second sounds normal. No edema. ABDOMEN: Soft. Liver and spleen not palpable. No tenderness. No mass palpable. PSYCHIATRY: Alert and oriented x3. Mood and affect slightly anxious INVESTIGATIONS, reviewed in the clinical context: February 06: White count 6.3 hemoglobin 13.2 platelets 122 potassium 5.1 BUN 34 creatinine 0.79 Chest x-ray: Left basilar patchy airspace obesity. CT chest without contrast: Left upper lobe atelectasis and consolidation. Right midlung 6 mm groundglass nodule. 2-D echocardiogram: EF 45%. Moderate concentric LVH. Moderate right ventricle dilatation. Assessment and plan: Acute COPD exacerbation, requiring BiPAP and nasal cannula: Better Probable chronic cor pulmonale Possible acute bilateral pneumonia: Better Acute on chronic [4 L of oxygen at home] hypoxic respiratory failure secondary to above: Improving Atrial flutter with RVR, new onset, currently converted to sinus rhythm and rate controlled Acute on chronic systolic heart failure with an EF of 45%: Better diabetes mellitus, type II uncontrolled with Hyperglycemia, hemoglobin A1c is 5.9 Coronary artery disease history with stenting Hypertension Hyperlipidemia History of brain aneurysm Morbid obesity with a BMI of 41.3 Chronic nicotine dependence, cigarette smoker Acute delirium, multifactorial. Better Full code Patient got to 5 L nasal cannula. IV Solu-Medrol being changed over to oral prednisone. IV Zosyn being changed to Augmentin. Patient also being changed over to Symbicort. Increase activity. Discussed with patient and nurse. Hopefully discharge home tomorrow.
[2023-02-06 17:40] LABS: Glucose,Whole Blood 158 mg/dL (70-110)
[2023-02-06] MEDS: NON FORMULARY DRUG (Vilazodone Hcl [Viibryd] 20 MG Tablet) PO SCH (18:06)
[2023-02-06 21:00] LABS: Glucose,Whole Blood 190 mg/dL (70-110)
[2023-02-06] MEDS: LORazepam 1 MG TAB PO PRN (21:17)
[2023-02-06] MEDS: QUEtiapine 100 MG TAB PO SCH (21:42)
[2023-02-06] MEDS: BUPRENORPHINE-NALOX 8-2 MG TAB 1 EACH TAB.SUBL SL SCH (21:42)
[2023-02-06] MEDS: NON FORMULARY DRUG (Dextroamphetamine/Amphetamine [Adderall Xr 30 Mg Capsule] 30 MG Cap.Er PO SCH (22:50)
[2023-02-07 05:43] VITALS: BP 115/66; RESP 14; TEMP 97.9
[2023-02-07 06:21] LABS: Glucose,Whole Blood 116 mg/dL (70-110)
[2023-02-07] MEDS: INSULIN ASPART (NovoLOG) 100 UNIT/ML VIAL SQ SCH (06:52)
[2023-02-07] MEDS: SYMBICORT 160-4.5 MCG INHALER INHALATION SCH (07:57)
[2023-02-07] MEDS: IPRATROPIUM-ALBUTEROL 3 ML NEB INHALATION SCH (07:57)
[2023-02-07 08:01] VITALS: PULSE 92
[2023-02-07] MEDS ORDERED: FUROSEMIDE 10 MG/ML 4 ML VIAL IV STA (08:14)
--- NOTE | 2023-02-07 08:15 | P.PN ---
Subjective Progress Note Date: 02/07/23 I am seeing this patient today 02/02/2023 in new consultation in regard to ICU management for acute hypoxic and hypercapnic respiratory failure related to COPD exacerbation and new onset atrial flutter. Patient is a 57-year-old white male with past medical history significant for severe COPD with an FEV1 39% of predicted, chronic oxygen dependence normally maintained on 3 L nasal cannula, current 1-1/2 pack per day smoker, previous respiratory failure and mechanical ventilator dependence, coronary artery disease with previous stents to the LAD and RCA, polysubstance abuse, chronic back pain, and previous brain aneurysms. Patient was transferred from [facility] yesterday afternoon for worsening dyspnea and hypoxia. He was reportedly previously seen at the outside facility 5 days prior, and left AGAINST MEDICAL ADVICE, because he wanted to attend his brother's . He did return to [facility] for dyspnea and chest palpitations. He was found to be in atrial flutter. Initial workup at outside facility included a nonenhanced chest CT which showed no acute cardiopulmonary process. Patient was placed on the BiPAP and transferred to [facility]. On arrival, VBG showed a pCO2 of 103, pH of 7.31. Chest x-ray showed cardiomegaly without any significant cardiopulmonary disease/process. He denies any fever, chills, cough, chest pain. Denies sick contacts. He also denies any weight gain, lower extremity swelling, orthopnea, lightheadedness, syncope. Patient is currently resting in bed, on BiPAP with settings 12/6 and FiO2 50%. He is calm and tolerating the BiPAP. His tidal volumes are only 200-250 ML's, respiratory rate 20 breaths per minute, and IPAP was increased to 14. Patient currently has Cardizem infusing at 15 mg per hour and low intensity heparin infusion per protocol. Heart rhythm is atrial flutter. His heart rate was as high as 150 bpm on arrival, and currently more controlled, with a rate of 100- 115 bpm. He is negative for influenza, RSV, COVID-19. CBC on arrival was unremarkable. Empirically covered on Zosyn. Blood cultures are pending. He remains afebrile. BMP shows sodium 138, potassium 4.7, chloride 85, serum CO2 46, BUN 20, creatinine 0.77, glucose 139. Normal saline infusing at 75 mL per hour. D-dimer was 0.41. NT proBNP was elevated at 1410. Currently receiving a combination of budesonide inhalation, formoterol inhalation, DuoNeb's, and IV Solu-Medrol. Vital signs are stable. On today's evaluation of 02/03/2023, the patient is being seen for a follow-up. He is still lethargic. Arousable. He communicates effectively. His answering questions. He stated on BiPAP throughout the day yesterday at a pressures of 14/6 and the patient is currently off the BiPAP and he is on nasal cannula at 4 L. His to bronchospastic and wheezy and congested. He remains on a combination of bronchodilators and steroids. Note that the patient is chronically dependent on oxygen and he takes oxygen at 3 L at home. At the same time, the patient remains in atrial flutter. He remains on Cardizem drip at 15 mg and he was started also on beta blockers and currently is on metoprolol at a dose of 25 mg twice a day and within the process of gradually weaning down the Cardizem drip. Echocardiogram was done yesterday and the patient was found to have a left ventricular ejection fraction of around 45%. The patient had no significant valvular abnormalities. He did have some mild mitral regurgitation and aortic stenosis. He had dilatation of the right ventricle related to chronic lung disease and his right ventricular systolic pressure was 39 mmHg. He remains on IV heparin. The white cell count today's of 4.9 with a hemoglobin of 11.9 and a platelet count of 143, BUN is 22 with a creatinine of 0.7. Free T4 is normal at 0.9. Blood sugars are modestly elevated and the patient is on a sliding scale insulin coverage. He is on IV Zosyn as an empiric antibiotic coverage. Note that his pro calcitonin level at the time of admission was mildly elevated. His chest x-ray somewhat debilitated and the patient has a limited infiltrate/effusion left lung base. No other significant events overnight. No agitation. Mental status is adequate. Hemoglobin A1c is at 7.8. On 02/04/2023, the patient is being seen for a follow-up. He seems to be much more awake compared to yesterday and less lethargic. He is slightly unreasonable and he wants to go home as he states that he lives across the street from the hospital. Nevertheless, he is not healthy enough or stable enough to be discharged out of the intensive care unit. The patient is currently off the BiPAP. He was on a BiPAP throughout the night and he was taken off the BiPAP and currently is on oxygen at 4 L. His last rhonchus spastic and wheezing compared to yesterday. He is to be less short of breath and the breathing is more comfortable. However, he has an ongoing issue with atrial flutter. He remains in flutter 221 with a rapid heart rate of 160. 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 Unfortunately, no response. He continues to be tachycardic. He is on anti-cognition with Eliquis. He is on IV fluids with normal saline at rate of 75 mL an hour. Adequate urine output. Blood work from today shows a white cell count of 4.2, hemoglobin 12.5, platelet count of 135, knee and is a 26 with a creatinine of 0.7 and sodium level is at 135. He remains on bronchodilators. He remains on IV Solu-Medrol 60 mg every 6 hours. He was given Seroquel 200 mg at bedtime as of yesterday to improve his agitation/restlessness/delirium. He remains on empiric antibiotic coverage with IV Zosyn. As mentioned, is kept on aspirin and anticoagulation with Eliquis was started yesterday. He is following commands and answering questions. No focal neurological deficits. 02/05/2023, the patient is much more stable compared to yesterday. Noted the patient was having significant restlessness around with some altered mentation to the point where the patient wanted to leave AMA. I petitioned the patient. A psych evaluation was obtained. The patient was placed on Precedex which is still running at a dose of 0.1 mcg/kg/m. He is much more comfortable and rested and communicating and is alert and oriented on today's evaluation. At the same time, is less short of breath. Less bronchospastic and wheezy compared to yesterday. In terms of his atrial flutter, the patient was placed on a comb ination of Cardizem drip and amiodarone drip yesterday. Ultimately converted into sinus and this morning he is off the Cardizem drip and is off the amiodarone drip and his heart rate is normal sinus rhythm with a rate of 75. He is currently on metoprolol at a dose of 25 mg 3 times a day. He is also on anticoagulation with Eliquis 5 mg twice a day. As mentioned, his cardiac rhythm is back to sinus. He was also given verapamil 80 mg by mouth 3 times a day for rate control. In terms of his breathing and oxygenation, the patient is currently off the BiPAP. Is on 8 L of oxygen by nasal cannula. The chest x-ray from today is showing opacification of the left lung base, could be and atelect asis along with an area of pleural effusion. The patient will be provided incentive spirometer. The white cell count is at 5.6 with a hemoglobin of 12.8 and a platelet count of 133. BUN is at 32 with a creatinine of 0.7 and his sodium level is at 135. He remains on bronchodilators. He remains on IV Solu- Medrol 60 mg every 6 hours. He remains on IV Zosyn as an empiric antibiotic coverage. Blood cultures have been negative. His pro calcitonin level at the time of admission was 0.03. 02/06/2023, the patient is awake and alert and communicating. He seems to much more reasonable this conversations today. He uses sun wanted to go home. He states that he has bills he has to make arrangements for living arrangements in his apartment. Is also worried that he doesn't pay today rants, he may be evicted from his apartment. Based on that, the patient is very much eager to go home. Is currently on 5 L of oxygen by nasal cannula. Is awake and alert. Breathing is nonlabored. No shortness of breath at rest. His cardiac rhythm is back into normal sinus rhythm and we have not witnessed any further episodes of atrial flutter over the past 24 hours. He is communicating. His swallowing. She is tolerating diet. Doppler signals at 6.3 with a hemoglobin 13.2 and a platelet count of 142. He had a 34 with a creatinine of 0.7 and his sodium level is 137. The patient's chest x-ray from today shows a small left-sided pleural effusion and some patchy infiltrates in the lung bases bilaterally. Otherwise no other acute abnormalities are seen. The patient remains on bronchodilators. The patient remains on IV Solu-Medrol. The patient is on empiric antibiotic coverage with IV Zosyn. The patient was switched to oral amiodarone and anticoagulation with Eliquis as of yesterday. 02/07/2023, the patient is looking great. Exelon mentation. He is alert and awake and communicating. His breathing is improved. Cardiac rhythm is sinus. Hemodynamically stable. Afebrile. He has no specific complaints. I think he can be potentially even discharged home. He was released out of the intensive care unit yesterday and he is currently a medical overflow. In summary, the patient remains on oral Augmentin, prednisone burst taper and DuoNeb neb blotchiness on the clock. Is also on Symbicort. His cardiac rhythm is sinus. He remains on metoprolol 25 mg twice a day. Is on anticoagulation with Eliquis. He is having some increased edema in his lower extremities. He takes Lasix on outpatient basis. Also, I note that the patient is on Breztri on outpatient basis and this can be resumed. Tolerating diet. Ambulating. Currently on oxygen at 4 L Objective - Vital Signs Vital signs: Vital Signs Temp 97.9 F 02/07/23 04:00 Pulse 92 02/07/23 08:10 Resp 14 02/07/23 04:00 BP 115/66 02/07/23 04:00 Pulse Ox 94 L 02/07/23 04:00 FiO2 50 02/05/23 04:00 Intake & Output 02/06/23 02/07/23 02/07/23 18:59 06:59 18:59 Intake Total 4490 Output Total 4660 1900 Balance -170 -1900 Weight 124.7 kg 128 kg Intake: IV 290 Invasive Line 5 30 Invasive Line 6 30 Piperacillin-Tazobactam 3 200 .375 gm In Sodium Chloride 0.9% 100 ml @ 25 mls/hr IVPB Q8HR [facility] Rx# :[id number] Sodium Chloride 0.9% 1, 30 000 ml @ 20 mls/hr IV . Q24H [facility] Rx#:[id number] Oral 4200 Output: Urine 4660 1900 Other: Voiding Method Indwelling Catheter # Bowel Movements 1 - Exam GENERAL EXAM: Alert, 57-year-old white male, on the 4 L nasal cannula HEAD: Normocephalic and atraumatic EYES: Normal reaction of pupils, equal size. NOSE: Clear with pink turbinates. THROAT: No erythema or exudates. NECK: No masses, no JVD. CHEST: No chest wall deformity. LUNGS: Equal air entry with expiratory wheezes throughout. no crackles, rhonchi or focal dullness. On 5 L of oxygen by nasal cannula and the patient is less short of breath unless bronchus spastic and wheezing compared to yesterday CVS: S1 and S2 normal with no audible murmur, ABDOMEN: Obese abdomen. No hepatosplenomegaly, active bowel sounds, no guarding or rigidity. SPINE: No scoliosis or deformity SKIN: No rashes CENTRAL NERVOUS SYSTEM: No focal deficits, tone is normal in all 4 extremities. EXTREMITIES: There is no peripheral edema, clubbing, or cyanosis. Peripheral pulses are intact. - Labs CBC & Chem 7: 02/06/23 03:15 02/06/23 03:15 Labs: Abnormal Lab Results - Last 24 Hours (Table) 02/06/23 02/06/23 02/06/23 Range/Units 12:30 17:38 20:58 POC Glucose (mg/dL) 146 H 158 H 190 H (70-110) mg/dL 02/07/23 Range/Units 06:20 POC Glucose (mg/dL) 116 H (70-110) mg/dL Microbiology - Last 24 Hours (Table) 02/01/23 19:22 Blood Culture - Preliminary Blood 02/05/23 11:00 Gram Stain - Preliminary Sputum Sputum Culture - Preliminary Assessment and Plan Assessment: Acute on chronic hypoxic respiratory failure, currently on 5 L. The patient is off BiPAP. The patient did have a consolidation left lower lobe with small effusion. Repeat chest x-ray from today shows improving aeration of the left lung base. There is a small left pleural effusion still present. He is actually patient is improved considerably. New-onset atrial flutter, converted into normal sinus rhythm and the patient is currently on metoprolol 25 mg 3 times a day, verapamil 80 mg 3 times a day and Eliquis. Mild systolic heart failure with an ejection fraction of 45% Acute COPD exacerbation. Chest x-ray showed no obvious focal consolidation or pneumonia. Negative for COVID-19, influenza, RSV. The patient is currently off the BiPAP and transitioned 5 L of oxygen nasal cannula Acute on chronic hypoxemic and hypercapnic respiratory failure secondary to above. Currently off BiPAP although he can still use BiPAP on and off during the day and overnight. He was transitioned to 5 L O2 nasal cannula History of previous respiratory failure and ventilator dependence related to COPD exacerbation Coronary artery disease with previous stents to the LAD and RCA Hypertension Hyperlipidemia Morbid Obesity with a BMI of 41 History of polysubstance abuse, on Suboxone outpatient Chronic back pain Chronic nicotine dependence, Current 1-1/2 pack per day smoker History of brain aneurysm Plan: Keep the patient on 4 L nasal cannula Lasix 40 mg IV push 1, and start the patient on Lasix 40 mg on a daily basis Prednisone burst taper Complete the course of Augmentin Check pro calcitonin level was 0.03 Check sputum Gram stain and culture Continue bronchodilators and steroids The patient can be discharged home on Breztri 2 puffs twice a day, DuoNeb about treatments [id number]-sarnm and prednisone burst taper along with oxygen and he has a home oxygen unit metoprolol 25 milligrams by mouth 3 times a day and Eliquis Cardiac rhythm is back into sinus Duong catheter has been removed He is ambulating Potentially discharged home today to be followed up on outpatient basis. No smoking and smoking cessation counseling was done.
[2023-02-07] MEDS ORDERED: lisinopriL 10 MG TAB PO SCH (09:00)
[2023-02-07] MEDS: NON FORMULARY DRUG (Vilazodone Hcl [Viibryd] 20 MG Tablet) PO SCH (09:13)
[2023-02-07] MEDS: BUPRENORPHINE-NALOX 8-2 MG TAB 1 EACH TAB.SUBL SL SCH (09:14)
[2023-02-07] MEDS: NON FORMULARY DRUG (Dextroamphetamine/Amphetamine [Adderall Xr 30 Mg Capsule] 30 MG Cap.Er PO SCH (09:14)
[2023-02-07] MEDS: polyethylene glycoL 3350 17 GM POWD.PACK PO SCH (09:54)
[2023-02-07] MEDS: NICOTINE 21MG/24HR PATCH TRANSDERM SCH (09:54)
[2023-02-07] MEDS: PANTOPRAZOLE 40 MG/10 ML VIAL IVP SCH (09:54)
[2023-02-07] MEDS: ATORVASTATIN 40 MG TAB PO SCH (09:55)
[2023-02-07] MEDS: ASPIRIN 81 MG PO SCH (09:55)
[2023-02-07] MEDS: METOPROLOL TARTRATE 25 MG TAB PO SCH (09:55)
[2023-02-07] MEDS: GABAPENTIN 300 MG CAP PO SCH (09:55)
[2023-02-07] MEDS: APIXABAN 5 MG TAB PO SCH (09:55)
[2023-02-07] MEDS: AMIODARONE 200 MG TAB PO SCH (09:56)
[2023-02-07] MEDS: AMOXIC-POT CLAV 875-125MG 1 EACH TAB PO SCH (09:56)
[2023-02-07] MEDS: TAMSULOSIN 0.4 MG CAP.ER.24H PO SCH (09:56)
[2023-02-07] MEDS: predniSONE 20 MG TAB PO SCH (09:56)
[2023-02-07] MEDS: LORazepam 1 MG TAB PO PRN (10:01)
[2023-02-07] MEDS ORDERED: BUPRENORPHINE-NALOX 8-2 MG TAB 1 EACH TAB.SUBL SL SCH (14:00)
--- NOTE | 2023-02-07 22:01 | P.DS ---
Providers Date of admission: 02/01/23 14:08 Expected date of discharge: 02/07/23 Attending physician: Zhou Jameson Consults: 02/01/23 14:08 Consult Physician Urgent Consulting Provider: Shlomo Castaneda Consult Reason/Comments: COPD, A flutter Do you want consulting provider notified?: Already Contacted 02/01/23 14:13 Consult Physician Routine Consulting Provider: Stefan Leon Consult Reason/Comments: NEW A FLUTTER WITH RVR Do you want consulting provider notified?: Yes 02/01/23 16:07 Consult Physician Routine Consulting Provider: Ed Smalls Consult Reason/Comments: pneumonia Do you want consulting provider notified?: Yes 02/04/23 10:20 Consult Physician Stat Consulting Provider: Jeb Mccann Consult Reason/Comments: eval mental capacity Do you want consulting provider notified?: Yes Primary care physician: Marty Richard Hospital Course: Hospital course: This is a 57-year-old male who follows with Dr. Marty Richard in the outpatient setting was recently admitted with shortness of breath with COPD exacerbation with acute hypoxic respiratory failure. Patient has been intermittently using BiPAP as well as nasal cannula. Patient continues to be in the ICU. Multiple medical consultations following including cardiology is patient is in uncontrolled rhythm with atrial flutter with rapid ventricular rate and heart rate increased into the 150s and 160s today. Patient extremely agitated and had an episode of ripping out his IVs and wanting to leave AGAINST MEDICAL ADVICE. Nursing staff petitioning the patient for increased agitation and will have psychiatric evaluation as well. Social work is following working as patient may have a legal guardian. Patient is currently afebrile denies chest pain or palpitations. Patient reports his heart rate was elevated because he was worked up and agitated. No reports of nausea or vomiting noted patient is tolerating diet. 02/05/2023 Patient is seen and evaluated in follow-up in the ICU currently maintained on low-dose Precedex as patient was significantly agitated and wanted to leave AGAINST MEDICAL ADVICE. Patient is currently maintained on 6-8 L via nasal cannula with intermittently using BiPAP with multiple medical consultations following including psychiatry and pulmonary sterilization tech. Patient is lethargic currently although arousable. Patient being followed by cardiology as well and currently sinus rhythm on oral amiodarone along with metoprolol and is anticoagulated with eliquis. Patient also continues on IV antibiotics in the form of Zosyn with concerns of aspiration pneumonia. Patient is currently afebrile and blood pressures are on the lower side although not requiring pressor support. WBC is within normal limits at 5.6, hemoglobin is 12.8 and platelets are 133. Sodium is 135 with a potassium of 4.9 and creatinine is 0.7 by. Patient had chest x-ray this morning showing ongoing left upper lobe collapse and consolidation along with left total effusion which is slightly increased with concerns of possible mild pulmonary vascular congestion. Patient did receive a dose of IV Lasix today. Recommend follow-up labs and repeat chest x-ray in the a.m. 02/06/2023: I assumed care of the patient from [facility]. ICU. Sitting up in a chair. Sinus rhythm. 5 L nasal cannula. At home patient is on 4 L nasal cannula. Had a bowel movement. Up to the bathroom. Patient be switched over to oral prednisone. Also swished over to oral Augmentin. Patient is about 15 steps at home. Lives with a friend called Vince. Discussed with the patient that rather than going home today, but that on walking see how he does.. And hopefully then can be discharged tomorrow. This was discussed with nurse page. Patient was seen by psychiatry. [place] to have delirium. Patient is answering questions appropriately today. February 07: Doing well. Breathing stable. Counseled patient at length about smoking. Questions answered. Dietary lifestyle discussed. Follow-ups discussed. Cleared for discharge. Discussion and discharge planning more than 35 minutes On examination: VITAL SIGNS: 97.9, 81, 14, 115/66, 94% on 4 L GENERAL APPEARANCE: BMI 41.8, comfortable HEENT: Normal external appearance of nose and ear. Oral cavity normal EYES: Pupils equal. Conjunctiva normal. NECK: JVD unable to assess. Mass not palpable. RESPIRATORY: Respiratory effort normal. Lungs decreased breath sounds CARDIOVASCULAR: First and second sounds normal. No edema. ABDOMEN: Soft. Liver and spleen not palpable. No tenderness. No mass palpable. PSYCHIATRY: Alert and oriented x3. Mood and affect slightly anxious INVESTIGATIONS, reviewed in the clinical context: February 06: White count 6.3 hemoglobin 13.2 platelets 122 potassium 5.1 BUN 34 creatinine 0.79 Chest x-ray: Left basilar patchy airspace obesity. CT chest without contrast: Left upper lobe atelectasis and consolidation. Right midlung 6 mm groundglass nodule. 2-D echocardiogram: EF 45%. Moderate concentric LVH. Moderate right ventricle dilatation. Assessment and plan: Acute COPD exacerbation, requiring BiPAP and nasal cannula: Better Probable chronic cor pulmonale Possible acute bilateral pneumonia: Better Acute on chronic [4 L of oxygen at home] hypoxic respiratory failure secondary to above: Improving Atrial flutter with RVR, new onset, currently converted to sinus rhythm and rate controlled Acute on chronic systolic heart failure with an EF of 45%: Better diabetes mellitus, type II uncontrolled with Hyperglycemia, hemoglobin A1c is 5.9 Coronary artery disease history with stenting Hypertension Hyperlipidemia History of brain aneurysm Morbid obesity with a BMI of 41.3 Chronic nicotine dependence, cigarette smoker Acute delirium, multifactorial. Better Full code Disposition: Home Plan - Discharge Summary New Discharge Prescriptions: New Amiodarone [Cordarone] 200 mg PO DIRECTED #60 tab Apixaban [Eliquis] 5 mg PO BID #60 tab Nicotine 21Mg/24Hr Patch [Habitrol] 1 patch TRANSDERM DAILY #14 patch Metoprolol Tartrate [Lopressor] 25 mg PO BID #60 tab QUEtiapine [SEROquel] 100 mg PO HS #30 tab Acetaminophen Tab [Tylenol] 650 mg PO Q6HR PRN tab PRN Reason: Mild Pain Or Fever > 100.5 predniSONE 10 mg PO DAILY #30 tab Continue Tamsulosin [Flomax] 0.4 mg PO DAILY Buprenorphine HCl/Naloxone HCl [Suboxone 4 mg-1 mg Sl Film] 1 film SL DAILY@1400 Aspirin 81 mg PO DAILY #30 tab Dextroamphetamine/Amphetamine [Adderall Xr 30 mg Capsule] 30 mg PO BID Vilazodone HCl [Viibryd] 20 mg PO DAILY LORazepam [Ativan] 1 mg PO TID PRN PRN Reason: Anxiety Albuterol Inhaler [Ventolin Hfa Inhaler] 2 puff INHALATION RT-Q4H PRN PRN Reason: Shortness Of Breath Budesonide/Glycopyr/Formoterol [Breztri Aerosphere Inhaler] 2 puff INHALATION RT-BID Gabapentin [Neurontin] 300 mg PO TID Atorvastatin [Lipitor] 40 mg PO DAILY #30 tab Furosemide [Lasix] 40 mg PO DAILY #60 tab Albuterol Nebulized [Ventolin Nebulized] 2.5 mg INHALATION Q6H 30 Days #6 pack Ipratropium/Albuter 20-100Mcg [Combivent Respimat 20-100Mcg Inhaler] 1 - 2 puff INHALATION RT-Q4H PRN PRN Reason: Shortness Of Breath Changed lisinopriL 20 mg PO HS #0 Discontinued Doxycycline Hyclate 100 mg PO BID cloNIDine HCL [Catapres] 0.1 mg PO TID QUEtiapine [SEROquel] 200 mg PO HS Buprenorphine HCl/Naloxone HCl [Suboxone 8 mg-2 mg Sl Film] 1 film SL BID@0800,2000 Isosorbide Mononitrate ER [Imdur] 30 mg PO DAILY #30 tablet Metoprolol Tartrate [Lopressor] 12.5 mg PO BID #60 tab predniSONE See Taper PO DIRECTED Discharge Medication List Albuterol Inhaler [Ventolin Hfa Inhaler] 2 puff INHALATION RT-Q4H PRN 03/13/21 [History] LORazepam [Ativan] 1 mg PO TID PRN 03/13/21 [History] Tamsulosin [Flomax] 0.4 mg PO DAILY 03/13/21 [History] Vilazodone HCl [Viibryd] 20 mg PO DAILY 03/13/21 [History] Budesonide/Glycopyr/Formoterol [Breztri Aerosphere Inhaler] 2 puff INHALATION RT-BID 12/07/21 [History] Buprenorphine HCl/Naloxone HCl [Suboxone 4 mg-1 mg Sl Film] 1 film SL DAILY@1400 12/07/21 [History] Gabapentin [Neurontin] 300 mg PO TID 12/07/21 [History] Albuterol Nebulized [Ventolin Nebulized] 2.5 mg INHALATION Q6H 30 Days #6 pack 12/11/21 [Rx] Aspirin 81 mg PO DAILY #30 tab 12/11/21 [Rx] Atorvastatin [Lipitor] 40 mg PO DAILY #30 tab 12/11/21 [Rx] Furosemide [Lasix] 40 mg PO DAILY #60 tab 12/11/21 [Rx] Dextroamphetamine/Amphetamine [Adderall Xr 30 mg Capsule] 30 mg PO BID 02/02/23 [History] Ipratropium/Albuter 20-100Mcg [Combivent Respimat 20-100Mcg Inhaler] 1 - 2 puff INHALATION RT-Q4H PRN 02/02/23 [History] Acetaminophen Tab [Tylenol] 650 mg PO Q6HR PRN tab 02/07/23 [Rx] Amiodarone [Cordarone] 200 mg PO DIRECTED #60 tab 02/07/23 [Rx] Apixaban [Eliquis] 5 mg PO BID #60 tab 02/07/23 [Rx] Metoprolol Tartrate [Lopressor] 25 mg PO BID #60 tab 02/07/23 [Rx] Nicotine 21Mg/24Hr Patch [Habitrol] 1 patch TRANSDERM DAILY #14 patch 02/07/23 [Rx] QUEtiapine [SEROquel] 100 mg PO HS #30 tab 02/07/23 [Rx] lisinopriL 20 mg PO HS #0 02/07/23 [Rx] predniSONE 10 mg PO DAILY #30 tab 02/07/23 [Rx] Follow up Appointment(s)/Referral(s): [facility] [Other] - 1 Week (unable to make appointment as office hours are not open, patient educated to call independently to make appointments during regular business hours ) Héctor Baltazar MD [STAFF PHYSICIAN] - 1 Week (unable to make appointment as office hours are not open, patient educated to call independently to make appointments during regular business hours ) Marty Richard MD [Primary Care Provider] - 1-2 days (unable to make appointment as office hours are not open, patient educated to call independently to make appointments during regular business hours ) Patient Instructions/Handouts: A-fib (Atrial Fibrillation) (DC), COPD (Chronic Obstructive Pulmonary Disease) (DC) Activity/Diet/Wound Care/Special Instructions: fluid restrict 2000 cc/day lisinopril is a home medication Discharge Disposition: HOME SELF-CARE
[2023-02-08] MEDS ORDERED: FUROSEMIDE 40 MG TAB PO SCH (09:00)
== END 2023-02-07 11:38 | disposition home or self-care (01) | DRG 193 ==
LOC: EC 12:41 → 2SICU 14:08
PROVIDERS: ADMIT Hospitalist; ATTEND Hospitalist
PROC: 5A09357 Assistance with Respiratory Ventilation, Less than 24 Consecutive Hours, Continuous Positive Airway Pressure (ICD-10-PCS; principal; 2023-02-01)
DX: J18.9 Pneumonia, unspecified organism (principal); G92.8 Other toxic encephalopathy; J96.21 Acute and chronic respiratory failure with hypoxia; J96.22 Acute and chronic respiratory failure with hypercapnia; I50.23 Acute on chronic systolic (congestive) heart failure; F05 Delirium due to known physiological condition; I42.9 Cardiomyopathy, unspecified; J44.0 Chronic obstructive pulmonary disease with (acute) lower respiratory infection; J44.1 Chronic obstructive pulmonary disease with (acute) exacerbation; I48.92 Unspecified atrial flutter; J98.19 Other pulmonary collapse; Z68.41 Body mass index [BMI] 40.0-44.9, adult; I27.81 Cor pulmonale (chronic); I11.0 Hypertensive heart disease with heart failure; E11.65 Type 2 diabetes mellitus with hyperglycemia; E66.01 Morbid (severe) obesity due to excess calories; F19.11 Other psychoactive substance abuse, in remission; I08.0 Rheumatic disorders of both mitral and aortic valves; F32.A Depression, unspecified; J69.0 Pneumonitis due to inhalation of food and vomit; I44.30 Unspecified atrioventricular block; I25.10 Atherosclerotic heart disease of native coronary artery without angina pectoris; R91.1 Solitary pulmonary nodule; G89.29 Other chronic pain; I48.0 Paroxysmal atrial fibrillation; F17.210 Nicotine dependence, cigarettes, uncomplicated; E78.5 Hyperlipidemia, unspecified; M54.9 Dorsalgia, unspecified; R00.0 Tachycardia, unspecified; Z20.822 Contact with and (suspected) exposure to COVID-19; Z99.81 Dependence on supplemental oxygen; Z95.5 Presence of coronary angioplasty implant and graft; Z79.899 Other long term (current) drug therapy; Z79.82 Long term (current) use of aspirin; Z79.891 Long term (current) use of opiate analgesic; Z79.51 Long term (current) use of inhaled steroids; Z86.79 Personal history of other diseases of the circulatory system; Z28.311 Partially vaccinated for COVID-19; I25.2 Old myocardial infarction; Z86.16 Personal history of COVID-19; Z88.5 Allergy status to narcotic agent
CPT/HCPCS: 36415; 71045; 71250; 80048; 80053; 81003; 82803; 83036; 83880; 84145; 84439; 84443; 85025; 85379; 85610; 85730; 87070; 87086; 87205; 87636; 93005; 93306; 94640; 94660; 96365; 96375; 99291